=== PATIENT | female | born 1945 | race Caucasian/White ===

== ENCOUNTER 2016-07-16 19:40 | Emergency (ER) ==
[2016-07-16 19:52] VITALS: BP 152/76; TEMP 99.1; BMI 36.7
--- NOTE | 2016-07-16 21:35 | ED.PDOC ---
General ED Provider: Dr. KANE SCHULZ Chief Complaint: Extremity Pain/Injury Stated Complaint: patient is a 70 year old female who comes to the Er with complaints of right arm pain. she had shoulder surgery last week withdressing applied. She has been guarding her shoulder. Today she woke up with bruzing on in and wanted it to be checked out. The orthopedic dotor told her the dressing to be removed today Time Seen by Physician: 21:30 Mode of Arrival: Wheelchair Information Source: Patient Exam Limitations: No limitations Primary Care Provider: MARIA BRYANT Nursing and Triage Documentation Reviewed and Agree: Yes Musculoskeletal Complaint Exam - Shoulder Pain Complaint/Exam Mechanism of Injury: Reports: Other (recent surgery ) Onset/Duration: 3 days Symptoms Are: Still present Timing: Constant Initial Severity: Moderate Current Severity: Moderate Location: Reports: Discrete Character: Reports: Aching, Throbbing Aggravating: Reports: Movement, Lifting Associated Signs and Symptoms: Reports: Swelling, Bruising. Denies: Redness, Fever, Weakness, Numbness, Tingling Related History: Denies: Similar episode Non-Orthopedic Risk Factors: Reports: None DVT Risk Factors: Reports: None Septic Arthritis Risk Factors: Reports: None Shoulder Findings: Present: Swelling. Absent: Abnormal contour, Rotation, Erythema, Warmth Tenderness: Present: Rotator cuff muscles Limited Range of Motion: Present: Rotator cuff muscles Differential Diagnoses: Sprain, Strain Review of Systems - Review Of Systems Constitutional: Reports: No symptoms Eyes: Reports: No symptoms Ears, Nose, Mouth, Throat: Reports: No symptoms Respiratory: Reports: No symptoms Cardiac: Reports: No symptoms GI: Reports: No symptoms : Reports: No symptoms Musculoskeletal: Reports: Joint pain Skin: Reports: No symptoms Neurological: Reports: Anxiety Endocrine: Reports: No symptoms Hematologic/Lymphatic: Reports: No symptoms All Other Systems: Reviewed and Negative Past Medical History - Past Medical History Previously Healthy: No Endocrine: Reports: DM 2 Cardiovascular: Reports: CAD, Hypertension Respiratory: Reports: COPD Hematological: Reports: Anemia Gastrointestinal: Reports: None Genitourinary: Reports: None Neuro/Psych: Reports: None Musculoskeletal: Reports: Arthritis, Back Pain Cancer: Reports: None Last Menstrual Period: post menopausal - Surgical History General Surgical History: Reports: None - Family History Family History: Reports: None - Social History Smoking Status: Former smoker Hx Substance Use: No Alcohol Screening: None - Immunizations Tetanus Shot up to Date: No (unsure) Physical Exam - Physical Exam Appearance: Well-appearing, Well-nourished Pain Distress: Moderate Eyes: KATHY, EOMI, Conjunctiva clear ENT: Ears normal, Nose normal, Oropharynx normal Neck: Supple Respiratory: Airway patent, Breath sounds clear, Breath sounds equal, Respirations nonlabored Cardiovascular: RRR, Pulses normal, No rub, No murmur GI/: Soft, Nontender, No masses, Bowel sounds normal, No Organomegaly Musculoskeletal: Normal strength, No edema, No calf tenderness, Limited ROM, Edema Skin: Warm, Dry Neurological: Sensation intact, Motor intact, Reflexes intact, Cranial nerves intact, Alert, Oriented Psychiatric: Anxious Critical Care Note - Critical Care Note Total Time (mins): 0 Course - Course Vital Signs: Temp Pulse Resp BP Pulse Ox 07/16/16 19:41 99.1 F 99 H 20 152/76 H 94 L Departure - Departure Time of Disposition: 21:58 Disposition: HOME SELF-CARE Discharge Problem: Shoulder contusion Instructions: Contusion in Adults (ED), Rotator Cuff Injury (ED) Condition: Stable Pt referred to PMD for follow-up: Yes Additional Instructions: Follow up with PCP in 3 days with PCP continue home pain medications. changes dressing as needed Allergies/Adverse Reactions: Allergies sulfamethoxazole [From Bactrim] Adverse Reaction (Verified 07/16/16 19:51) ABD PAIN trimethoprim [From Bactrim] Adverse Reaction (Verified 07/16/16 19:51) ABD PAINS PAPER TAPE Adverse Reaction (Uncoded 07/16/16 19:51) PULLS SKIN OFF Home Medications: Ambulatory Orders Albuterol Sulfate 0.083% Neb [Albuterol 0.083% Neb] 1 vial IH BID PRN 03/27/13 Cholecalciferol (Vitamin D3) [Vitamin D] 1,000 units PO DAILY 03/27/13 Diltiazem HCl [Diltiazem ER] 60 mg PO BID 03/27/13 Glipizide 10 mg PO DAILY 03/27/13 Levothyroxine Sodium [Synthroid] 0.05 mg PO DAILY 03/27/13 Metformin HCl [Metformin HCl ER] 1,000 mg PO BID 03/27/13 Simvastatin 20 mg PO DAILY 03/27/13 Aspirin [Aspirin EC] 81 mg PO DAILYWM 01/02/14 Cyanocobalamin (Vitamin B-12) [B-12] 1,000 mcg PO DAILY 12/12/15 Hydrocodone/Acetaminophen [[place] 10-325 Tablet] 1 each PO TID PRN 12/12/15 [place]-3S/Dha/Epa/Fish Oil [[place]-3 Fish Oil 1,000 mg Sfgl] 1 each PO BID Pneumoc 13-Lisa Conj-Dip Crm/Pf [Prevnar 13 Syringe] 0.5 ml IM ONCE 12/12/15 Alendronate Sodium [Fosamax] 70 mg PO WEEKLY 07/16/16 Lisinopril/Hydrochlorothiazide [Lisinopril-Hctz 10-12.5 mg Tab] 10 - 12.5 mg PO DAILY 07/16/16 Oxycodone-Acetaminophen 10-325 [Percocet 10-325] 10 - 325 mg PO BID 07/16/16 Transfer Form Completed: Yes Disposition Discussed With: Patient
== END 2016-07-16 22:05 | disposition home or self-care (01) ==
LOC: ED 19:40
DX: S40.011A Contusion of right shoulder, initial encounter (principal); Z98.890 Other specified postprocedural states
CPT/HCPCS: 99283

== ENCOUNTER 2016-09-05 14:00 | Outpatient (RCR) ==
--- NOTE | 2016-08-16 15:21 | RS.OPPTEV2 ---
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 State she was helping the patient transfer and the lady pulled on her arm and she heard it pop. She received Outpatient therapy to help with pain and ROM. She continued to have pain, which led to further assessment and surgery. Prior Level of Function.....Patient was independent with: ADL's, Self Care, Caregiving, Ambulation/Mobility, Community Integration/Access Level of Function: Patient is very active. 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 Functional Limitations: Sleep, Self Care, ADL's, Reaching, Pushing, Pulling, Lifting, Carrying, Community Access/Integration Current Subjective/complaints:: Patient reports she is right hand dominant. States she has been using the right UE for whatever she needs to. States she has been mowing, weedeating, changing beds, sweeping, etc. States it hurts when she uses the right arm, but she ignores it and goes on. She was told she could come out of the sling the day after surgery when the nerve block wore off. States the doctor's office also instructed her to perform pendulum exercises and to walk the fingers up the wall. She is taking pain medication twice a day and ices the shoulder every morning. Reports she mostly has aching and swelling into the right forearm and elbow. Reports she went to the ER 3 days after her surgery because of swelling and bruising throughout the right bicep area and anterior shoulder area. Reports she was told not to lift over one pound. States she has difficulty with opening doors, turning the steering wheel while driving, and has difficulty cooking. Describes some difficulty with fixing hair and donning clothes with right UE. Treatment Side (optional): Right *Precautions: Diabetic Medical History Medical History: Hypertension, Diabetes Medical History Comments:: Pt reports Bilateral CTR surgeries, L TKA in 2009, DMII, HTN, SKin CA, GAll bladder removed, 2 C-sections. Surgical History: Knee Replacement Surgical History Comments:: L TKA, bilateral CTR, 2 c sections, gall bladder removed, Skin CA Smoking Status: Never smoker Hx Home Medications: Pain medication twice a day. Name of medication not given. Patient's Goals: Her goal is to get relief of right UE pain and regain full use of the right UE. Pain Assessment - Pain Description Pain Location: right shoulder, forearm/elbow Pain Description: Aching Current Pain Intensity: 6/10 Worst Pain Intensity: 9/10 Functional Outcome Measure UE Functional Index: 30 (30/80=62.5% impaired) - G Codes & Severity Modifier G Codes & Modifier: selfcare current CL. selfcare goal CJ Source of G Code score: UE functional scale Observation - Observation Inspection: Patient demonstrates with well-healing incision at anterior/ superior aspect of GH joint, and one small scope incision more medial. No bruising or redness noted. Patient points to right lateral forearm that does demonstrates slight swelling. Posture: Forward Head, Rounded Shoulders Handedness: Right Shoulder ROM: Left WFL's Shoulder Muscle Strength: Left WFL's - Right Shoulder ROM Comments: Patient performs AROM without being prompted. She demonstrates approximately 130 degrees flexion and scaption. ER approximately 45 degrees. Right elbow with full active extension and flexion. Passive shoulder flexion to 150 degrees, abduction 120 degrees, ER 50-55 degrees. - Right Shoulder Strength Comments: right shoulder strength at least 3/5. Palpation Comments:: Patient reports no significant tenderness over the shoulder joint. States she does have tenderness along the lateral forearm below the elbow. Sensation - Sensation Right Upper Extremity: Intact/Normal Left Upper Extremity: Intact/Normal Interventions - Exercise/Activities/Manual Therapy Exercises/Activities: Patient assisted with ROM into right shoulder flexion and scaption. ER performed within pain-free range. Patient instructed to perform pendulum exercises and scapular retraction. Manual Therapy: NA HOME EXERCISE PROGRAM: Pendulum exercises and scapular retraction. - Charges Total Direct Minutes: 55 mins Total Treatment Time: 55 mins Procedures billed for this date of service:: EVAL Low complexity Assessment Assessment: Patient presents 4 weeks s/p right shoulder athroscopic subacromial decompression, distal clavicle resection, and open biceps tenodesis. She is very active and reports using the right UE for a wide variety of activities with pain. Advised patient to avoid activities that cause pain, to protect the shoulder. She reports difficulty with driving, selfcare, and ADL's. She demonstrates good potential to gain functional use of the right UE with skilled therapy. Patient Education: Education of diagnosis, Body/Joint mechanics, Home Exercise Program, Home Safety, Activity Modification, Education of Plan of Care Rehab Potential: Good Short Term Goals Goal #1: Pt compliant and independent in basic HEP. Goal to be met by: 08/29/16 Goal #2: Right shoulder PROM WFL's. Goal to be met by: 08/29/16 Goal #3: Pt to use right UE at and below shoulder height with minimal discomfort. Goal to be met by: 09/06/16 Goal #4: Right shoulder strength 4/5 in available range. 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 Goal to be met by: 09/29/16 Goal #2: Score on UE functional scale improved to 58/80. Goal to be met by: 09/29/16 Goal #3: Pt able to use right UE for all selcare and ADL's without pain. Goal to be met by: 09/29/16 Goal #4: Pt able to return to recreational/work activities without limitation. Goal to be met by: 09/29/16 Plan - Treatment to be Provided Procedures: Therapeutic Exercises, Therapeutic Activity, Manual Therapy, Patient Education Modalities: Electrical Stimulation, Cryotherapy - Treatment Plan Frequency: 2-3 X week Duration: 4 weeks ORDER # VISITS AND/OR THROUGH DATE: 09/29/16 - Treatment Code (1) Stiffness of right shoulder joint Comments: M25.611 (2) Shoulder pain Qualifiers: Laterality: right Chronicity: acute Qualified Description: Acute pain of right shoulder Qualifier Code(s): (M25.511) Pain in right shoulder (3) Status post shoulder surgery Comments: Z89.890
--- NOTE | 2016-08-18 11:27 | RS.OPPTDN ---
Subjective Date of Note: 08/18/16 Visit #: 2 Date of Evaluation: 08/15/16 Payer Source: MEDICARE Treatment Diagnosis: Right shoulder stiffness, right UE pain Current Subjective/complaints:: Patient reports she may be overdoing it,is really sore today. *Precautions: Diabetic Pain Assessment - Pain Description Pain Location: right shoulder, forearm/elbow Pain Description: Aching Current Pain Intensity: 6/10 - Treatment Modality: Electrical Stim Unattended Parameters/Method Applied: 20 mins. high volt to R shoulder,one channel 1 @ 125pv. Patient Position: Sitting - Heat/Cryotherapy Treatment: Cryotherapy (concurrent with e-stim.) Interventions - Exercise/Activities/Manual Therapy Exercises/Activities: Patient assisted with ROM into right shoulder flexion and scaption. ER performed within pain-free range. Patient instructed to perform pendulum exercises and scapular retraction.Also did gentle AROM with 1# in supine and shoulder supported.Patient education for joint protection and learning to differentiate between sharp pain and muscle soreness. Total minutes of Exercise: 20 Manual Therapy: NA Total minutes of Manual Therapy: 0 HOME EXERCISE PROGRAM: Pendulum exercises and scapular retraction. - Charges Total Direct Minutes: 20 Total Treatment Time: 40 Procedures billed for this date of service:: cp,e-stim,ex 1 Assessment: Patient tolerates passive exercises well,reports slight increase in pain with shoulder elevation today.She has no difficulty with biceps curls with one pound weight.We discussed at length to protect the shoulder joint as she is now 5 weeks post-op. Patient Education: Education of diagnosis, Body/Joint mechanics, Home Exercise Program, Home Safety, Activity Modification, Education of Plan of Care Short Term Goals Goal #1: Pt compliant and independent in basic HEP. Goal to be met by: 08/29/16 Progress towards Goal:: Progressing Goal #2: Right shoulder PROM WFL's. Goal to be met by: 08/29/16 Progress towards Goal:: Progressing Goal #3: Pt to use right UE at and below shoulder height with minimal discomfort. Goal to be met by: 09/06/16 Goal #4: Right shoulder strength 4/5 in available range. 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 Goal to be met by: 09/29/16 Progress towards goal: Progressing Goal #2: Score on UE functional scale improved to 58/80. Goal to be met by: 09/29/16 Goal #3: Pt able to use right UE for all selcare and ADL's without pain. Goal to be met by: 09/29/16 Goal #4: Pt able to return to recreational/work activities without limitation. Goal to be met by: 09/29/16 Plan PLAN OF CARE EXPIRES ON:: 09/29/16 ORDER # VISITS AND/OR THROUGH DATE: 09/29/16 PLAN: Continue Plan of Care
--- NOTE | 2016-08-23 11:12 | RS.OPPTDN ---
Subjective Date of Note: 08/23/16 Visit #: 3 Date of Evaluation: 08/15/16 Payer Source: MEDICARE Treatment Diagnosis: Right shoulder stiffness, right UE pain Current Subjective/complaints:: Reports her pain level varies dependent upon position of the R UE,also tender to touch. *Precautions: Diabetic Pain Assessment - Pain Description Pain Location: right shoulder, forearm/elbow Pain Description: Aching Current Pain Intensity: 4/10 Other Comments regarding Pain:: Driving increases her R UE pain. - Treatment Modality: Electrical Stim Unattended Parameters/Method Applied: 20 mins. to R shoulder,high volt,one channel @ 120 pv. Patient Position: Sitting - Heat/Cryotherapy Treatment: Cryotherapy (concurrent with e-stim) Interventions - Exercise/Activities/Manual Therapy Exercises/Activities: 20 mins. ,beginning with R biceps curls,pronation/ supination of wrist,using 1#.AAROM for scaption ,shoulder IR/ER.Ended session with pendulum exercises. Total minutes of Exercise: 20 Manual Therapy: NA Total minutes of Manual Therapy: 0 HOME EXERCISE PROGRAM: Pendulum exercises and scapular retraction. - Charges Total Direct Minutes: 20 Total Treatment Time: 40 Procedures billed for this date of service:: cp,e-stim,ex 1 Assessment: Patient requires cues to relax the R shoulder as she does the pendulum exercises,but has good return demo of other exercises.She has good understanding of pain control,using ice or heat. Patient Education: Education of diagnosis, Body/Joint mechanics, Home Exercise Program, Home Safety, Activity Modification, Education of Plan of Care Patient demonstrates compliance with HEP?: Yes Short Term Goals Goal #1: Pt compliant and independent in basic HEP. Goal to be met by: 08/29/16 Progress towards Goal:: Progressing Goal #2: Right shoulder PROM WFL's. Goal to be met by: 08/29/16 Progress towards Goal:: Progressing Goal #3: Pt to use right UE at and below shoulder height with minimal discomfort. Goal to be met by: 09/06/16 Goal #4: Right shoulder strength 4/5 in available range. Goal to be met by: 09/06/16 [facility] Goals Goal #1: Pt knows HEP and to continue ex's to maintain functional level at D/C. Goal to be met by: 09/29/16 Progress towards goal: Progressing Goal #2: Score on UE functional scale improved to 58/80. Goal to be met by: 09/29/16 Goal #3: Pt able to use right UE for all selcare and ADL's without pain. Goal to be met by: 09/29/16 Goal #4: Pt able to return to recreational/work activities without limitation. Goal to be met by: 09/29/16 Plan PLAN OF CARE EXPIRES ON:: 09/29/16 ORDER # VISITS AND/OR THROUGH DATE: 09/29/16 PLAN: Continue Plan of Care
--- NOTE | 2016-08-25 10:46 | RS.OPPTDN ---
Subjective Date of Note: 08/25/16 Visit #: 4 Date of Evaluation: 08/15/16 Payer Source: MEDICARE Treatment Diagnosis: Right shoulder stiffness, right UE pain Current Subjective/complaints:: Patient reports the R shoulder is aching ,but no sharp pain at rest.She reports she is able to sleep well. *Precautions: Diabetic Pain Assessment - Pain Description Pain Location: right shoulder, forearm/elbow Pain Description: Dull, Aching Current Pain Intensity: not rated - Treatment Modality: Electrical Stim Unattended Parameters/Method Applied: 20 mins. high volt,one channel @ 110-125 pv. to R shoulder. Patient Position: Sitting - Heat/Cryotherapy Treatment: Cryotherapy (concurrent with e-stim) Interventions - Exercise/Activities/Manual Therapy Exercises/Activities: 20 mins. ,beginning with R biceps curls,pronation/ supination of wrist,using 1#.AROM for scaption ,elevation,shoulder IR/ER.HEP review of same exercises. Total minutes of Exercise: 20 Manual Therapy: NA Total minutes of Manual Therapy: 0 HOME EXERCISE PROGRAM: Pendulum exercises and scapular retraction.1# weight restriction for AROM of biceps curls,forearm sup/pronation. - Charges Total Direct Minutes: 20 Total Treatment Time: 40 Procedures billed for this date of service:: cp,e-stim,ex 1 Assessment: Patient has improved motion today with less report of sharp pain.She uses good compensatory techniques for ADL's,trying to protect the R UE. Patient Education: Education of diagnosis, Body/Joint mechanics, Home Exercise Program, Home Safety, Activity Modification, Education of Plan of Care Patient demonstrates compliance with HEP?: Yes Short Term Goals Goal #1: Pt compliant and independent in basic HEP. Goal to be met by: 08/29/16 Progress towards Goal:: Progressing Goal #2: Right shoulder PROM WFL's. Goal to be met by: 08/29/16 Progress towards Goal:: Progressing Goal #3: Pt to use right UE at and below shoulder height with minimal discomfort. Goal to be met by: 09/06/16 Progress towards Goal:: Progressing Goal #4: Right shoulder strength 4/5 in available range. 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 Goal to be met by: 09/29/16 Progress towards goal: Progressing Goal #2: Score on UE functional scale improved to 58/80. Goal to be met by: 09/29/16 Goal #3: Pt able to use right UE for all selcare and ADL's without pain. Goal to be met by: 09/29/16 Progress towards goal: Progressing Goal #4: Pt able to return to recreational/work activities without limitation. Goal to be met by: 09/29/16 Progress towards goal: Progressing Plan PLAN OF CARE EXPIRES ON:: 09/29/16 ORDER # VISITS AND/OR THROUGH DATE: 09/29/16 PLAN: Continue Plan of Care
--- NOTE | 2016-08-26 15:09 | RS.CXNS ---
Date of scheduled appointment: 08/26/16 Type: Rescheduled (Patient presents to department for appointment. States she is feeling bad due to bronchitis. Asks to reschedule appointment for next week.)
--- NOTE | 2016-08-30 11:06 | RS.CXNS ---
Date of scheduled appointment: 08/30/16 Type: Cancel Reason for Cancel/NS: Patient called ,has Dr. hall,unable to keep PT appt.
--- NOTE | 2016-09-01 15:07 | RS.OPPTDN ---
Subjective Date of Note: 09/01/16 Visit #: 5 Date of Evaluation: 08/15/16 Payer Source: MEDICARE Treatment Diagnosis: Right shoulder stiffness, right UE pain Current Subjective/complaints:: Reports the shoulder feels better today,no pain at rest. *Precautions: Diabetic Pain Assessment - Pain Description Pain Location: right shoulder, forearm/elbow Pain Description: Dull, Aching Current Pain Intensity: 0 at rest - Treatment Parameters/Method Applied: 20 mins. high volt to R shoulder,one channel 1 @ 90 pv. Patient Position: Sitting - Heat/Cryotherapy Treatment: Cryotherapy (concurrent with e-stim) Interventions - Exercise/Activities/Manual Therapy Exercises/Activities: 25 mins. ,beginning with R biceps curls,pronation/ supination of wrist,using 2#.AROM for scaption ,elevation,shoulder IR/ER.HEP review of same exercises.3# wand exercises for 3/15 biceps curls and shoulder elevation to 90 degrees.Ended with AROM of shoulder IR/ER x 15 repswith R Ue in throwing position. Total minutes of Exercise: 25 Manual Therapy: NA Total minutes of Manual Therapy: 0 HOME EXERCISE PROGRAM: Pendulum exercises and scapular retraction.1# weight restriction for AROM of biceps curls,forearm sup/pronation. - Charges Total Direct Minutes: 25 Total Treatment Time: 45 Procedures billed for this date of service:: cp,e-stim,ex 2 Assessment: Patient progressing ,has less pain with active motion today,is attentive to recommendations for HEP and joint protection. Patient Education: Education of diagnosis, Body/Joint mechanics, Home Exercise Program, Home Safety, Activity Modification, Education of Plan of Care Patient demonstrates compliance with HEP?: Yes Short Term Goals Goal #1: Pt compliant and independent in basic HEP. Goal to be met by: 08/29/16 Progress towards Goal:: Progressing Goal #2: Right shoulder PROM WFL's. Goal to be met by: 08/29/16 Progress towards Goal:: Progressing Goal #3: Pt to use right UE at and below shoulder height with minimal discomfort. Goal to be met by: 09/06/16 Progress towards Goal:: Progressing Goal #4: Right shoulder strength 4/5 in available range. 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 Goal to be met by: 09/29/16 Progress towards goal: Progressing Goal #2: Score on UE functional scale improved to 58/80. Goal to be met by: 09/29/16 Goal #3: Pt able to use right UE for all selcare and ADL's without pain. Goal to be met by: 09/29/16 Progress towards goal: Progressing Goal #4: Pt able to return to recreational/work activities without limitation. Goal to be met by: 09/29/16 Progress towards goal: Progressing Plan PLAN OF CARE EXPIRES ON:: 09/29/16 ORDER # VISITS AND/OR THROUGH DATE: 09/29/16 PLAN: Continue Plan of Care
--- NOTE | 2016-09-06 08:39 | RS.OPPTDN ---
Subjective Date of Note: 09/06/16 Visit #: 6 Date of Evaluation: 08/15/16 Payer Source: MEDICARE Treatment Diagnosis: Right shoulder stiffness, right UE pain Current Subjective/complaints:: Patient requesting to stop therapy due to good progress,feels comfortable with her exercises.She is push mowing ,housework, cleaning,with good awareness of the position of her R UE for protecting the injury. *Precautions: Diabetic Pain Assessment - Pain Description Pain Location: right shoulder, forearm/elbow Pain Description: Dull, Aching Current Pain Intensity: 0 at rest - Heat/Cryotherapy Treatment: Cryotherapy (20 mins. prior to exercises) Interventions - Exercise/Activities/Manual Therapy Exercises/Activities: 25 mins. ,beginning with R biceps curls,pronation/ supination of wrist,using 3#.AROM for scaption ,elevation,shoulder IR/ER.HEP review of same exercises.HEP review. Total minutes of Exercise: 25 Manual Therapy: NA Total minutes of Manual Therapy: 0 HOME EXERCISE PROGRAM: Pendulum exercises and scapular retraction.1# weight restriction for AROM of biceps curls,forearm sup/pronation. - Charges Total Direct Minutes: 25 Total Treatment Time: 45 Procedures billed for this date of service:: cp,ex 2 Assessment: Patient met all STG's,met 2/4 LTG's,with the remaining two LTG's partially met.We reviewed safety precautions as she is very active ,and reminded her of the Dr's. protocol and lifting restrictions. Patient Education: Education of diagnosis, Body/Joint mechanics, Home Exercise Program, Home Safety, Activity Modification, Education of Plan of Care Patient demonstrates compliance with HEP?: Yes Short Term Goals Goal #1: Pt compliant and independent in basic HEP. Goal to be met by: 08/29/16 Progress towards Goal:: Met Goal #2: Right shoulder PROM WFL's. Goal to be met by: 08/29/16 Progress towards Goal:: Met Goal #3: Pt to use right UE at and below shoulder height with minimal discomfort. Goal to be met by: 09/06/16 Progress towards Goal:: Met Goal #4: Right shoulder strength 4/5 in available range. 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 Goal to be met by: 09/29/16 Progress towards goal: Met Goal #2: Score on UE functional scale improved to 58/80. Goal to be met by: 09/29/16 (69 score) Progress towards goal: Met Goal #3: Pt able to use right UE for all selcare and ADL's without pain. Goal to be met by: 09/29/16 Progress towards goal: Partially Met Goal #4: Pt able to return to recreational/work activities without limitation. Goal to be met by: 09/29/16 Progress towards goal: Partially Met Plan PLAN OF CARE EXPIRES ON:: 09/29/16 ORDER # VISITS AND/OR THROUGH DATE: 09/29/16 PLAN: Plan for Discharge
--- NOTE | 2016-10-25 14:15 | RS.OPPTDC ---
Date of Discharge: 09/05/16 Date of Evaluation: 08/15/16 Number of Visits: 6 Treatment Diagnosis: Right shoulder stiffness, right UE pain Current Complaints/Gains: Pt requests to stop therapy due to good progress. She feels comfortable with HEP. She is push-mowing, weed-eating, and performing housework. Reports she does have some pain with use of the right UE, but she uses it anyway. Pain Assessment - Pain Description Pain Location: right shoulder, forearm/elbow Pain Description: Dull, Aching Current Pain Intensity: 0 at rest Functional Outcome Measure UE Functional Index: 69 (69/80=13.75%) - G Codes & Severity Modifier G Codes & Modifier: self care goal CJ. self care D/C CI Source of G Code score: UE functional scale Interventions - Exercise/Activities/Manual Therapy Exercises/Activities: NA Manual Therapy: NA HOME EXERCISE PROGRAM: Pendulum exercises and scapular retraction.1# weight restriction for AROM of biceps curls,forearm sup/pronation. - Objective Findings Observations,measurements,etc.: Right shoulder and elbow PROM is WNL's, AROM is WFL's. Strength is 4+/5. Demonstrates that she can reach back of her head and behind her waist without pain. - Charges Total Direct Minutes: NA Total Treatment Time: NA Procedures billed for this date of service:: NA Assessment Assessment: Patient is pleased with progress. She is able to do all of her house and yard work using the right UE. She is confident that she can continue her HEP on her own. Short Term Goals Goal #1: Pt compliant and independent in basic HEP. Goal to be met by: 08/29/16 Progress towards Goal:: Met Goal #2: Right shoulder PROM WFL's. Goal to be met by: 08/29/16 Progress towards Goal:: Met Goal #3: Pt to use right UE at and below shoulder height with minimal discomfort. Goal to be met by: 09/06/16 Progress towards Goal:: Met Goal #4: Right shoulder strength 4/5 in available range. 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 Goal to be met by: 09/29/16 Progress towards goal: Met Goal #2: Score on UE functional scale improved to 58/80. Goal to be met by: 09/29/16 (69 score) Progress towards goal: Met Goal #3: Pt able to use right UE for all selcare and ADL's without pain. Goal to be met by: 09/29/16 Progress towards goal: Partially Met Goal #4: Pt able to return to recreational/work activities without limitation. Goal to be met by: 09/29/16 Progress towards goal: Partially Met Plan Reason for Discharge:: Self-Discharge
== END 2016-09-11 ==
PROVIDERS: ATTEND Orthopaedic Surgery
DX: M25.511 Pain in right shoulder (principal); M75.21 Bicipital tendinitis, right shoulder; Z98.890 Other specified postprocedural states

== ENCOUNTER 2017-05-22 02:50 | Outpatient (CLI) | END 2017-05-22 02:51 | disposition left against medical advice (07) | LOC: AMBL 02:50 | PROVIDERS: ATTEND Family Medicine | DX: L29.9 Pruritus, unspecified (principal); R52 Pain, unspecified; R25.8 Other abnormal involuntary movements ==

== ENCOUNTER 2017-08-08 10:01 | Outpatient (CLI) ==
--- NOTE | 2017-08-09 09:39 | MAMMO ---
EXAM: Bilateral digital screening mammogram (2-D and 3-D) History: Screening Comparison: Bilateral mammogram 04/25/2012 Findings: MLO and CC views of bilateral breasts demonstrate predominately fatty replaced breast pare nchyma. CAD was reviewed by the radiologist. Tomosynthesis was performed. Stable benign bilateral va scular calcifications. There are no dominant masses, no suspicious microcalcifications and no cami ectural distortions Impression: Benign stable mammogram. Recommend followup routine screening mammography in 1 year. BIRADS 2
== END 2017-08-08 10:02 | disposition home or self-care (01) ==
LOC: RAD 10:01
PROVIDERS: ATTEND Emergency Medicine
DX: Z12.31 Encounter for screening mammogram for malignant neoplasm of breast (principal)
CPT/HCPCS: 77067

== ENCOUNTER 2017-09-11 11:55 | Outpatient (CLI) | END 2017-09-11 11:56 | disposition home or self-care (01) | LOC: RHC-LAB 11:55 | PROVIDERS: ATTEND Emergency Medicine | DX: E11.9 Type 2 diabetes mellitus without complications (principal); R06.02 Shortness of breath; E78.5 Hyperlipidemia, unspecified; J44.9 Chronic obstructive pulmonary disease, unspecified; I10 Essential (primary) hypertension | CPT/HCPCS: 36415; 80053; 80061; 83036; 83880; 84443; 85025 ==

== ENCOUNTER 2017-09-13 10:56 | Outpatient (CLI) | payer OTHER ==
--- NOTE | 2017-09-13 11:28 | DI ---
EXAM: Three views of the right ankle. History: Right ankle pain. Comparison: Right ankle radiograph 04/10/2012 Findings: No acute fracture or dislocation. Subcutaneous edema at the ankle. Small to moderate daisy ntar spur. Mild polyarticular joint space narrowing. The subchondral cysts seen within the medial t alar dome measuring 5 mm. Impression: 1. No acute osseous abnormality. 2. Subchondral cysts within the medial talar dome. 3. Diffuse subcutaneous edema. 4. Small to moderate plantar spur.
--- NOTE | 2017-09-13 11:50 | DI ---
Exam: Three x-rays of the right foot. Comparison: None available. Reason for exam: Pain in right foot. FINDINGS: No acute fracture or malalignment. Moderate degenerative changes are seen throughout the r ight foot with joint space narrowing and osteophyte formation. There are moderately sized calcaneal enthesiophytes. No unexplained calcific soft tissue density or r adiopaque retained foreign body. Impression: No obvious fracture or dislocation in the right foot with moderate degenerative disease, osseous cassy neralization, joint space narrowing, and osteophyte formation. Image interpretation is somewhat limit ed by the degenerative disease and osseous demineralization. If clinical suspicion is high for an ac native osseous injury, further evaluation may be performed.
== END 2017-09-13 10:57 | disposition home or self-care (01) ==
LOC: RAD 10:56
PROVIDERS: ATTEND Emergency Medicine
DX: M79.671 Pain in right foot (principal); M25.571 Pain in right ankle and joints of right foot

== ENCOUNTER 2017-10-03 17:19 | Emergency (ER) | payer OTHER ==
[2017-10-03 17:31] VITALS: BP 165/75; TEMP 97.3; BMI 38.0
--- NOTE | 2017-10-03 18:33 | ED.PDOC ---
General ED Provider: Dr. TRENT FLORES Chief Complaint: Back Pain Stated Complaint: Low back /Rt Hip Pain. States she has been very active arround her home with various yard activities. Bothered last several days with pain in lower back with radiation around rt hip into lat and anterior thigh. Worried she may have UTI Time Seen by Physician: 18:20 Mode of Arrival: Walk-In Information Source: Patient Exam Limitations: No limitations Primary Care Provider: [facility] Nursing and Triage Documentation Reviewed and Agree: Yes Reviewed sepsis parameters & appropriate labs ordered?: Yes System Inflammatory Response Syndrome: Not Applicable Sepsis Protocol: For patient's 13 years and over: Temp is 96.8 and below OR 101 and greater Pulse >90 BPM Resp >20/minute Acutely Altered Mental Status Are patient's symptoms suggestive of a new infection, such as: -Pneumonia -Skin, Soft Tissue -Endocarditis -UTI -Bone, Joint Infection -Implantable Device -Acute Abdominal Infection -Wound Infection -Meningitis -Blood Stream Catheter Infection -Unknown System Inflammatory Response Syndrome: Not Applicable Review of Systems - Review Of Systems Constitutional: Reports: No symptoms Eyes: Reports: No symptoms Ears, Nose, Mouth, Throat: Reports: No symptoms Respiratory: Reports: No symptoms Cardiac: Reports: No symptoms GI: Reports: No symptoms : Reports: No symptoms Musculoskeletal: Reports: Back pain, Joint pain, Muscle pain, Muscle stiffness Skin: Reports: No symptoms Neurological: Reports: No symptoms Endocrine: Reports: No symptoms Hematologic/Lymphatic: Reports: No symptoms All Other Systems: Reviewed and Negative Past Medical History - Past Medical History Previously Healthy: No Endocrine: Reports: DM 2 Cardiovascular: Reports: CAD, Hypertension Respiratory: Reports: COPD Hematological: Reports: Anemia Gastrointestinal: Reports: None Genitourinary: Reports: None Neuro/Psych: Reports: None Musculoskeletal: Reports: Arthritis, Back Pain Cancer: Reports: None Last Menstrual Period: menopause - Surgical History General Surgical History: Reports: None - Family History Family History: Reports: None - Social History Smoking Status: Former smoker Hx Substance Use: No Alcohol Screening: None Physical Exam - Physical Exam Appearance: Well-appearing, Well-nourished Ill-appearing: None Pain Distress: Moderate Eyes: KATHY, EOMI, Conjunctiva clear ENT: Ears normal, Nose normal, Oropharynx normal Respiratory: Airway patent, Breath sounds clear, Breath sounds equal, Respirations nonlabored Cardiovascular: RRR, Pulses normal, No rub, No murmur GI/: Soft, Nontender, No masses, Bowel sounds normal, No Organomegaly Musculoskeletal: Normal strength, ROM intact, No edema, No calf tenderness, Limited ROM (Tenderness over Rt Lumbar spine and Rt hip-posterior lateral) Skin: Warm, Dry, Normal color Neurological: Sensation intact, Motor intact, Reflexes intact, Cranial nerves intact, Alert, Oriented Psychiatric: Affect appropriate, Mood appropriate Critical Care Note - Critical Care Note Total Time (mins): 0 Course - Course Hematology/Chemistry: 10/03/17 18:56 10/03/17 18:56 Orders, Labs, Meds: Lab Review 10/03/17 10/03/17 10/03/17 18:24 18:56 18:56 WBC 10.71 H RBC 4.16 L Hgb 12.8 Hct 37.7 MCV 90.6 MCH 30.8 MCHC 34.0 RDW Coeff of Emely 12.8 Plt Count 298 Immature Gran % (Auto) 0.3 Neut % (Auto) 58.1 Lymph % (Auto) 30.7 [place] % (Auto) 8.7 Eos % (Auto) 1.9 Baso % (Auto) 0.3 Immature Gran # (Auto) 0.0 Neut # (Auto) 6.2 Lymph # (Auto) 3.3 [place] # (Auto) 0.9 Eos # (Auto) 0.2 Baso # (Auto) 0.0 Sodium 134 L Potassium 3.8 Chloride 96 L Carbon Dioxide 25 Anion Gap 16.8 BUN 14 Creatinine 0.97 Estimated GFR (MDRD) 56.00 BUN/Creatinine Ratio 14.43 Glucose 144 H Calcium 9.5 Total Bilirubin 0.4 AST 15 ALT 12 Alkaline Phosphatase 47 L Total Protein 7.0 Albumin 3.6 Globulin 3.4 Albumin/Globulin Ratio 1.06 Urine Color Yellow Urine Clarity Clear Urine pH 5.5 Ur Specific [place] 1.020 Urine Protein Negative Urine Glucose (UA) Negative Urine Ketones Negative Urine Blood Negative Urine Nitrite Negative Urine Bilirubin Negative Urine Urobilinogen 0.2 Ur Leukocyte Esterase 1+ Urine Microscopic WBC 10-20 Ur Squamous Epith Cells 5-10 Urine Bacteria 1+ Orders Category Date Time Status CBC W/ AUTO DIFF Stat LAB 10/03/17 18:56 Completed CMP [COMPREHENSIVE METABOLIC PANEL] Stat LAB 10/03/17 18:56 Completed UA [URINALYSIS C & S IF INDICATED] Stat LAB 10/03/17 18:24 Completed URINE CULTURE Stat LAB 10/03/17 18:[address] LUMBAR SPINE W/O CONTRAST Stat RADS 10/03/17 18:[address] PELVIS W/O CONTRAST Stat RADS 10/03/17 18:45 Completed Vital Signs: Temp Pulse Resp BP Pulse Ox 10/03/17 17:24 97.3 F L 110 H 20 165/75 H 96 Departure - Departure Time of Disposition: 19:40 Disposition: HOME SELF-CARE Discharge Problem: Low back pain, Hip pain, right, Arthritis of right sacroiliac joint, Femoral acetabular impingement Instructions: Low Back Strain (ED), Arthritis (ED), Arthralgia (ED), Lower Back Exercises (ED), Sacroiliitis (ED) Condition: Good Pt referred to PMD for follow-up: Yes (1 week) IPMP verified?: No Additional Instructions: Apply warm moist heat to lower back and hip Ice applied for acute pain Ibuprofen 600 mg every 6 hours for pain control avoid strenuous activity Follow up PCP in next week Allergies/Adverse Reactions: Allergies sulfamethoxazole [From Bactrim] Adverse Reaction (Verified 10/03/17 17:32) ABD PAIN trimethoprim [From Bactrim] Adverse Reaction (Verified 10/03/17 17:32) ABD PAINS instant potatoes Allergy (Severe, Uncoded 10/03/17 17:32) swelling, rash PAPER TAPE Adverse Reaction (Uncoded 10/03/17 17:32) PULLS SKIN OFF Home Medications: Ambulatory Orders Albuterol Sulfate 0.083% Neb [Albuterol 0.083% Neb] 1 vial IH BID PRN 03/27/13 Cholecalciferol (Vitamin D3) [Vitamin D] 1,000 units PO DAILY 03/27/13 Diltiazem HCl [Diltiazem ER] 60 mg PO BID 03/27/13 Glipizide 10 mg PO DAILY 03/27/13 Levothyroxine Sodium [Synthroid] 0.05 mg PO DAILY 03/27/13 Metformin HCl [Metformin HCl ER] 1,000 mg PO BID 03/27/13 Simvastatin 20 mg PO DAILY 03/27/13 Aspirin [Aspirin EC] 81 mg PO DAILYWM 01/02/14 Cyanocobalamin (Vitamin B-12) [B-12] 1,000 mcg PO DAILY 12/12/15 Hydrocodone/Acetaminophen [[place] 10-325 Tablet] 1 each PO TID PRN 12/12/15 [place]-3S/Dha/Epa/Fish Oil [[place]-3 Fish Oil 1,000 mg Sfgl] 1 each PO BID Alendronate Sodium [Fosamax] 70 mg PO WEEKLY 07/16/16 Disposition Discussed With: Patient Musculoskeletal Complaint Exam - Back Pain Complaint/Exam Mechanism of Injury: Reports: No known trauma Symptoms Are: Still present Timing: Constant Episodes Lasting: Hours Initial Severity: Moderate Current Severity: Moderate Location: Reports: Radiating Character: Reports: Sharp, Aching, Throbbing Aggravating: Reports: Movements, Lifting, Bending, Walking Alleviating: Reports: Rest Associated Signs and Symptoms: Reports: Swelling Related History: Reports: Similar episode TAD Risk Factors: Reports: None AAA Risk Factors: Reports: None Cauda Equina Risk Factors: Reports: None Epidural Abcess Risk Factors: Reports: None Related Surgical History: Reports: None Focal Tenderness: Yes (Rt ) Paraspinal Muscle Tenderness: Yes (Rt Lower lumbar) Paraspinal Muscle Spasm: Yes Scoliosis: No Lordosis: No Kyphosis: No SLR Test: Right Negative, Left Negative Hip Motion Testing Pain: Right Positive Focal Weakness: Present: None Focal Sensory Loss: Present: None Gait: Present: Abnormal (antalgic Rt) Differential Diagnoses: Arthritis, Fracture, Strain, Sprain, Other (Spinal DJD; Hip OA)
--- NOTE | 2017-10-03 19:33 | CT ---
EXAM: CT pelvis without contrast HISTORY: Right hip and skeletal pelvic pain TECHNIQUE: Multi-slice transaxial helical with coronal and sagittal reformed images COMPARISON: CT pelvis from 12/12/2015 FINDINGS: The bones are osteopenic. The femoral acetabular joint spaces are mildly narrowed bilatera lly. There is mild osteophyte formation at the anterior inferior aspects of the sacroiliac joint spa miriam. The abdominal aorta and iliac arteries are atherosclerotic. Diverticula arise from the sigmoid colon without CT evidence of diverticulitis. The uterus and adnexa are grossly normal. Nonopacifie d bladder is normal. No lymphadenopathy or ascites are appreciated. No body wall hernias. The imag ed portions of the ureters have normal caliber. The bones are free of suspicious osteolytic or osteoblastic lesions. IMPRESSION: 1. No acute fracture or subluxation. 2. Mild femoral acetabular and sacroiliac osteoarthritis. 3. Osteopenia and ASCVD. 4. Colonic diverticulosis without CT evidence of diverticulitis.
--- NOTE | 2017-10-03 19:37 | CT ---
Exam: CT lumbar spine without contrast History: Lower back pain Technique: [address] lumbar spine with multiplanar reformations FINDINGS: Lumbar spine shows normal alignment. Vertebral body height is maintained. No fracture li tadeo are suspicious bony lesion. No immediate paravertebral soft tissue abnormalities. The sacrum is intact. T12-L1: No central canal or foraminal stenosis. L1-L2: No central canal or foraminal stenosis. L2-L3: Ligamentous thickening and generalized disc bulge with mild triangulation of the central minerva l. Mild bilateral foraminal narrowing. L3-L4: Generalized disc bulge and ligamentous thickening with mild triangulation of the central minerva l. Moderate right and mild left foraminal narrowing. L4-L5: Generalized disc bulge with ligamentous thickening and facet enlargement. Moderate bilateral foraminal narrowing. Mild central canal narrowing. L5 S1: Minor posterior disc osteophyte complex does not significantly indent the sac. There is a mi ld - moderate associated bilateral foraminal narrowing. Impression: 1. No acute abnormalities of the lumbar spine. 2. Generally mild to moderate degenerative changes as described.
== END 2017-10-03 20:02 | disposition home or self-care (01) ==
LOC: ED 17:19
DX: M54.5 Low back pain (principal); M25.551 Pain in right hip; M25.859 Other specified joint disorders, unspecified hip; M46.1 Sacroiliitis, not elsewhere classified
CPT/HCPCS: 36415; 80053; 81001; 85025; 87086; 99283

== ENCOUNTER 2017-11-02 12:35 | Observation (INO) ==
[2017-11-02] MEDS ORDERED: SODIUM CHLORIDE 1,000 ML IV SCH (14:00)
[2017-11-02 14:58] VITALS: BMI 39.2
[2017-11-02] MEDS: ASPIRIN CHEWABLE PO SCH (15:29)
[2017-11-02] MEDS ORDERED: NORCO 10-325 PO PRN (16:21)
[2017-11-02] MEDS: NON-FORMULARY MEDICATION (Metformin Hcl [Glucophage] 1,000 MG) PO SCH (17:29)
[2017-11-02] MEDS: DILTIAZEM HCL 60 MG PO SCH (20:44)
[2017-11-02] MEDS ORDERED: NON-FORMULARY MEDICATION (Metformin Hcl [Metformin Hcl Er] 1,000 MG) PO SCH (21:00)
[2017-11-02] MEDS ORDERED: DILTIAZEM HCL 60 MG PO SCH (21:00)
[2017-11-03] MEDS ORDERED: SYNTHROID PO SCH (06:30)
[2017-11-03] MEDS ORDERED: PROTONIX PO SCH ×2 (06:30→09:00)
[2017-11-03] MEDS ORDERED: ASPIRIN EC PO SCH (08:00)
[2017-11-03] MEDS ORDERED: GLUCOTROL PO SCH ×2 (08:00→12:00)
[2017-11-03] MEDS: ASPIRIN CHEWABLE PO SCH (08:21)
[2017-11-03] MEDS: DILTIAZEM HCL 60 MG PO SCH (08:22)
[2017-11-03] MEDS: NON-FORMULARY MEDICATION (Metformin Hcl [Glucophage] 1,000 MG) PO SCH (08:23)
[2017-11-03] MEDS ORDERED: NON-FORMULARY MEDICATION (Simvastatin [Simvastatin] 20 MG) PO SCH (09:00)
[2017-11-03] MEDS ORDERED: NON-FORMULARY MEDICATION (Cyanocobalamin (Vitamin B-12) [B-12] 1,000 MCG) PO SCH (09:00)
[2017-11-03] MEDS ORDERED: NON-FORMULARY MEDICATION (Cholecalciferol (Vitamin D3) [Vitamin D3] 1,000 UNITS) PO SCH (09:00)
[2017-11-03] MEDS ORDERED: DECADRON 4 MG/ML SDV IM STA (09:07)
[2017-11-03] MEDS: DUONEB NEB SCH ×2 (10:13→14:13)
--- NOTE | 2017-11-03 10:39 | DI ---
EXAM: Two views of the chest. History: Cough, short of breath Comparison: Chest radiograph 07/21/2014 Findings: Heart size is normal. Atherosclerotic vascular calcifications. No focal consolidation. No appreciable pleural fluid and no pneumothorax. 1.1 cm linear metallic density seen within the sof t tissues of the right shoulder. No acute osseous abnormalities. Impression: 1. No acute cardiopulmonary process. 2. Metallic foreign body seen within the soft tissues of the right shoulder.
--- NOTE | 2017-11-03 13:35 | STRESSMOD ---
Date of Test:11/03/17 Ordering Physician: DR. HODAN TORRES Occupation:RETIRED Reason for Exam: CHEST PAIN, SOB, CHEST WALL SORENESS Smoking History: NO Height: 62" Weight: 217 LBS Current Medications: SIMVASTATIN, PROTONIX, METFORMIN, LISINOPRIL, SYNTHROID, NORCO, GLIPIZIDE LODINE, DILTIAZEM, FOSAMAX Resting EKG: SINUS RHYTHM Target Heart Rate: 124/146 S-T SEGMENT STAGE MPH/GRADE HEART RATE BPM BLOOD PRESSURE mmhg RHYTHM +/- ELEVATION DEPRESSION SYMPTOMS,COMMENTS At Rest 88 148/60 SR X NONE 1 1.7/0% 2 1.7/5% 3 1.7/10% 4 2.5/12% 5 3.4/14% Immediately After 132 168/80 SR X SHORT OF BREATH Minutes Post Exercise 4:00 90 138/58 SR X SHORT OF BREATH Minutes Post Exercise DURATION OF EXERCISE: 1:49 MAXIMUM HEART RATE REACHED: 132 BPM REASON FOR TERMINATION: SHORT OF BEATH 97% OXYGEN SATURATION WITH EXERCISE ON ROOM AIR INTERPRETATION: 1. TEST NEGATIVE FOR ISCHEMIC ST-T WAVE CHANGES 2. NO CHEST PAIN OR DISCOMFORT 3. FEW PVC'S NOTED--ISOLATED, POST EXERCISE 4. BLOOD PRESSURE RESPONSE: BORDERLINE HYPERTENSION 5. EXERCISE TOLERANCE-LOW NORMAL LEFT VENTRICULAR CONTRACTILITY--RESTING AND POST EXERCISE MTDD
--- NOTE | 2017-11-03 13:40 | ECHO2D ---
Date of Exam: 11/03/17 Ordering Physician: DR. HODAN TORRES Room #: [id number] Reason for Echo: CHEST PAIN, SOB, CHEST WALL SORENESS M-Mode Normal Adult Results LV Dimensions Normal Adult Results AoV Opening excursions >1.6 >1.6 LVEDD-base- 3.5-5.8 4.0 Ao root dimensions 2.0-3.7 3.0 LVESD-base- 3.1-4.6 L. Atrium dimensions 1.9-3.8 4.1 Post. Wall thickness 0.8-1.1 1.0 IV septum (thickness) 0.7-1.2 1.2 Post. Wall excursion 0.72-1.3 NORMAL Septal motion NORMAL Systolic motion R. Ventricular cavity 1.5-2.0 NORMAL LVEF 60% 73% Paradoxical septal wall motion NORMAL 2-D : 2-D M Mode Echocardiogram was performed using apical four chamber and left parasternal long and short axis views. Mitral, tricuspid and aortic valves appear to be normal. Contractility of the left ventricle seems to be normal, so is the cavity size. Enlarged Left atrial cavity size. Aortic root appears to be normal. There is no pericardial effusion. There is no thrombus noted in the left ventricular or left aortic cavity. No mitral valve prolapse noted. M-MODE: MV: NORMAL AV: NORMAL TV: NORMAL PV: CHAMBER SIZE: ENLARGED LEFT ATRIAL CAVITY WALL MOTION: NORMAL PERICARDIUM: NORMAL INTERPRETATION: 1. BORDERLINE LEFT VENTRICULAR HYPERTROPHY 2. BORDERLINE LEFT ATRIAL CAVITY 3. NORMAL LEFT VENTRICULAR CONTRACTILITY 4. NORMAL VALVES MTDD
--- NOTE | 2017-11-03 13:42 | ECHOSTRESS ---
Date of Exam: 11/03/17 Ordering Physician: DR. HODAN TORRES Reason for Echo: CHEST PAIN, SOB, STRESS TEST--NO ISCHEMIA M-Mode Normal Adult Results LV Dimensions Normal Adult Results AoV Opening excursions >1.6 LVEDD-base- 3.5-5.8 Ao root dimensions 2.0-3.7 LVESD-base- 3.1-4.6 L. Atrium dimensions 1.9-3.8 Post. Wall thickness 0.8-1.1 IV septum (thickness) 0.7-1.2 Post. Wall excursion 0.72-1.3 Septal motion Systolic motion R. Ventricular cavity 1.5-2.0 LVEF 60% Paradoxical septal wall motion 2-D: NORMAL LEFT VENTRICULAR CONTRACTILITY--RESTING AND POST EXERCISE M-MODE: MV: AV: TV: PV: CHAMBER SIZE: WALL MOTION: NORMAL LEFT VENTRICULAR CONTRACTILITY--RESTING AND POST EXERCISE PERICARDIUM: INTERPRETATION: 1. NORMAL LEFT VENTRICULAR CONTRACTILITY--RESTING AND POST EXERCISE MTDD
[2017-11-03 15:47] VITALS: BP 138/80; TEMP 83
--- NOTE | 2017-11-07 08:50 | DS ---
DATE OF SERVICE: 11/03/17 FINAL DIAGNOSIS: 1. CHEST PAIN, NONCARDIAC 2. HYPERTENSION 3. COPD 4. DIABETES MELLITUS 5. HYPERLIPIDEMIA 6. HYPOTHYROID 7. FORMER SMOKER, STOPPED 27 YEARS AGO 8. CARPAL TUNNEL RELEASE 9. TKR, LEFT 2009 10. CHOLECYSTECTOMY 11. RIGHT SHOULDER SURGERY DISCHARGE INSTRUCTIONS: Followup appointment with Dr. Saxena at [facility] within 5 to 7 days. MEDICATIONS AT DISCHARGE: Lisinopril/Hydrochlorothiazide Protonix Cardizem Fosamax Aspirin Vitamin D3 Vitamin B12 Glipizide Hydrocodone Levothyroxine Glucophage Simvastatin NEW PRESCRIPTIONS: Prednisone 10 mg take one twice a day for one week. Next dose at supper tonight. DIET INSTRUCTIONS: Cardiac and Healthy ACTIVITY: As much as tolerated. DISEASE SPECIFIC EDUCATION: Chest pain has been discussed. COPD exacerbation and bronchitis have been discussed. HOSPITAL COURSE: This is a 72-year-old female who came to the office complaining that she has been having more midsternal chest pain, shortness of breath, exertional at times , sharp to dull kind of pain. With given history of diabetes and no stress test or echocardiogram done for almost seven years, the patient was admitted for observation. The patient had the stress test and echocardiogram done, which both were negative for acute changes. At that time, the patient was discharged home and explained lifestyle modifications, taking Aspirin and continue the home medications. TIME SPENT: MORE THAN 65 MINUTES MTDD
[2017-11-08] MEDS ORDERED: FOSAMAX PO SCH (06:30)
== END 2017-11-03 16:35 | disposition home or self-care (01) ==
LOC: INTOOBSV 12:35 → MEDSURG A 12:35 → UNDOADMOB 12:35
PROVIDERS: ADMIT Emergency Medicine; ATTEND Emergency Medicine
DX: R07.89 Other chest pain (principal); J44.9 Chronic obstructive pulmonary disease, unspecified; I10 Essential (primary) hypertension; E78.5 Hyperlipidemia, unspecified; E11.9 Type 2 diabetes mellitus without complications; E03.9 Hypothyroidism, unspecified; R06.02 Shortness of breath; M81.0 Age-related osteoporosis without current pathological fracture; Z87.891 Personal history of nicotine dependence; Z79.899 Other long term (current) drug therapy; Z96.652 Presence of left artificial knee joint
CPT/HCPCS: 36415; 80053; 82550; 82962; 84484; 85025; 93005; 93010; 94640

== ENCOUNTER 2018-02-08 09:00 | Outpatient (RCR) | payer OTHER ==
--- NOTE | 2018-02-02 10:08 | RS.OPPTEV2 ---
Date of Note: 02/01/18 Visit #: 1 Date of Evaluation: 02/01/18 Payer Source: MEDICARE Surgery Performed?: No Treatment Diagnosis: balance problem History of Condition/Mechanism of Injury:: pt states she has had balance problems and dizziness for multiple years and MD just decided to order PT. pt states she feels dizzy with changing from sit to supine, as well as rolling to R Prior Level of Function.....Patient was independent with: ADL's, Self Care, Caregiving, Ambulation/Mobility, Community Integration/Access Level of Function: Patient is very active. 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 Treatment Side (optional): N/A *Precautions: n/a Medical History Medical History: Hypertension, Diabetes Surgical History: Knee Replacement, Cholecystectomy Surgical History Comments:: rotator cuff repair, Carpal tunnel release Smoking Status: Former smoker Hx Home Medications: metformin hcl, diltiazem, levothyroxine, simvastatin, lisinopril hctz, glipizide, vit d3, vit B12, aspirin, hydrocodone/apap, alendronate, fosamax Patient's Goals: be stronger and not afraid of falling Functional Outcome Measure Tinetti: 18 (36%) - G Codes & Severity Modifier G Codes & Modifier: mobility, walking and moving around: current CJ. mobility walking and moving around CI Source of G Code score: tinetti balance score Observation - Observation Inspection: pt with dizziness with sit to sup transfers Posture: Forward Head, Rounded Shoulders, Increased Thoracic Kyphosis, Decreased Lumbar Lordosis Handedness: Right Gait - Gait Pattern General Gait Pattern Observation: Decrease Stride Lngth (R), Decrease Stride Lngth (L), Lateral Trunk Lean Gait Comments: gait speed 0.64 consistent with limited community ambulator. pt amb without AD with increased lat sway, decreased step length, flexed posture. pt requires verbal cues for safety to slow cassy. General Range of Motion: BUE and BLE WFL's Muscle Strength: BUE shld flex 4+/5, otherwise 5/5. BLE hip flex 4/5, knee flex/ext 4+/5, ankle DF/PF 4+/5 Palpation Palpation Findings: None/Normal Sensation - Sensation Right Upper Extremity: Intact/Normal Left Upper Extremity: Intact/Normal Right Lower Extremity: Intact/Normal Left Lower Extremity: Intact/Normal Balance - Sitting Balance Static Sitting Balance: Normal Dynamic Sitting Balance: Normal - Standing Balance Static Standing Balance: Good Dynamic Standing Balance: Fair - Comments Balance Assessment Comments: tinetti score consistent with high risk of falls. gait speed 0.64 m/s consistent with limited community ambulator Interventions - Exercise/Activities/Manual Therapy Exercises/Activities: pt performed isometric hip add, resisted hip flex, resisted hip abd with green theraband, standing heel raises. Manual Therapy: NA HOME EXERCISE PROGRAM: pt given written HEP including isometric hip add, resisted hip flex, hip abd with green theraband, standing heel raises. Advised pt to use cane when amb outdoors. - Charges Timed Code Treatment Minutes: 49 Total Treatment Time: 58 Procedures billed for this date of service:: eval med /ex EVALUATION COMPLEXITY LEVEL EVALUATION COMPLEXITY LEVEL: HISTORY: Medium (DM, HTN, balance issues), EXAM OF BODY SYSTEMS: Medium (balance, strength, transfers gait), CLINICAL PRESENTATION : Medium, CLINICAL DECISION MAKING: Medium Assessment Assessment: pt presents with decreased balance, some evidence of vestibular problems such as dizziness when changing from sit to sup. pt also with decreased strength, and decreased safety. Feel pt would benefit from skilled PT for therex for LE strengthening, balance to improve functional mobility as well as decrease fall risk. Patient Education: Home Exercise Program, Education of Plan of Care Rehab Potential: Good Short Term Goals Goal #1: pt independent with initial HEP Goal to be met by: 02/15/18 Goal #2: pt amb into dept with AAD with no LOB with improved posture. Goal to be met by: 02/15/18 Goal #3: pt with improve dyn stand balance as noted by improved tinetti score Goal to be met by: 02/15/18 Goal #4: Improved strength BLE 4 to 4+/5 Goal to be met by: 02/15/18 Check Viewer Goals Goal #1: improved gait speed > 0.8m/s to be consistent with community ambulator Goal to be met by: 03/02/18 Goal #2: pt with improved dyn stand balance as noted by Goal to be met by: 03/02/18 Goal #3: pt with no reports of falls since eval Goal to be met by: 03/02/18 Plan - Treatment to be Provided Procedures: Therapeutic Exercises, Therapeutic Activity, Gait Training, Patient Education Modalities: No Modalities - Treatment Plan Frequency: 2 X week Duration: 4 weeks ORDER # VISITS AND/OR THROUGH DATE: 03/02/18 - Treatment Code (1) Other abnormalities of gait and mobility Code(s): R26.89 - OTHER ABNORMALITIES OF GAIT AND MOBILITY (2) Impairment of balance Code(s): R26.89 - OTHER ABNORMALITIES OF GAIT AND MOBILITY (3) Muscle weakness Code(s): M62.81 - MUSCLE WEAKNESS (GENERALIZED)
--- NOTE | 2018-02-05 12:07 | RS.OPPTDN ---
Subjective Date of Note: 02/05/18 Visit #: 2 Date of Evaluation: 02/01/18 Payer Source: MEDICARE Treatment Diagnosis: balance problem Current Subjective/complaints:: Patient says she has been sick and does not know what she can do and cannot lay down to perform exercises. She says she knows many of her medications cause dizziness, but does not want to tell her MD in fear that he would add another medication. She says she will use a cane in community distances, but also uses the wall, chairs, or rails along the way. She does not have a cane this morning. She indicates most of her dizziness is when she bends down to pick something up or handing clothes on her line. She has to grab the line and follow her hand down to attach the item. *Precautions: n/a Interventions - Exercise/Activities/Manual Therapy Exercises/Activities: Patient unable to lay supine for any exercise due to coughing. She sits at EOB for ball squeezes for hips, hip abd with red tband, LAQ 1#, hip flexion, red tband for scap retraction and horizontal abd, 1# wand for bilateral shoulder flexion, shoulder shrugs all x 10. Trunk strengthening for bal including 1# on R arm and holding ball for diagonals, challenging anterior/posterior sway, x8. Patient stands at railing for postural techniques and education on amb, exercise benefits performed today and other activities we may utilize to assist her in her c/o's. She performs: marching, heel raises, side stepping, looking up/down at railing x 10. Total minutes of Exercise: 38 Manual Therapy: NA HOME EXERCISE PROGRAM: pt given written HEP including isometric hip add, resisted hip flex, hip abd with green theraband, standing heel raises. Advised pt to use cane when amb outdoors. - Charges Timed Code Treatment Minutes: 38 Total Treatment Time: 38 Procedures billed for this date of service:: ex, neuro2 Assessment: Patient not feeling well today related to congestion/coughing. Unable to lay supine for other trunk exercises. She amb to dept without cane appearing slightly unsteady at times (bending over to retrieve umbrella). She is able to perform exercises correctly with with rest periods. L UE has limitation in range and has to use R UE to complete tasks. She has most difficulty with bending over and grabbing something off the floor and with reaching upward quickly, so we will be working on these tasks next session seeing if she is feeling better. Encouraged her to bring and use cane next session. Patient Education: Education of diagnosis, Body/Joint mechanics, Home Exercise Program, Home Safety, Education of Plan of Care Patient demonstrates compliance with HEP?: Yes Short Term Goals Goal #1: pt independent with initial HEP Goal to be met by: 02/15/18 Progress towards Goal:: Progressing Goal #2: pt amb into dept with AAD with no LOB with improved posture. Goal to be met by: 02/15/18 Goal #3: pt with improve dyn stand balance as noted by improved tinetti score Goal to be met by: 02/15/18 Goal #4: Improved strength BLE 4 to 4+/5 Goal to be met by: 02/15/18 Door Core Assembler Goals Goal #1: improved gait speed > 0.8m/s to be consistent with community ambulator Goal to be met by: 03/02/18 Goal #2: pt with improved dyn stand balance as noted by Goal to be met by: 03/02/18 Goal #3: pt with no reports of falls since eval Goal to be met by: 03/02/18 Goal #4: Pt able to return to recreational/work activities without limitation. Goal to be met by: 09/29/16 Progress towards goal: Partially Met Plan PLAN OF CARE EXPIRES ON:: 03/02/18 ORDER # VISITS AND/OR THROUGH DATE: 03/02/18 PLAN: Continue for strengthening exercises to bilateral LE and trunk to aid in bal/gait.
--- NOTE | 2018-02-08 12:05 | RS.OPPTDN ---
Subjective Date of Note: 02/08/18 Visit #: 3 Date of Evaluation: 02/01/18 Payer Source: MEDICARE Treatment Diagnosis: balance problem Current Subjective/complaints:: Patient c/o back pain today. She says it is severe and related to her being up at 1:00 a.m. placing a baby gate up in her home for her puppies. She says she just stood bent over for a few seconds while locking it and felt instant pain and burning to the low back and R side. She says she has already had heat to it this morning, which helped, but is now stirred up a lot. *Precautions: n/a Pain Assessment - Pain Description Pain Location: low back and to the R buttock - Heat/Cryotherapy Treatment: Hot Pack (no charge. Authorized by PT due to c/o's in chair for low back/Rbuttock while performing ex's) Interventions - Exercise/Activities/Manual Therapy Exercises/Activities: She sits in chair while on heat: for ball squeezes for hips, hip abd with red tband, LAQ 1#, hip flexion, red tband for scap retraction and horizontal abd, 2# wand for bilateral shoulder flexion, shoulder shrugs all x 10. Red tband for ham curls 2x10. Trunk strengthening for bal including 1# on R arm and holding ball for diagonals, challenging anterior/ posterior sway, x8. She sits for head turns and up/down with eyes open/closed. Patient uses RW to amb within the dept due to increased back pain. She stands at railing for marching, heel raises, hip abd x 10. Minisquats x 5. Head turns and cervical flex/extension with eyes open and closed holding onto rail x 5. Lean and reach for cones using L, then R UE across body and overhead requiring her to look up/down (this is what usually produces her dizziness). Patient had requested to try stationary bike x 2 mins. Prompts and assistance with getting on and positioning as well as explaining benefits. Patient amb out of dept to car with SBA no AD. Total minutes of Exercise: 54 Manual Therapy: NA HOME EXERCISE PROGRAM: pt given written HEP including isometric hip add, resisted hip flex, hip abd with green theraband, standing heel raises. Advised pt to use cane when amb outdoors. - Charges Timed Code Treatment Minutes: 54 Total Treatment Time: 60 Procedures billed for this date of service:: neuro2, ex2 Assessment: Patient presents with increased pain today to her low back and R SI region following leaning over and placing a baby gate up in her home. She has had only slight improvement with pain following therapy. Moist heat does relieve temporarily. She is able to perform all therex well with only mild muscle fatigue. Some dizziness andposterior lean seen with standing cervical extension with eyes open and more so closed in which she is more apprehensive. CGA given at that point to gain steadiness. Patient should benefit from further therex challenging her balance and vestibular system as well as strengthening for trunk/LEs. Patient Education: Education of diagnosis, Body/Joint mechanics, Home Exercise Program, Home Safety, Education of Plan of Care Patient demonstrates compliance with HEP?: Yes Short Term Goals Goal #1: pt independent with initial HEP Goal to be met by: 02/15/18 Progress towards Goal:: Progressing Goal #2: pt amb into dept with AAD with no LOB with improved posture. Goal to be met by: 02/15/18 Progress towards Goal:: Progressing Goal #3: pt with improve dyn stand balance as noted by improved tinetti score Goal to be met by: 02/15/18 Goal #4: Improved strength BLE 4 to 4+/5 Goal to be met by: 02/15/18 Mcfp Goals Goal #1: improved gait speed > 0.8m/s to be consistent with community ambulator Goal to be met by: 03/02/18 Goal #2: pt with improved dyn stand balance as noted by Goal to be met by: 03/02/18 Goal #3: pt with no reports of falls since eval Goal to be met by: 03/02/18 Goal #4: Pt able to return to recreational/work activities without limitation. Goal to be met by: 09/29/16 Progress towards goal: Partially Met Plan PLAN OF CARE EXPIRES ON:: 03/02/18 ORDER # VISITS AND/OR THROUGH DATE: 03/02/18 PLAN: Continue therex for 3 more weeks.
== END 2018-02-11 23:59 ==
PROVIDERS: ATTEND Nurse Practitioner Family
DX: R26.89 Other abnormalities of gait and mobility (principal)

== ENCOUNTER 2018-02-28 11:00 | Outpatient (RCR) ==
--- NOTE | 2018-02-13 11:01 | RS.OPPTDN ---
Subjective Date of Note: 02/13/18 Visit #: 4 Date of Evaluation: 02/01/18 Payer Source: MEDICARE Treatment Diagnosis: balance problem Current Subjective/complaints:: Patient states she is a little more dizzy today due to just taking a breathing treatment. She says she wont do that prior to therapy again, because of the unsteadiness. She says it still bothers her placing clothes on her line and avoids lifting her head up so that she will not get dizzy or fall. She says she does fine if she just looks straight ahead. States back pain is better today than previous session. *Precautions: n/a Interventions - Exercise/Activities/Manual Therapy Exercises/Activities: She sits in chair: for ball squeezes for hips, hip abd progressed to green tband, LAQ progressed to 1 1/2#, ham curls with green tband , hip flexion 1 1/2#, progressed to green tband for scap retraction and red for horizontal abd, 2# wand for bilateral shoulder flexion, shoulder shrugs all x 10. 1 1/2# cuff on R hand for reaching across midline for ball bilaterally as well as above head and leaning over to challenge balance multiple reps. Trunk strengthening also in chair with resistance for posterior and anterior lean x 5. She sits for head turns and up/down with eyes open/closed. Patient uses SC to amb within the dept due to increased unsteadiness. She stands at railing using therapeutic foam pad for marching, heel raises, minisquats x 10. 2 step ups using bilateral hand rail and then took away 1 step to create a deeper step forward and backward with CGA. Shelf reach using cones at trunk level and above head to challenge posterior sway and maintain bal. Patient stands for head tilts CGA with eyes open and closed. Only partial posterior sway and she is able to correct with placing hands onto shelf to recover. out of dept to car with SBA no AD. Total minutes of Exercise: 45 Manual Therapy: NA HOME EXERCISE PROGRAM: pt given written HEP including isometric hip add, resisted hip flex, hip abd with green theraband, standing heel raises. Advised pt to use cane when amb outdoors. - Charges Timed Code Treatment Minutes: 45 Total Treatment Time: 45 Procedures billed for this date of service:: neuro2, ex1 Assessment: Patient demo increased unsteadiness today and shaky with some UE exercises related to recent nebulizer treatment. She demo unsteadiness still with cervical extension, but is able to regain bal with touching surfaces. She presents using her SC to/from dept and I did adjust the AD for her as it was too low. She was uneasy about performing exercises on altered surface (foam), but did well as she held onto handrail. Patient Education: Body/Joint mechanics, Home Safety Patient demonstrates compliance with HEP?: Yes Short Term Goals Goal #1: pt independent with initial HEP Goal to be met by: 02/15/18 Progress towards Goal:: Progressing Goal #2: pt amb into dept with AAD with no LOB with improved posture. Goal to be met by: 02/15/18 Progress towards Goal:: Progressing Goal #3: pt with improve dyn stand balance as noted by improved tinetti score Goal to be met by: 02/15/18 Goal #4: Improved strength BLE 4 to 4+/5 Goal to be met by: 02/15/18 Mcfp Goals Goal #1: improved gait speed > 0.8m/s to be consistent with community ambulator Goal to be met by: 03/02/18 Goal #2: pt with improved dyn stand balance as noted by Goal to be met by: 03/02/18 Goal #3: pt with no reports of falls since eval Goal to be met by: 03/02/18 Goal #4: Pt able to return to recreational/work activities without limitation. Goal to be met by: 09/29/16 Progress towards goal: Partially Met Plan PLAN OF CARE EXPIRES ON:: 03/02/18 ORDER # VISITS AND/OR THROUGH DATE: 03/02/18 PLAN: Continue for dynamic and bal exercises.
--- NOTE | 2018-02-16 08:51 | RS.OPPTDN ---
Subjective Date of Note: 02/16/18 Visit #: 5 Date of Evaluation: 02/01/18 Payer Source: MEDICARE Treatment Diagnosis: balance problem Current Subjective/complaints:: Patient says she just attended a and it was [place] so she took her cane so that she would not be unsteady in the grass. She says she continues to be dizzy with looking up while performing activities around her home or housework, but can avoid the dizziness by looking straight ahead most times. She admits to feeling stronger in her legs and arms , but does mention the L leg feeling sore today and asks to omit weighted exercise on that side. *Precautions: n/a Pain Assessment - Pain Description Pain Location: L LE generally Interventions - Exercise/Activities/Manual Therapy Exercises/Activities: She sits in chair: for ball squeezes for hips, hip abd green tband for the R leg only, LAQ progressed to 2# for the R, ham curls with green tband, hip flexion 2# for the R, green tband for scap retraction and red for horizontal abd, 2# wand for bilateral shoulder flexion, shoulder shrugs all x 10. Progressed to 2# cuff on R hand for reaching across midline for ball bilaterally as well as above head and leaning over to challenge balance multiple reps. Trunk strengthening also in chair with resistance for posterior and anterior lean x 5 as well as lateral tilt. She sits for head turns and up/down with eyes open/closed. Patient uses SC to amb within the dept due to L LE elevated pain. Shelf reach using cones at trunk level and above head to challenge posterior sway and maintain bal. Patient stands for head tilts CGA with eyes open and closed. Patient actually had no sway with cervical extension today, but did place her R hand partially on shelf. She did not require totally relying on the shelf for stability. Patient performed on stationary bike x 1 1/2 mins forward. Total minutes of Exercise: 40 Manual Therapy: NA HOME EXERCISE PROGRAM: pt given written HEP including isometric hip add, resisted hip flex, hip abd with green theraband, standing heel raises. Advised pt to use cane when amb outdoors. - Charges Timed Code Treatment Minutes: 40 Total Treatment Time: 40 Procedures billed for this date of service:: ex2, neuro1 Assessment: Patient presenting with increased L LE pain. Some therex was altered to accomidate this elevation. She was able to perform all other routine exercises with showing progress with cervical extension and little to no sway. Patient Education: Home Exercise Program, Home Safety Patient demonstrates compliance with HEP?: Yes Short Term Goals Goal #1: pt independent with initial HEP Goal to be met by: 02/15/18 Progress towards Goal:: Progressing Goal #2: pt amb into dept with AAD with no LOB with improved posture. Goal to be met by: 02/15/18 Progress towards Goal:: Progressing Goal #3: pt with improve dyn stand balance as noted by improved tinetti score Goal to be met by: 02/15/18 Progress towards Goal:: Progressing Goal #4: Improved strength BLE 4 to 4+/5 Goal to be met by: 02/15/18 Progress towards Goal:: Progressing Electrical Subcontractor Goals Goal #1: improved gait speed > 0.8m/s to be consistent with community ambulator Goal to be met by: 03/02/18 Goal #2: pt with improved dyn stand balance as noted by Goal to be met by: 03/02/18 Goal #3: pt with no reports of falls since eval Goal to be met by: 03/02/18 Goal #4: Pt able to return to recreational/work activities without limitation. Goal to be met by: 09/29/16 Progress towards goal: Partially Met Plan PLAN OF CARE EXPIRES ON:: 03/02/18 ORDER # VISITS AND/OR THROUGH DATE: 03/02/18 PLAN: Patient to continue with bal and progressive therex to improve gait as well.
--- NOTE | 2018-02-20 15:43 | RS.OPPTDN ---
Subjective Date of Note: 02/20/18 Visit #: 6 Date of Evaluation: 02/01/18 Payer Source: MEDICARE Treatment Diagnosis: balance problem Current Subjective/complaints:: Patient says her sugar was very low this morning and had trouble with walking to her neighbor's mailbox (1/4 mile) which she routinely does. She says she has been jittery this morning as well and may talk to her MD about cutting back on her nebulizer medicine. She says her back is feeling fine and she is steadier this afternoon not needing her cane. She mentions difficulty turning her neck to the the L in buddhism pew to hear someone in the back of her. *Precautions: n/a Interventions - Exercise/Activities/Manual Therapy Exercises/Activities: She sits in chair for: head tilts, turns with eyes opened and then closed x 5, ball squeezes for hips, hip abd green tband, LAQ progressed to 2# for the R, ham curls with green tband, hip flexion 2#, green tband for scap retraction and green for horizontal abd, increased to 3# wand for bilateral shoulder flexion, shoulder shrugs all x 10. Progressed to 3# cuff on R hand for reaching across midline for ball bilaterally as well as above head and leaning over to challenge balance multiple reps. Trunk strengthening also in chair with resistance for posterior and anterior lean x 5. Patient amb around dept independently. Amb straight line with turning head to challenge gait. Patient performed on stationary bike x 5 mins forward and retro. Total minutes of Exercise: 38 Manual Therapy: NA HOME EXERCISE PROGRAM: pt given written HEP including isometric hip add, resisted hip flex, hip abd with green theraband, standing heel raises. Advised pt to use cane when amb outdoors. - Charges Timed Code Treatment Minutes: 38 Total Treatment Time: 38 Procedures billed for this date of service:: ex2, neuro1 Assessment: Patient demo improved steadiness today amb without cane and no LoB with any activity. She is able to josue longer time on bike without c/o's. She continues to avoid turning her head while walking and she is having some difficulty with turning her head to the L while at buddhism, but denies in car. Patient Education: Home Exercise Program, Home Safety Patient demonstrates compliance with HEP?: Yes Short Term Goals Goal #1: pt independent with initial HEP Goal to be met by: 02/15/18 Progress towards Goal:: Progressing Goal #2: pt amb into dept with AAD with no LOB with improved posture. Goal to be met by: 02/15/18 Progress towards Goal:: Progressing Goal #3: pt with improve dyn stand balance as noted by improved tinetti score Goal to be met by: 02/15/18 Progress towards Goal:: Progressing Goal #4: Improved strength BLE 4 to 4+/5 Goal to be met by: 02/15/18 Progress towards Goal:: Progressing Shelter Goals Goal #1: improved gait speed > 0.8m/s to be consistent with community ambulator Goal to be met by: 03/02/18 Goal #2: pt with improved dyn stand balance as noted by Goal to be met by: 03/02/18 Goal #3: pt with no reports of falls since eval Goal to be met by: 03/02/18 Goal #4: Pt able to return to recreational/work activities without limitation. Goal to be met by: 09/29/16 Progress towards goal: Partially Met Plan PLAN OF CARE EXPIRES ON:: 03/02/18 ORDER # VISITS AND/OR THROUGH DATE: 03/02/18 PLAN: Continue BIW for 1 more week.
--- NOTE | 2018-02-28 14:11 | RS.OPPTDN ---
Subjective Date of Note: 02/28/18 Visit #: 7 Number of visits approved by Insurance: 2x4 Date of Evaluation: 02/01/18 Payer Source: MEDICARE Treatment Diagnosis: balance problem Current Subjective/complaints:: Patient says she continues to be dizzy with looking upward while standing or walking, so she does avoid it unless she is able to hold onto something or lean against something. She says she is working on HEP and feels she may be a little stronger in her legs, but is c/o increased pain to the L LE. *Precautions: n/a Pain Assessment - Pain Description Pain Location: L LE Interventions - Exercise/Activities/Manual Therapy Exercises/Activities: She sits in chair for: head tilts, turns with eyes opened and then closed x 5, ball squeezes for hips, hip abd green tband, LAQ progressed to 2 1/2# for the R, ham curls with green tband, hip flexion 2 1/2#, green tband for scap retraction and green for horizontal abd, increased to 3# wand for bilateral shoulder flexion, shoulder shrugs all x 10. Green tband for horizontal abd x 10. Trunk strengthening also in chair with resistance for posterior and anterior lean x 5. Sit to stand 2x5 using arm rests for safety cueing. Patient amb around dept independently. Amb straight line with turning head to challenge gait. Patient performs on stationary bike x 4 mins for/retro with prompts to switch position and assistance for pedal placement. Total minutes of Exercise: 35 Manual Therapy: NA HOME EXERCISE PROGRAM: pt given written HEP including isometric hip add, resisted hip flex, hip abd with green theraband, standing heel raises. Advised pt to use cane when amb outdoors. - Charges Timed Code Treatment Minutes: 35 Total Treatment Time: 35 Procedures billed for this date of service:: ex2 Assessment: Patient intermittently requires SC (mostly community distances). She is usually able to avoid positions (cervical extension) that produce dizziness and has decreased her nebulizer medication to reduce "jitters." She demo no LoB in our dept, but is assisted out and touches nearby cars for increasing bal. She josue progression of therex well and without c/o's. 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 Patient Education: Home Safety, Education of Plan of Care Patient demonstrates compliance with HEP?: Yes Short Term Goals Goal #1: pt independent with initial HEP Goal to be met by: 02/15/18 Progress towards Goal:: Progressing Goal #2: pt amb into dept with AAD with no LOB with improved posture. Goal to be met by: 02/15/18 Progress towards Goal:: Progressing Goal #3: pt with improve dyn stand balance as noted by improved tinetti score Goal to be met by: 02/15/18 Progress towards Goal:: Progressing Goal #4: Improved strength BLE 4 to 4+/5 Goal to be met by: 02/15/18 Progress towards Goal:: Progressing Chcf Goals Goal #1: improved gait speed > 0.8m/s to be consistent with community ambulator Goal to be met by: 03/02/18 Goal #2: pt with improved dyn stand balance as noted by Goal to be met by: 03/02/18 Comments: Will reassess next session Goal #3: pt with no reports of falls since eval Goal to be met by: 03/02/18 Progress towards goal: Progressing Comments: no falls at current Goal #4: Pt able to return to recreational/work activities without limitation. Goal to be met by: 09/29/16 Progress towards goal: Partially Met Plan Dates of Chcf Goals: 03/02/18 Expiration date of current Insurance Approval:: 03/02/18, 2x4 sessions PLAN: Continue x 1 more session
--- NOTE | 2018-03-02 08:40 | RS.OPPTDN ---
Subjective Date of Note: 02/22/18 Visit #: 7 Number of visits approved by Insurance: 2x4 Date of Evaluation: 02/01/18 Payer Source: MEDICARE Treatment Diagnosis: balance problem Current Subjective/complaints:: Mrs. Raya reports increased soreness to the L LE and asks to go a little easier with exercise. Patient says she continues working in her yard and has avoided situations that can bring on dizziness. She says she is able to use her SC prn and with stepping onto curb/steps. She has been performing HeP. Denies dizziness with head turns at home/dept. *Precautions: n/a Interventions - Exercise/Activities/Manual Therapy Exercises/Activities: She sits in chair for: head tilts, turns with eyes opened and then closed x 5, ball squeezes for hips, hip abd green tband, LAQ progressed to 2# for the R, ham curls with green tband, hip flexion 2#, green tband for scap retraction and green for horizontal abd, increased to 3# wand for bilateral shoulder flexion, shoulder shrugs all x 10. Progressed to 3# cuff on R hand for reaching across midline for ball bilaterally as well as above head and leaning over to challenge balance multiple reps. Trunk strengthening also in chair with resistance for posterior and anterior lean x 5. Patient amb around dept independently. Amb straight line with turning head to challenge gait. Patient performed on stationary bike x 5 mins forward and retro. Total minutes of Exercise: 34 Manual Therapy: NA HOME EXERCISE PROGRAM: pt given written HEP including isometric hip add, resisted hip flex, hip abd with green theraband, standing heel raises. Advised pt to use cane when amb outdoors. - Charges Timed Code Treatment Minutes: 34 Total Treatment Time: 34 Procedures billed for this date of service:: ex2 Assessment: Patient experiencing increased soreness to the LLE, so abbreviated therex slightly. Assisted patient to her vehicle due to possibility of her becoming unsteady. Patient Education: Home Exercise Program, Home Safety Patient demonstrates compliance with HEP?: Yes Short Term Goals Goal #1: pt independent with initial HEP Goal to be met by: 02/15/18 Progress towards Goal:: Progressing Goal #2: pt amb into dept with AAD with no LOB with improved posture. Goal to be met by: 02/15/18 Progress towards Goal:: Progressing Goal #3: pt with improve dyn stand balance as noted by improved tinetti score Goal to be met by: 02/15/18 Progress towards Goal:: Progressing Goal #4: Improved strength BLE 4 to 4+/5 Goal to be met by: 02/15/18 Progress towards Goal:: Progressing Railroad Crossing Protection Maintainer Goals Goal #1: improved gait speed > 0.8m/s to be consistent with community ambulator Goal to be met by: 03/02/18 Goal #2: pt with improved dyn stand balance as noted by Goal to be met by: 03/02/18 Goal #3: pt with no reports of falls since eval Goal to be met by: 03/02/18 Goal #4: Pt able to return to recreational/work activities without limitation. Goal to be met by: 09/29/16 Progress towards goal: Partially Met Plan Dates of Railroad Crossing Protection Maintainer Goals: 03/02/18 Expiration date of current Insurance Approval:: 03/02/18 PLAN: Patient to continue x 1 more session per order/dates of LTG
--- NOTE | 2018-03-02 16:11 | RS.OPPTDC ---
Date of Discharge: 02/28/18 Date of Evaluation: 02/01/18 Number of Visits: 8 Treatment Diagnosis: balance problem Current Level of Function: pt improved tinetti, No LOB with amb with head turns and cervical ext. She demonstrates slight improvement with gait speed improved to 0.72meters/sec from 0.64m/s upon eval, pt met all STG and 1 of 3 LTG. pt encouraged to continue safety technique with amb/transfers and HEP. Current Complaints/Gains: pt reports strength is better in UE and LE but dizziness remains. pt states she uses straight cane intermittently and continue with all yardwork and house chores. Functional Outcome Measure Tinetti: 20 - G Codes & Severity Modifier G Codes & Modifier: mobility dc CJ. mobility goal CI Source of G Code score: tinetti balance scale Observation - Observation Posture: Forward Head, Rounded Shoulders, Increased Thoracic Kyphosis, Decreased Lumbar Lordosis Gait - Gait Pattern General Gait Pattern Observation: Narrow Based Gait Interventions - Exercise/Activities/Manual Therapy Exercises/Activities: n/a Manual Therapy: NA HOME EXERCISE PROGRAM: pt given written HEP including isometric hip add, resisted hip flex, hip abd with green theraband, standing heel raises. Advised pt to use cane when amb outdoors. - Charges Timed Code Treatment Minutes: n/a Total Treatment Time: n/a Procedures billed for this date of service:: n/a Assessment Assessment: pt met all STG and of 3 LTG. pt progressing with amb and balance. Patient Education: Home Exercise Program, Education of Plan of Care Rehab Potential: Good Short Term Goals Goal #1: pt independent with initial HEP Goal to be met by: 02/15/18 Progress towards Goal:: Met Goal #2: pt amb into dept with AAD with no LOB with improved posture. Goal to be met by: 02/15/18 Progress towards Goal:: Met Goal #3: pt with improve dyn stand balance as noted by improved tinetti score20/ 28 Goal to be met by: 02/15/18 Progress towards Goal:: Met Goal #4: Improved strength BLE 4 to 4+/5 Goal to be met by: 02/15/18 Progress towards Goal:: Met Fpc Goals Goal #1: improved gait speed > 0.8m/s to be consistent with community ambulator Goal to be met by: 03/02/18 Goal #2: pt with improved dyn stand balance as noted by Goal to be met by: 03/02/18 Goal #3: pt with no reports of falls since eval Goal to be met by: 03/02/18 Progress towards goal: Met Goal #4: Pt able to return to recreational/work activities without limitation. Goal to be met by: 09/29/16 Progress towards goal: Partially Met Plan Reason for Discharge:: Maximum Potential Met
== END 2018-03-14 23:59 ==
PROVIDERS: ATTEND Nurse Practitioner Family
DX: R26.89 Other abnormalities of gait and mobility (principal); M62.81 Muscle weakness (generalized)

== ENCOUNTER 2018-03-23 10:21 | Outpatient (CLI) | payer OTHER | END 2018-03-23 10:22 | disposition home or self-care (01) | LOC: FCC-LAB 10:21 | PROVIDERS: ATTEND Family Medicine | DX: E11.9 Type 2 diabetes mellitus without complications (principal); E03.9 Hypothyroidism, unspecified; E78.5 Hyperlipidemia, unspecified | CPT/HCPCS: 36415; 80053; 80061; 82043; 83037; 84443; 85025 ==

== ENCOUNTER 2018-05-17 16:23 | Outpatient (CLI) ==
--- NOTE | 2018-05-18 08:18 | DI ---
EXAM: Chest two views HISTORY: Chronic obstructive pulmonary disease with acute exacerbation COMPARISON: 11/03/2017 TECHNIQUE: Two views of the chest were performed FINDINGS: The lungs are clear. There is no pleural effusion or pneumothorax. The heart is normal i n size. The mediastinal contour is normal, noting atherosclerosis. Suggestion of an age indetermina te mild compression fracture of a lumbar vertebral body with mild loss of height. IMPRESSION: 1. No acute cardiopulmonary process. 2. Suggestion of an age indeterminate mild compression fracture of a lumbar vertebral body with mild loss of height.
== END 2018-05-17 16:24 | disposition home or self-care (01) ==
LOC: RAD 16:23
PROVIDERS: ATTEND Nurse Practitioner Family
DX: J44.1 Chronic obstructive pulmonary disease with (acute) exacerbation (principal)

== ENCOUNTER 2018-06-18 08:14 | Day surgery (SDC) | payer OTHER ==
[2018-06-18] MEDS ORDERED: LIDOCAINE 1% 20 ML MDV ID STA (09:00)
[2018-06-18 09:07] VITALS: TEMP 97
[2018-06-18] MEDS ORDERED: VERSED ONE (10:30)
[2018-06-18] MEDS ORDERED: DIPRIVAN 20 ML VIAL IVP ONE (10:30)
[2018-06-18 11:34] VITALS: BP 112/77
--- NOTE | 2018-06-19 08:51 | OP ---
PROCEDURE: COLONOSCOPY TO THE CECUM WITH SNARE POLYPECTOMY. ENDOSCOPIST: Ruy BARNES M.D. INDICATION: HISTORY OF ADENOMATOUS POLYPS INSTRUMENT: P[place]-[id number]. MEDICATION: PER ANESTHESIA. PROCEDURE: The patient was positioned for colonoscopy. The digital rectal exam was negative. The colonoscope was inserted through the anus and advanced to the cecum. The cecum was identified using the ileocecal valve and the appendiceal orifice as landmarks. The scope was slowly withdrawn through an adequately prepped colon. The [place] Bowel Prep score equals 9. Polyps removed in the cecum, transverse colon, 40cm, and rectum. All removed using snare cautery. All were less than 1cm in size. Some had typical hyperplastic appearance. The retroflex exam was otherwise normal. Diverticulosis throughout the left colon. Withdraw time 12 minutes and 40 seconds. PLAN: 1. Suggest repeat exam in 3-5 years after review of her pathology CC: Dr. Vinod CASTILLO
== END 2018-06-18 11:30 | disposition home or self-care (01) ==
LOC: SURG 08:14
PROVIDERS: ATTEND Internal Medicine Gastroenterology
DX: Z86.010 Personal history of colon polyps (principal); D12.7 Benign neoplasm of rectosigmoid junction; D12.0 Benign neoplasm of cecum; D12.5 Benign neoplasm of sigmoid colon; D12.3 Benign neoplasm of transverse colon

== ENCOUNTER 2018-08-15 11:31 | Outpatient (CLI) | payer OTHER | END 2018-08-15 11:32 | disposition home or self-care (01) | LOC: RHC-LAB 11:31 | PROVIDERS: ATTEND Nurse Practitioner Family | DX: M25.551 Pain in right hip (principal); M25.552 Pain in left hip; R60.9 Edema, unspecified; E11.9 Type 2 diabetes mellitus without complications; I10 Essential (primary) hypertension; R06.02 Shortness of breath | CPT/HCPCS: 36415; 83036; 83880; 85025 ==

== ENCOUNTER 2018-08-16 09:39 | Outpatient (CLI) ==
--- NOTE | 2018-08-16 11:55 | DI ---
EXAM: Pelvis AP view, bilateral hips AP and lateral views HISTORY: Hip pain. FINDINGS: General bone density appears decreased. There is symmetric bilateral moderate hip osteoar thritis. No fracture or dislocation. Sacroiliac joints have mild arthropathy. Degenerative changes of the lower spine are noted. IMPRESSION: 1. Arthropathy of the hips.
== END 2018-08-16 09:40 | disposition home or self-care (01) ==
LOC: RAD 09:39
PROVIDERS: ATTEND Nurse Practitioner Family
DX: M25.551 Pain in right hip (principal); M25.552 Pain in left hip

== ENCOUNTER 2018-09-11 10:00 | Outpatient (RCR) ==
--- NOTE | 2018-08-22 15:10 | RS.OPPTEV2 ---
Date of Note: 08/21/18 Visit #: 1 Number of visits approved by Insurance: NA Date of Evaluation: 08/21/18 Payer Source: MEDICARE Surgery Performed?: No Treatment Diagnosis: Bilateral hip pain History of Condition/Mechanism of Injury:: Patient reports no injury that she is aware of. States her hips have hurt off and on for several months. States she just works through it. Prior Level of Function.....Patient was independent with: ADL's, Self Care, Caregiving, Ambulation/Mobility, Community Integration/Access Functional Limitations: Sleep, Sitting, Standing, Bending, Squatting, Ambulation , Community Access/Integration Current Subjective/complaints:: States right hip gives her the most problems. States she has pain in the right hip and her legs. States she is using a straight cane for ambulation because of her episodes of dizziness. States she walks with a stick outside at her home. Inside the home she holds onto peguero and furniture. Reports right hip pain more with standing and walking. She cannot lay on the right side very long. Describes her hips and legs bother her at night, due to being unable to get comfortable. She has tried heat or cold to her hip when the pain has been very bad. She takes Aleve 12 hour. States she is very active. She push mows her yard and uses a weedeater. States she has pain while she is performing activities. States on those days, she takes [place]. States she has not fallen since 2013. Treatment Side (optional): Right *Precautions: n/a Medical History Medical History: Hypertension, Diabetes Medical History Comments:: Pt reports Bilateral CTR surgeries, L TKA in 2009, DMII, HTN, SKin CA, GAll bladder removed, 2 C-sections, RTC repair and bicep tenodesis Surgical History: Cholecystectomy Smoking Status: Former smoker Diagnostic Testing/Imaging:: Xray of bilateral hips on 08/16/18. Report states symmetric bilateral moderate hip osteoarthritis. NO fracture of dislocation. Sacroliliac joints have mild arthropathy. Degenerative changes of the lower spine are noted. Hx Home Medications: metformin hcl, diltiazem, levothyroxine, simvastatin, lisinopril hctz, glipizide, vit d3, vit B12, aspirin, hydrocodone/apap, alendronate, fosamax Patient's Goals: Her goal is to get relief of right hip and leg pain. Pain Assessment - Pain Description Pain Location: Right hip pain Pain Description: Sharp, Aching Current Pain Intensity: 6/10 Worst Pain Intensity: 8/10 Functional Outcome Measure LE Functional Scale: 17 (17/80=78.75% impairment) - G Codes & Severity Modifier G Codes & Modifier: NA Source of G Code score: NA Observation - Observation Posture: Forward Head, Rounded Shoulders, Decreased Lumbar Lordosis Gait - Gait Pattern Gait Comments: Patient ambulates with a straight cane. She demonstrates decreased right hip and knee flexion during swing phase. Also demonstrates slight decreased right stance phase. Hip ROM: Bilaterally WFL's - Left Hip Strength Left Hip Flexion: 4+ Good + Left Hip Extension: 4+ Good + Left Hip Abduction: 4+ Good + Left Hip Adduction: 4+ Good + Left Hip External Rotation: 4 Good Left Hip Internal Rotation: 4 Good Comments: Knee 4+/5. - Right Hip Strength Right Hip Flexion: 4 Good Right Hip Extension: 4 Good Right Hip Abduction: 4- Good- Right Hip Adduction: 4+ Good + Right Hip External Rotation: 4 Good Right Hip Internal Rotation: 4 Good Comments: Right quads 4+/5, HS 4/5. Palpation Comments:: Patient reports tenderness to the soft tissue over gluteus medius muscle, and running over the Greater trochanter and IT band on the right. She jumps with reports of pain with palpation to the superior 1/3 of the IT band. Also reports lumbar spine and SI joints are sore with palpation. She demonstrates moderate increased muscle tone in the right lumbar paraspinals and minimal on the left. Sensation - Sensation Right Lower Extremity: Intact/Normal Left Lower Extremity: Intact/Normal Additional Comments: Additional Comments: SLR in supine bilaterally to 50-55 degrees. Only reports discomfort at low back at end range. Demonstrates equal leg lengths in supine. Interventions - Exercise/Activities/Manual Therapy Exercises/Activities: None given today. Manual Therapy: NA HOME EXERCISE PROGRAM: NA - Objective Findings Observations,measurements,etc.: Patient reports dizziness upon standing and other position changes in department. Blood pressure taken while at rest in sitting position: 159/63. Upon immediate standing BP 161/11. After standing for 2-3 mins, patient continued to report dizziness. BP taken again 142/82. - Charges Timed Code Treatment Minutes: 0 mins Total Treatment Time: 58 mins Procedures billed for this date of service:: Medium complexity EVALUATION COMPLEXITY LEVEL EVALUATION COMPLEXITY LEVEL: HISTORY: High (Diabetes, L TKA, Dizziness with position change and ambulation), EXAM OF BODY SYSTEMS: High (ROM, MS, sensation , gait, BP, ), CLINICAL PRESENTATION: Medium, CLINICAL DECISION MAKING: Medium Assessment Assessment: Mr. Raya presents to therapy with a diagnosis of right hip pain. She reports pain with most activitites, especially standing and walking. She utilizes a cane due to having boughts of dizziness. She is very active and hip pain makes it difficult for her to perform tasks around her home, such as mowing her yard. Her Xrays reveal moderate hip osteoarthritis. She demonstrates general weakness at the right hip. She also presents with tenderness along the right hip and ITB. She demonstrates potential to benefit from modalities to the right hip and strengthening exercises to decrease her pain with activities. Patient Education: Education of diagnosis, Body/Joint mechanics, Education of Plan of Care Rehab Potential: Good Short Term Goals Goal #1: Pt independent with initial HEP. Goal to be met by: 09/05/18 Goal #2: Right strength improved to 4+/5 throughout. Goal to be met by: 09/05/18 Goal #3: Right hip and ITB tenderness decreased to minimal. Goal to be met by: 09/05/18 Goal #4: . Emt B Goals Goal #1: Pt knows HEP and to continue ex's to maintain functional level at D/C. Goal to be met by: 10/01/18 Goal #2: Score on LE functional scale improved to 35/80. Goal to be met by: 10/01/18 Goal #3: Pt able to amb. community distances with minimal right hip/LE pain. Goal to be met by: 10/01/18 Goal #4: Pt able to mow her yard with minimal right hip pain. Goal to be met by: 10/01/18 Plan - Treatment to be Provided Procedures: Therapeutic Exercises, Therapeutic Activity, Gait Training, Manual Therapy, Patient Education Modalities: Electrical Stimulation, Ultrasound/Phonophoresis, Class IV Laser, Cryotherapy, Hot Packs - Treatment Plan Frequency: 2-3 X week Duration: 4 weeks Dates of Emt B Goals: 10/01/18 Expiration date of current Insurance Approval:: NA - Treatment Code (1) Hip pain Code(s): M25.559 - PAIN IN UNSPECIFIED HIP Qualifiers: Laterality: right Qualified Code(s): M25.551 - Pain in right hip (2) Hip weakness Code(s): R29.898 - OTH SYMPTOMS AND SIGNS INVOLVING THE MUSCULOSKELETAL SYSTEM Qualifiers: Laterality: right Qualified Code(s): R29.898 - Other symptoms and signs involving the musculoskeletal system
--- NOTE | 2018-08-23 16:41 | RS.OPPTDN ---
Subjective Date of Note: 08/23/18 Visit #: 2 Number of visits approved by Insurance: Reassess at 10th Date of Evaluation: 08/21/18 Payer Source: MEDICARE Treatment Diagnosis: Bilateral hip pain Current Subjective/complaints:: Patient c/o R hip pain and tenderness. She says she does not want to try any activities or exercises for her bal because she has had to already move into many positions making her dizzy. She says she has already push mowed her yard too so she is fatigued as well. *Precautions: n/a - Treatment Modality: Ultrasound Parameters/Method Applied: continuous @ 1.5 w/cm2 x 12 mins tothe R greater trochanter Patient Position: Left Sidelying Interventions - Exercise/Activities/Manual Therapy Exercises/Activities: Patient receives passive ITB stretching, HS, piriformis, and lower trunk rotation stretching to the R x 3. Patient performs pillow squeezes and QS for the R x 10. Patient received education on u/s and exercises performed. Total minutes of Exercise: 18 Manual Therapy: NA HOME EXERCISE PROGRAM: NA - Charges Timed Code Treatment Minutes: 30 Total Treatment Time: 36 Procedures billed for this date of service:: u/s, ex Assessment: Patient presents with mild dizziness mostly with supine to sit. She is able to josue u/s with some tenderness along the greater trochanter, but also admitting relief as well. Therex josue with general mm stretching/fatigue. She should benefit from continued modalities to ease R hip pain and therex to improve flexibility and strength to the R LE. Patient Education: Education of diagnosis, Home Exercise Program, Home Safety, Education of Plan of Care Short Term Goals Goal #1: Pt independent with initial HEP. Goal to be met by: 09/05/18 Goal #2: Right strength improved to 4+/5 throughout. Goal to be met by: 09/05/18 Goal #3: Right hip and ITB tenderness decreased to minimal. Goal to be met by: 09/05/18 Goal #4: . Charge Master Coordinator Goals Goal #1: Pt knows HEP and to continue ex's to maintain functional level at D/C. Goal to be met by: 10/01/18 Goal #2: Score on LE functional scale improved to 35/80. Goal to be met by: 10/01/18 Goal #3: Pt able to amb. community distances with minimal right hip/LE pain. Goal to be met by: 10/01/18 Goal #4: Pt able to mow her yard with minimal right hip pain. Goal to be met by: 10/01/18 Plan Dates of Charge Master Coordinator Goals: 10/01/18 Expiration date of current Insurance Approval:: 10/01/18 PLAN: Continue TIW per POC
--- NOTE | 2018-08-27 16:41 | RS.OPPTDN ---
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 She reports she continues to push mow her yard and care for her 10 dogs. States she has not felt any increase in pain since her last session and she denies any trouble with stretches. *Precautions: n/a - Treatment Modality: Ultrasound Parameters/Method Applied: continuous @ 1.5 w/cm2 x 12 mins to the greater trochanter and along ITband (R) - Heat/Cryotherapy Treatment: Hot Pack (over the R hip and along the ITband x 15 mins sidelying) Interventions - Exercise/Activities/Manual Therapy Exercises/Activities: Patient receives passive ITB stretching, HS, piriformis, and lower trunk rotation stretching to the R x 3. Patient performs pillow squeezes x 5. Patient demo great deal of difficulty with bed mobility for positioning during U/s and then turning over to supine for therex. Total minutes of Exercise: 11 Manual Therapy: NA HOME EXERCISE PROGRAM: NA - Charges Timed Code Treatment Minutes: 23 Total Treatment Time: 38 Procedures billed for this date of service:: hp, u/s, ex Assessment: Patient experiencing difficulty with laying L side for u/s needing to reposition several times as well as when moving to supine for therex. She admits she was not in pain prior to her appt., but is now in more pain due to re -positioning for treatment. Little therex performed due to discomfort. Only gentle stretching performed to the R LE. Patient Education: Education of diagnosis, Body/Joint mechanics, Education of Plan of Care Short Term Goals Goal #1: Pt independent with initial HEP. Goal to be met by: 09/05/18 Goal #2: Right strength improved to 4+/5 throughout. Goal to be met by: 09/05/18 Goal #3: Right hip and ITB tenderness decreased to minimal. Goal to be met by: 09/05/18 Goal #4: . Hhas Goals Goal #1: Pt knows HEP and to continue ex's to maintain functional level at D/C. Goal to be met by: 10/01/18 Goal #2: Score on LE functional scale improved to 35/80. Goal to be met by: 10/01/18 Goal #3: Pt able to amb. community distances with minimal right hip/LE pain. Goal to be met by: 10/01/18 Goal #4: Pt able to mow her yard with minimal right hip pain. Goal to be met by: 10/01/18 Plan Dates of Hhas Goals: 10/01/18 Expiration date of current Insurance Approval:: 10/01/18 PLAN: Patient to continue modalities and therex as josue to the R hip
--- NOTE | 2018-08-29 16:37 | RS.OPPTDN ---
Subjective Date of Note: 08/29/18 Visit #: 4 Number of visits approved by Insurance: Reassess at 10th Date of Evaluation: 08/21/18 Payer Source: MEDICARE Treatment Diagnosis: Bilateral hip pain Current Subjective/complaints:: Patient says, "You killed me. I'm not going to do all that today." She says that it is very hard for her to turn over in our beds and cannot lay on her side or back. Reports she just wants me to stretch her in the chair. 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 *Precautions: n/a - Heat/Cryotherapy Treatment: Cryotherapy (to R low back and hip along the lateral thigh in chair after therex x 20 mins) Interventions - Exercise/Activities/Manual Therapy Exercises/Activities: Patient receives passive stretching in supine: SKTC, HS, Piriformis, Figure 4, lower trunk rotation, ITBand to the R x 4. She performs: QS, pillow squeezes (both x 10), and isometric hip abd x 8. Patient received education on these exercises and their benefits. Explained that I am unable to stretch her sitting in the chair and that I will try to make her as comfortable as possible if she could lay supine to receive stretching. 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 She demo slow gait, shortened stride, and decrease stance on the R LE. She is able to however mow and weedeat without increase in pain. Avoided modalities involving her to lay sidelying and was able to lay supine with a pillow under her bottom (per request) to receive stretching and perform general trunk stability exercises. These were all josue without c/o's and with actual ease. Cryotherapy appears to reduce hip and back pain as well as gait had improved and she admitted possible reduction. She may benefit from continued modification of therex and ending in cryotherapy. Patient Education: Education of diagnosis, Body/Joint mechanics, Home Exercise Program, Education of Plan of Care Short Term Goals Goal #1: Pt independent with initial HEP. Goal to be met by: 09/05/18 Comments:: unsure if patient has initiated Goal #2: Right strength improved to 4+/5 throughout. Goal to be met by: 09/05/18 Goal #3: Right hip and ITB tenderness decreased to minimal. Goal to be met by: 09/05/18 Progress towards Goal:: No Change Goal #4: . Half-Way Goals Goal #1: Pt knows HEP and to continue ex's to maintain functional level at D/C. Goal to be met by: 10/01/18 Goal #2: Score on LE functional scale improved to 35/80. Goal to be met by: 10/01/18 Goal #3: Pt able to amb. community distances with minimal right hip/LE pain. Goal to be met by: 10/01/18 Goal #4: Pt able to mow her yard with minimal right hip pain. Goal to be met by: 10/01/18 Plan Dates of Adjuster Electrical Contacts Goals: 10/01/18 Expiration date of current Insurance Approval:: 10/01/18 PLAN: Continue BIW as josue for therex supine and cryotherapy
--- NOTE | 2018-08-31 15:48 | RS.OPPTDN ---
Subjective Date of Note: 08/31/18 Visit #: 5 Number of visits approved by Insurance: Reassess at 10 Date of Evaluation: 08/21/18 Payer Source: MEDICARE Treatment Diagnosis: Bilateral hip pain Current Subjective/complaints:: Patient says she felt better with using ice after her exercises. She says she does not know how "any of this stuff" is going to help her. States she has been through 5 different mattresses and therapy before and nothing helps. States she will be mowing tomorrow. *Precautions: n/a - Heat/Cryotherapy Treatment: Cryotherapy (cold pack x 15 mins to the R low back and hip in sitting after therex) Interventions - Exercise/Activities/Manual Therapy Exercises/Activities: Patient receives passive stretching in supine bilaterally : SKTC, HS, Piriformis, Figure 4, lower trunk rotation, ITBand to the R x 4. She performs: QS, pillow squeezes (both x 10), and isometric hip abd x 8. Isometric hip flexion x 8. Patient encouraged to perform HEP and use proper body mechanics as able when performing yardwork and other activities around her home. Total minutes of Exercise: 25 Manual Therapy: NA HOME EXERCISE PROGRAM: NA - Charges Timed Code Treatment Minutes: 25 Total Treatment Time: 40 Procedures billed for this date of service:: cp, ex2 Assessment: Patient presents with continued LBP and bilateral hip pain. She has had mild improvement in pain level with stretching first then having cold pack afterwards to the LB and R hip. She is able to josue stretching better today than previous sessions. She remains with difficulty josue sit/supine and supine/sit requiring Min A and pillow under her LB and buttocks with supine exercises. Patient Education: Body/Joint mechanics, Home Exercise Program, Home Safety Short Term Goals Goal #1: Pt independent with initial HEP. Goal to be met by: 09/05/18 Progress towards Goal:: Progressing Comments:: intermittently Goal #2: Right strength improved to 4+/5 throughout. Goal to be met by: 09/05/18 Goal #3: Right hip and ITB tenderness decreased to minimal. Goal to be met by: 09/05/18 Progress towards Goal:: No Change Goal #4: . Alf Goals Goal #1: Pt knows HEP and to continue ex's to maintain functional level at D/C. Goal to be met by: 10/01/18 Goal #2: Score on LE functional scale improved to 35/80. Goal to be met by: 10/01/18 Goal #3: Pt able to amb. community distances with minimal right hip/LE pain. Goal to be met by: 10/01/18 Goal #4: Pt able to mow her yard with minimal right hip pain. Goal to be met by: 10/01/18 Plan Dates of Alf Goals: 10/01/18 Expiration date of current Insurance Approval:: 10/01/18 PLAN: Patient to continue 2-3 x next week to decrease hip pain and improved strength
--- NOTE | 2018-09-05 08:36 | RS.OPPTDN ---
Subjective Date of Note: 09/03/18 Visit #: 6 Number of visits approved by Insurance: na Date of Evaluation: 08/21/18 Payer Source: MEDICARE Treatment Diagnosis: Bilateral hip pain Current Subjective/complaints:: Patient reports hurting after being on the mat table last session. States she would like to sit for treatment, then states she can lay on her stomach. States she feels better following treatment today. *Precautions: n/a Pain Assessment - Pain Description Pain Location: lowback, right glut, right hip Current Pain Intensity: mod to high - Treatment Modality: Electrical Stim Unattended Parameters/Method Applied: [id number] HVGC to 145p.v. with 4 pads to the bilateral lower lumbar paraspinals and distal mid gluteal muscles with CP prior to EX. Patient Position: Prone - Heat/Cryotherapy Treatment: Cryotherapy (with Estim ) Interventions - Exercise/Activities/Manual Therapy Exercises/Activities: Patient asks to perform exercise in sitting due to pain. HS, heel cords, and piriformis stretching. Isometric hip add with willow and green theraband for resisted hip abd. LAQ and alt hip flexion. Total minutes of Exercise: 14mins Manual Therapy: NA HOME EXERCISE PROGRAM: NA - Charges Timed Code Treatment Minutes: 14mins Total Treatment Time: 41mins Procedures billed for this date of service:: CP, Estim unattended, EX Assessment: Patient reports better response to the CP and Estim in prone position with report of reduction in pain. Patient Education: Body/Joint mechanics, Home Exercise Program, Home Safety Patient demonstrates compliance with HEP?: Yes Short Term Goals Goal #1: Pt independent with initial HEP. Goal to be met by: 09/05/18 Progress towards Goal:: Progressing Goal #2: Right strength improved to 4+/5 throughout. Goal to be met by: 09/05/18 Goal #3: Right hip and ITB tenderness decreased to minimal. Goal to be met by: 09/05/18 Progress towards Goal:: No Change Goal #4: . Acquisition Lead Goals Goal #1: Pt knows HEP and to continue ex's to maintain functional level at D/C. Goal to be met by: 10/01/18 Goal #2: Score on LE functional scale improved to 35/80. Goal to be met by: 10/01/18 Goal #3: Pt able to amb. community distances with minimal right hip/LE pain. Goal to be met by: 10/01/18 Goal #4: Pt able to mow her yard with minimal right hip pain. Goal to be met by: 10/01/18 Plan Dates of Halfway Goals: 10/01/18 Expiration date of current Insurance Approval:: 10/01/18 PLAN: Continue modalities and progress with exercise to reduce pain and improve functional ambulation and activitiy level.
--- NOTE | 2018-09-05 16:09 | RS.OPPTDN ---
Subjective Date of Note: 09/05/18 Visit #: 7 Number of visits approved by Insurance: 8-12 Date of Evaluation: 08/21/18 Payer Source: MEDICARE Treatment Diagnosis: Bilateral hip pain Current Subjective/complaints:: Patient says she felt good after her last session. She says she had to mow earlier this week and it also increased her symptoms. She remains with pain at the lower back along the waistline and hips. *Precautions: n/a - Treatment Modality: Electrical Stim Unattended Parameters/Method Applied: hivolt 4 large pads to the superior gluts and lower lumbar paraspinals @ 135-145 pk volts x 20 mins PRIOR to therex. Patient Position: Prone - Heat/Cryotherapy Treatment: Cryotherapy Comments:: with estim Interventions - Exercise/Activities/Manual Therapy Exercises/Activities: Patient performs therex in chair: heel cord stretching bilaterally, ball squeezes, hip abd with green tband, LAQ, hip flexion, DF with green tband. All 2x10 reps bilaterally. HEP review and discussed better body mechanics with her yardwork. Total minutes of Exercise: 13 Manual Therapy: NA HOME EXERCISE PROGRAM: NA - Charges Timed Code Treatment Minutes: 13 Total Treatment Time: 33 Procedures billed for this date of service:: cp, estim (un), ex Assessment: Patient presents with decreased back and hip pain since last session. Patient admits relief with modalities and josue therex in sitting position better. She must perform all yardwork and house chores independently and she is able to take breaks to complete tasks. Patient Education: Body/Joint mechanics, Home Exercise Program, Home Safety Patient demonstrates compliance with HEP?: Yes Short Term Goals Goal #1: Pt independent with initial HEP. Goal to be met by: 09/05/18 Progress towards Goal:: Progressing Goal #2: Right strength improved to 4+/5 throughout. Goal to be met by: 09/05/18 Progress towards Goal:: Progressing Goal #3: Right hip and ITB tenderness decreased to minimal. Goal to be met by: 09/05/18 Progress towards Goal:: Progressing Goal #4: . Disc Pad Grinder Goals Goal #1: Pt knows HEP and to continue ex's to maintain functional level at D/C. Goal to be met by: 10/01/18 Goal #2: Score on LE functional scale improved to 35/80. Goal to be met by: 10/01/18 Goal #3: Pt able to amb. community distances with minimal right hip/LE pain. Goal to be met by: 10/01/18 Goal #4: Pt able to mow her yard with minimal right hip pain. Goal to be met by: 10/01/18 Plan Dates of Disc Pad Grinder Goals: 10/01/18 Expiration date of current Insurance Approval:: 10/01/18 PLAN: Patient to continue BIW for flexibility, reduce pain, and improve LE strength.
--- NOTE | 2018-09-11 11:02 | RS.OPPTDN ---
Subjective Date of Note: 09/11/18 Visit #: 8 Number of visits approved by Insurance: Reassess at 10th Date of Evaluation: 08/21/18 Payer Source: MEDICARE Treatment Diagnosis: Bilateral hip pain Current Subjective/complaints:: Patient says "I have pain all over today." Reports that she weed eated yesterday and c/o L knee pain. States she has to get better in therapy today and does not want me to "work her" because she has to mow as soon as she leaves. States the R hip is not bothering her at all. *Precautions: n/a Pain Assessment - Pain Description Pain Location: lower lumbar and L knee pain - Treatment Modality: Electrical Stim Unattended Parameters/Method Applied: IFC to the lumbar and superior gluts @ 12 ma x 20 mins prior to therex Patient Position: Prone - Heat/Cryotherapy Treatment: Cryotherapy Interventions - Exercise/Activities/Manual Therapy Exercises/Activities: Patient performs therex in chair: heel cord stretching bilaterally, ball squeezes, hip abd with green tband, LAQ 2#, hip flexion 2#, LE diagonals with 2# ea, DF and ham curls with green tband. Sit to stand using chair arms x 5, then with arms crossed at chest x 1. All others 2x10 reps bilaterally. HEP review and discussed better body mechanics with her yardwork. Encouraged her to take breaks with mowing and to wear more supportive shoes, perhaps boots to support her ankles to avoid twisting on [place]. Total minutes of Exercise: 20 Manual Therapy: NA HOME EXERCISE PROGRAM: NA - Charges Timed Code Treatment Minutes: 20 Total Treatment Time: 44 Procedures billed for this date of service:: cp, estim (un), ex Assessment: Patient presents with increased back pain and L knee pain following weedeating yesterday. She plans to mow after session today and does not want to perform extra activities today. She has difficulty with bed mobility, but requests to be prone for treatment. She has mild relief through modalities, but also admits this is very temporary because she has to perform all yardwork independently and reaggravates her pain. We will see her once more for reassessment then discharge. Patient Education: Education of diagnosis, Body/Joint mechanics, Home Exercise Program, Home Safety, Activity Modification, Education of Plan of Care Patient demonstrates compliance with HEP?: Yes (performs in the morning only) Short Term Goals Goal #1: Pt independent with initial HEP. Goal to be met by: 09/05/18 Progress towards Goal:: Progressing Goal #2: Right strength improved to 4+/5 throughout. Goal to be met by: 09/05/18 Progress towards Goal:: Progressing Goal #3: Right hip and ITB tenderness decreased to minimal. Goal to be met by: 09/05/18 Progress towards Goal:: Progressing Goal #4: . E Business Consultant Goals Goal #1: Pt knows HEP and to continue ex's to maintain functional level at D/C. Goal to be met by: 10/01/18 Goal #2: Score on LE functional scale improved to 35/80. Goal to be met by: 10/01/18 Goal #3: Pt able to amb. community distances with minimal right hip/LE pain. Goal to be met by: 10/01/18 Goal #4: Pt able to mow her yard with minimal right hip pain. Goal to be met by: 10/01/18 Plan Dates of Intermediate Goals: 10/01/18 Expiration date of current Insurance Approval:: 10/01/18 PLAN: continue 1 more session
== END 2018-09-11 23:59 ==
PROVIDERS: ATTEND Nurse Practitioner Family
DX: M25.551 Pain in right hip (principal); M25.552 Pain in left hip; R29.898 Other symptoms and signs involving the musculoskeletal system

== ENCOUNTER 2018-09-18 10:00 | Outpatient (RCR) ==
--- NOTE | 2018-09-13 11:55 | RS.OPPTDN ---
Subjective Date of Note: 09/13/18 Visit #: 9 Number of visits approved by Insurance: Reassess at 10 Date of Evaluation: 08/21/18 Payer Source: MEDICARE Treatment Diagnosis: Bilateral hip pain Current Subjective/complaints:: Patient says she is feeling better today. Reports that therapy helps, but she has to perform all tasks at home even heavier activities which cancels out her progress from therapy. She says she knows the mowing bothers her back more, but can't stop doing it. States pain is only at the "hollow part of my back." *Precautions: n/a - Treatment Modality: Electrical Stim Unattended Parameters/Method Applied: IFC 4 large pads to the lower lumbar and superior gluts @ 18-22 ma x 20 mins Patient Position: Prone - Heat/Cryotherapy Treatment: Cryotherapy Interventions - Exercise/Activities/Manual Therapy Exercises/Activities: Patient performs therex in chair: heel cord stretching bilaterally, ball squeezes, hip abd with green tband, LAQ 2#, hip flexion 2#, LE diagonals with 2# ea, DF and ham curls with green tband. HEP review and discussed better body mechanics with her yardwork. Total minutes of Exercise: 18 Manual Therapy: NA HOME EXERCISE PROGRAM: NA - Charges Timed Code Treatment Minutes: 18 Total Treatment Time: 38 Procedures billed for this date of service:: cp, estim (un), ex Assessment: Patient presenting with only mild soreness to the lumbar region. She had increased pain after she mowed 2 days ago, but since her pain has eased. She realizes her pain stems from heavy activity that she must perform, but she is looking into paying someone to help her with mowing. She is able to josue stretching better today and all other resisted therex. She will be reassessed next session and then will plan to discharge. Patient Education: Home Exercise Program Patient demonstrates compliance with HEP?: Yes Short Term Goals Goal #1: Pt independent with initial HEP. Goal to be met by: 09/05/18 Progress towards Goal:: Progressing Goal #2: Right strength improved to 4+/5 throughout. Goal to be met by: 09/05/18 Progress towards Goal:: Progressing Goal #3: Right hip and ITB tenderness decreased to minimal. Goal to be met by: 09/05/18 Progress towards Goal:: Met Goal #4: . Towboat Captain Goals Goal #1: Pt knows HEP and to continue ex's to maintain functional level at D/C. Goal to be met by: 10/01/18 Progress towards goal: Progressing Goal #2: Score on LE functional scale improved to 35/80. Goal to be met by: 10/01/18 Comments: Assess next session Goal #3: Pt able to amb. community distances with minimal right hip/LE pain. Goal to be met by: 10/01/18 Goal #4: Pt able to mow her yard with minimal right hip pain. Goal to be met by: 10/01/18 Progress towards goal: No Change Plan Dates of Jail Goals: 10/01/18 Expiration date of current Insurance Approval:: 10/01/18 PLAN: Patient to continue next session to reassess
--- NOTE | 2018-09-18 16:46 | RS.OPPTDN ---
Subjective Date of Note: 09/18/18 Visit #: 10 Number of visits approved by Insurance: Reassess today Date of Evaluation: 08/21/18 Payer Source: MEDICARE Treatment Diagnosis: Bilateral hip pain Current Subjective/complaints:: Patient says her back pain is not too bad today. Reports she has not mowed or weedeated either lately. She says she has gone to [facility] yesterday to "get my drugs." C/c is L knee pain. This was also addressed at Pain Management. *Precautions: n/a - Treatment Modality: Electrical Stim Unattended Parameters/Method Applied: hivolt 4 large electrodes at 115 pk volts and 175 pk volts to the lower lumbar paraspinals and superior gluts/hips. 20 mins Patient Position: Prone - Heat/Cryotherapy Treatment: Cryotherapy Interventions - Exercise/Activities/Manual Therapy Exercises/Activities: Patient performs therex in chair: heel cord and hamstring stretching bilaterally, ball squeezes, hip abd with green tband, LAQ 2 1/2#, hip flexion 2 1/2#, DF and ham curls with green tband. Assisted patient HEP review and discussed better body mechanics with her yardwork. Total minutes of Exercise: 19 Manual Therapy: NA HOME EXERCISE PROGRAM: NA - Objective Findings Observations,measurements,etc.: LE Functional Scale reveals 13/80 or 84% impairment (EVAL 17/80 or 79% impairment). However, patient states several times nothing has changed from her eval. Admitting she still hurts and is limited due to her L knee and back especially with mowing and weedeating. - Charges Timed Code Treatment Minutes: 19 Total Treatment Time: 39 Procedures billed for this date of service:: cp, estim (un), ex Assessment: Patient admits no significant progress with pain. She C/c of L knee pain and limited yardwork, but she takes pain medication prior to performing and right after to endure the yard chores. She currently does not want anyone else to do it and pushes herself to complete the tasks sometimes in 2 days. Tenderness has decreased to the R hip at this time and is able to perform all therex at home. Progressed green and blue tband given. Patient Education: Education of diagnosis, Body/Joint mechanics, Home Exercise Program, Home Safety, Activity Modification, Education of Plan of Care Short Term Goals Goal #1: Pt independent with initial HEP. Goal to be met by: 09/05/18 Progress towards Goal:: Progressing Goal #2: Right strength improved to 4+/5 throughout. Goal to be met by: 09/05/18 Progress towards Goal:: Met Goal #3: Right hip and ITB tenderness decreased to minimal. Goal to be met by: 09/05/18 Progress towards Goal:: Met Goal #4: . 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 Goal to be met by: 10/01/18 Progress towards goal: Progressing Goal #2: Score on LE functional scale improved to 35/80. Goal to be met by: 10/01/18 Progress towards goal: Progressing Comments: slightly, but verbally admits no change Goal #3: Pt able to amb. community distances with minimal right hip/LE pain. Goal to be met by: 10/01/18 Progress towards goal: No Change Goal #4: Pt able to mow her yard with minimal right hip pain. Goal to be met by: 10/01/18 Progress towards goal: No Change Plan Dates of Correction Goals: 10/01/18 Expiration date of current Insurance Approval:: 10/01/18 PLAN: Discharge
--- NOTE | 2018-10-11 14:55 | RS.OPPTDC ---
Date of Discharge: 09/18/18 Date of Evaluation: 08/21/18 Number of Visits: 10 Treatment Diagnosis: Bilateral hip pain Current Complaints/Gains: Pt reports she will always have pain to her back and hips because she has to perform all her tasks at home herself. States she is not paying anyone to help her so nothing we can do will help her. She reports many activities have gotten worse, such as squatting, steps, and rolling over in bed. Reports only temporary relief with treatment. Functional Outcome Measure LE Functional Scale: 13 (84% impairment) - G Codes & Severity Modifier G Codes & Modifier: NA Source of G Code score: NA Interventions - Exercise/Activities/Manual Therapy Exercises/Activities: NA Manual Therapy: NA HOME EXERCISE PROGRAM: NA - Charges Timed Code Treatment Minutes: NA Total Treatment Time: NA Procedures billed for this date of service:: NA Assessment Assessment: Ms. Raya reports her pain is worse with several activities. She has not demonstrates compliance with her HEP, as she reports the exercises make her hurt worse. She refuses to give up the activities around her home, such as mowing and other activities that aggravate her pain. Short Term Goals Goal #1: Pt independent with initial HEP. Goal to be met by: 09/05/18 Progress towards Goal:: Met (but no consistently performing) Goal #2: Right strength improved to 4+/5 throughout. Goal to be met by: 09/05/18 Progress towards Goal:: Met Goal #3: Right hip and ITB tenderness decreased to minimal. Goal to be met by: 09/05/18 Progress towards Goal:: Met Goal #4: . Prison Goals Goal #1: Pt knows HEP and to continue ex's to maintain functional level at D/C. Goal to be met by: 10/01/18 Progress towards goal: Not Met (Patient does not appear to plan to perform ex's after D/C) Goal #2: Score on LE functional scale improved to 35/80. Goal to be met by: 10/01/18 Progress towards goal: Not Met Goal #3: Pt able to amb. community distances with minimal right hip/LE pain. Goal to be met by: 10/01/18 Progress towards goal: Not Met Goal #4: Pt able to mow her yard with minimal right hip pain. Goal to be met by: 10/01/18 Progress towards goal: Not Met Plan Reason for Discharge:: Maximum Potential Met
== END 2018-10-12 23:59 ==
PROVIDERS: ATTEND Nurse Practitioner Family
DX: M25.551 Pain in right hip (principal); M25.552 Pain in left hip

== ENCOUNTER 2018-09-27 11:58 | Outpatient (CLI) | END 2018-09-27 11:59 | disposition home or self-care (01) | LOC: RHC-LAB 11:58 → FCC-LAB 11:59 | PROVIDERS: ATTEND Nurse Practitioner Family | DX: E11.9 Type 2 diabetes mellitus without complications (principal) | CPT/HCPCS: 36415; 80053; 80061; 82043; 84436; 84443; 84479 ==

== ENCOUNTER 2018-12-28 08:38 | Outpatient (CLI) | END 2018-12-28 08:39 | disposition home or self-care (01) | LOC: RHC-LAB 08:38 → FCC-LAB 08:39 | PROVIDERS: ATTEND Family Medicine | DX: E11.9 Type 2 diabetes mellitus without complications (principal) | CPT/HCPCS: 36415; 83037 ==

== ENCOUNTER 2024-02-06 11:15 | Inpatient (IN) ==
--- NOTE | 2024-02-06 12:12 | ED.PDOC ---
General ED Provider: Dr. EUNICE IYER MD Chief Complaint: Hip Pain/Injury Stated Complaint: Patient with a history of type 2 diabetes, hypertension, ataxia, COPD, lumbar degenerative disc disease associated with chronic low back pain has underwent multiple lumbar injections this month and has persistent low back pain. Patient also complains of having sciatica of the right lower extremity. Denies history of heavy lifting, recent fall or near fall. Denies loss of bowel or bladder function. Time Seen by Provider: 02/06/24 12:05 Mode of Arrival: Walk-In Information Source: Patient Exam Limitations: Clinical condition Primary Care Provider: MARIA RIVERS MD Nursing and Triage Documentation Reviewed and Agree: Yes What is Opioid Naive?: *Opioid Naive implies the patient is not already taking opioids or not chronically receiving opioids on a daily basis. *PRN dosing is not "usually" associated with tolerance. *Patients are at higher risk of over-sedation and aspiration. What is Opioid Tolerant?: *Opioid Tolerance implies less than the expected response to an opioid. *Acquired tolerance is defined by the patient taking 60mg of oral morphine daily (or equianalgesic dose of another opioid) for 1 week or more. *Often associated with chronic pain. *May take more than usual dose to achieve desired pain control. Review of Systems Review Of Systems Constitutional: Reports No symptoms Eyes: Reports No symptoms Ears, Nose, Mouth, Throat: Reports No symptoms Respiratory: Reports No symptoms Cardiac: Reports No symptoms GI: Reports No symptoms : Reports No symptoms Musculoskeletal: Reports Back pain (Chronic low back pain with sciatica right lower extremity) Skin: Reports No symptoms Neurological: Reports No symptoms Endocrine: Reports No symptoms Hematologic/Lymphatic: Reports No symptoms All Other Systems: Reviewed and Negative [facility] Medical History Fracture of coccyx S32.2XXA - Fracture of coccyx, initial encounter for closed fracture (ICD- 10) COVID-19 02/03 U07.1 - COVID-19 (ICD-10) External otitis H60.90 - Unspecified otitis externa, unspecified ear (ICD-10) Bilateral foot pain M79.671 - Pain in right foot (ICD-10) M79.672 - Pain in left foot (ICD-10) Osteoarthritis of right hip M16.11 - Unilateral primary osteoarthritis, right hip (ICD-10) Osteoarthritis of right knee M17.11 - Unilateral primary osteoarthritis, right knee (ICD-10) Hip pain, right M25.551 - Pain in right hip (ICD-10) Hyponatremia E87.1 - Hypo-osmolality and hyponatremia (ICD-10) Weakness of both legs R29.898 - Other symptoms and signs involving the musculoskeletal system (ICD-10) Knee pain, right M25.561 - Pain in right knee (ICD-10) Left hip pain toradol 60 mg IM in clinic today prednisone 20 mg po bid x 1 week-advised may have temp. spike in bs due to this Defer imaging @ this time to pain management. 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 Did not take any treatment. R76.11 - Nonspecific reaction to tuberculin skin test without active tuberculosis (ICD-10) Diabetes mellitus age 48 E11.9 - Type 2 diabetes mellitus without complications (ICD-10) Hip pain M25.559 - PAIN IN UNSPECIFIED HIP (ICD-10) Urinary tract infection N39.0 - URINARY TRACT INFECTION, SITE NOT SPECIFIED (ICD-10) Family History Mother Diabetes, Onset Age: 50 Cancer pancreatic SISTER Diabetes FATHER Cancer prostate Social History Smoking and tobacco status: Former smoker Alcohol intake: never Substance use type: does not use Sarah/orthodox: [place] Special sarah needs: No Agree to transfusion: Yes Adopted: No Caregiver/support person: Yes Foster care: No Housing: house Marital status: W / Lives independently: Yes Number of children: 1 Number of grandchildren: 3 Highest education level completed: some college, no degree Financial difficulty paying for basics: somewhat hard service: No MCC: No Current occupational status: retired Pets and animals: Yes (10 dogs, 4 cats) Leisure activites: other History of recent travel: No Sexually active: No Do you think of yourself as: straight/heterosexual Current gender identity: female Seatbelt use: always Helmet use: No Drives intoxicated or rides with intoxicated route relief driver: No Current diet type/program: regular Well-balanced diet: daily Caffeine: Yes Eating out: 1-3 times/week Reads food labels: seldom or never During the past year weight has: remained stable Water heater temperature set < 120 degrees: Yes Working smoke detector in home: Yes Fire extinguisher in home: Yes Carbon monoxide detector in home: No Firearms in home: No What type of physical activity do you participate in?: walking Physical activity functional status: independent ambulation How many days of moderate to strenuous exercise, like a brisk walk, did you do in the last 7 days: 7 Female Reproductive History Menstrual Hx Hysterectomy: No Hx Tubal Ligation: Yes Physical Exam Physical Exam Appearance: Reports Well-appearing Ill-appearing: None Pain Distress: Moderate Eyes: Reports KATHY, EOMI and Conjunctiva clear ENT: Reports Ears normal and Nose normal Respiratory: Reports Airway patent, Breath sounds clear and Breath sounds equal Cardiovascular: Reports RRR, Pulses normal, No rub and No murmur GI/: Reports Soft, Nontender, No masses, Bowel sounds normal and No Organomegaly Musculoskeletal: Reports Normal strength, No calf tenderness and Limited ROM (There is tenderness over the lumbar vertebral spine from L1-L5 with paraspinal tenderness and right sacroiliac tenderness. There is no CVA tenderness noted.) Skin: Reports Warm Neurological: Reports Sensation intact, Motor intact, Reflexes intact, Cranial nerves intact, Alert and Oriented Psychiatric: Reports Affect appropriate and Mood appropriate Critical Care Note Critical Care Note Total Critical Care Time (mins): 0 Course Course 02/06/24 12:25 02/06/24 12:25 Orders, Labs, Meds: Lab Review 02/06/24 02/06/24 02/06/24 12:25 14:11 14:30 WBC 17.72 H RBC 3.66 L Hgb 11.6 L Hct 35.0 L MCV 95.6 MCH 31.7 H MCHC 33.1 RDW Coeff of Emely 12.7 Plt Count 223 Immature Gran % (Auto) 0.7 Neut % (Auto) 84.9 H Lymph % (Auto) 5.8 L [place] % (Auto) 8.2 Eos % (Auto) 0.1 Baso % (Auto) 0.3 Neut # (Auto) 15.1 H Lymph # (Auto) 1.0 [place] # (Auto) 1.5 Eos # (Auto) 0.0 Baso # (Auto) 0.1 Immature Gran # (Auto) 0.1 Sodium 124.8 L Potassium 4.18 Chloride 90.1 L Carbon Dioxide 21.7 L Anion Gap 17.18 BUN 20.5 H Creatinine 1.06 Estimated GFR (MDRD) 50.00 BUN/Creatinine Ratio 19.33 Glucose 400.5 H Calcium 8.63 Urine Color Yellow Urine Clarity Clear Urine pH 6.0 Ur Specific [place] 1.025 Urine Protein 2+ H Urine Glucose (UA) 3+ H Urine Ketones Negative Urine Blood 1+ H Urine Nitrite Negative Urine Bilirubin Negative Urine Urobilinogen 0.2 Ur Leukocyte Esterase Negative Urine Microscopic RBC 0-2 Ur Squamous Epith Cells 2-5 SARS CoV-2 RNA Rapid DG Negative Orders Category Date Time Status ACCUCHECK (ED) [ED ACCUCHECK ASSESSMENT] .ONCE EMERGENCY 02/06/24 14:21 Active BMP [BASIC METABOLIC PANEL] Stat LAB 02/06/24 12:25 Completed CBC W/ AUTO DIFF Stat LAB 02/06/24 12:25 Completed COVID [SARS COV-2 RNA RAPID DG] Stat LAB 02/06/24 14:30 Completed URINALYSIS C & S IF INDICATED Stat LAB 02/06/24 14:11 Completed Insulin Regular, Human [Humulin R (10Ml)] Meds 02/06/24 12:51 Discontinued 4 unit IVP ONCE STA Morphine Sulfate [Morphine 4 mg/ml Syringe] Meds 02/06/24 12:13 Discontinued 4 mg IM ONCE ONE Promethazine HCl [Phenergan 25 mg/ml Vial] Meds 02/06/24 12:13 Discontinued 12.5 mg IM ONCE ONE Sodium Chloride 0.9% [Sodium Chloride] 500 ml Meds 02/06/24 12:51 Discontinued IV 250 mls/hr CHEST, 1V AP ONLY Stat RADS 02/06/24 15:[address] LUMBAR SPINE W/O CONTRAST Stat RADS 02/06/24 12:[address] PELVIS W/O CONTRAST Stat RADS 02/06/24 12:13 Completed Medications Discontinued Medications Generic Name Dose Route Start Last Admin Trade Name Geovanny PRN Reason Stop Dose Admin Sodium Chloride 500 mls @ 250 mls/hr 02/06/24 12:51 02/06/24 13:20 Sodium Chloride IV 02/06/24 14:50 250 mls/hr .Q2H ONE Administration Insulin Human Regular 4 unit 02/06/24 12:51 02/06/24 13:22 Insulin Regular, Human 100 Unit/Ml (10ml) Vial IVP 02/06/24 12:52 4 unit ONCE STA Administration Morphine Sulfate 4 mg 02/06/24 12:13 02/06/24 13:21 Morphine Sulfate 4 Mg/Ml Syringe IM 02/06/24 12:14 4 mg ONCE ONE Administration Promethazine HCl 12.5 mg 02/06/24 12:13 02/06/24 13:20 Promethazine Inj 25 Mg/Ml IM 02/06/24 12:14 12.5 mg ONCE ONE Administration Vital Signs: Temp Pulse Resp BP Pulse Ox 02/06/24 11:59 97.8 F 113 H 18 194/71 H 96 Discharge Plan Discharge Patient Disposition: PLACED OBSERVATION Discharge Problem: Acute hyperglycemia, Intractable low back pain Bilateral sacral insufficiency fracture Qualifiers: Encounter type: initial encounter Qualified Code(s): M84.48XA - Pathological fracture, other site, initial encounter for fracture Prescriptions: No Action (DME) pen needle, diabetic [BD Ultra-Fine Mini Pen Needle] 31 gauge x 3/16" needle See Rx Instructions .ROUTE .COMPLEX Qty: 100 1RF Dose Instruction: DIRECTED Rx Instructions: DIRECTED (DME) OneTouch Ultra Test Strip See Rx Instructions .ROUTE .COMPLEX Qty: 100 5RF Dose Instruction: TEST DAILY Rx Instructions: TEST DAILY E11.9 DM2 levothyroxine 50 mcg tablet See Rx Instructions .ROUTE .COMPLEX Qty: 90 1RF Dose Instruction: TAKE ONE TABLET DAILY Rx Instructions: TAKE ONE TABLET DAILY meclizine 12.5 mg tablet 12.5 mg PO BID PRN (Reason: dizziness) Qty: 60 2RF diltiazem HCl 60 mg tablet See Rx Instructions .ROUTE .COMPLEX Qty: 180 1RF Dose Instruction: TAKE ONE TABLET EVERY TWELVE HOURS Rx Instructions: TAKE ONE TABLET EVERY TWELVE HOURS furosemide 20 mg tablet See Rx Instructions .ROUTE .COMPLEX Qty: 90 1RF Dose Instruction: TAKE ONE TABLET EVERY MORNING FOR EDEMA Rx Instructions: TAKE ONE TABLET EVERY MORNING FOR EDEMA alendronate 70 mg tablet See Rx Instructions .ROUTE .COMPLEX Qty: 12 1RF Dose Instruction: TAKE ONE TABLET WEEKLY PLEASE DRINK LOTS OF WATER WITH MEDICATION Rx Instructions: TAKE ONE TABLET WEEKLY PLEASE DRINK LOTS OF WATER WITH MEDICATION glipizide 10 mg tablet extended release 24hr See Rx Instructions .ROUTE .COMPLEX Qty: 90 1RF Dose Instruction: TAKE ONE TABLET DAILY Rx Instructions: TAKE ONE TABLET DAILY alprazolam [Xanax] 0.25 mg tablet 0.25 mg PO QDAY PRN (Reason: anxiety) Qty: 90 1RF metformin 1,000 mg tablet See Rx Instructions .ROUTE .COMPLEX Qty: 180 1RF Dose Instruction: TAKE ONE TABLET TWICE DAILY Rx Instructions: TAKE ONE TABLET TWICE DAILY simvastatin 20 mg tablet See Rx Instructions .ROUTE .COMPLEX Qty: 90 3RF Dose Instruction: TAKE ONE TABLET DAILY Rx Instructions: TAKE ONE TABLET DAILY primidone 50 mg tablet 25 mg PO BEDTIME Qty: 15 0RF cyanocobalamin (vitamin B-12) 1,000 MCG tablet 1,000 mcg PO DAILY hydrocodone-acetaminophen [[place]] 1 EACH tablet 1 ea PO TID PRN (Reason: PAIN) cholecalciferol (vitamin D3) [Vitamin D3] 25 mcg (1,000 unit) capsule 1,000 unit PO DAILY Qty: 90 1RF lisinopril 20 mg tablet 20 mg PO DAILY Qty: 30 1RF Did you review [place] [employer] for ALL controlled substances?: Not Applicable ED Provider: EUNICE IYER Condition: Stable Physician Progress Note: History obtained from patient for history of type 2 diabetes hypertension, ataxia, lumbar degenerative disc disease with sciatica of the right lower extremity and osteoarthritis of both hips and knees. Patient complains of increasing pain discomfort lower back the past week. Patient has had multiple steroid injections from the pain clinic over the past 3 weeks. Patient given morphine milligrams/Phenergan 12.5 mg IM Laboratory data CBC and CMP with normal limits of for blood sugar [address] The [address] without IV contrast interpretation per radiologist consistent with a comminuted insufficiency fracture of the sacrum involving the sacral medina bilaterally right greater than left and extending through the midline of the lower sacrum. There is marked demineralization. There is a questionable hairline nondisplaced fracture of the posterior inferior left acetabulum. CT lumbar spine without IV contrast interpretation radiologist consistent with moderate degenerative changes no acute fracture lumbar spine proper. Incidental note of a nondisplaced right sacral medina fracture there are bridging spurs noted moderate diffuse degenerative disc and facet disease most apparent at L3-L4 with broad-based disc bulging. There is moderate bilateral neuroforaminal narrowing at L4-5 and L5-S1 Patient given IV fluids, saline 500 mL at 250 mL/hour, he will regular insulin 4 units IV [id number]-discussed with orthopedic surgeon on-call at [facility] Dr. Sanderson for consult with recommendationis for bedrest, treatment for chronic pain with rehab. States this is a none surgical fracture. Differential diagnosis: 1) comminuted fracture of the sacrum 2) acute on chronic low back pain 3) hyperglycemia Called Dr. Dhruv Rivers at 1600 unable to reach via phone contact Discussed with hospitalist Harman Tirado at 1605 for observation.
[2024-02-06 12:33] LABS: BASOPHILS # (AUTO) 0.1 K/uL (0-0.2); BASOPHILS % (AUTO) 0.3 % (0.0-3.0); EOSINOPHILS % (AUTO) 0.1 % (0.0-7.0); HEMOGLOBIN 11.6 g/dl (12.0-16.0); IMMATURE GRANULOCYTE # (AUTO) 0.1 (0.0-1.0); IMMATURE GRANULOCYTE % (AUTO) 0.7 % (0.0-5.0); LYMPHOCYTES % (AUTO) 5.8 (10.0-50.0); MEAN CORPUSCULAR HEMOGLOBIN 31.7 pg (27.0-31.0); MEAN CORPUSCULAR HGB CONC 33.1 (31.8-35.4); MEAN CORPUSCULAR VOLUME 95.6 fl (81.0-99.0); MONOCYTES # (AUTO) 1.5 K/uL (0.4-2.0); MONOCYTES % (AUTO) 8.2 (0-10); NEUTROPHILS # (AUTO) 15.1 K/ul (2.0-6.9); NEUTROPHILS % (AUTO) 84.9 % (42.2-75.2); PLATELET COUNT 223 10^3/uL (140-440); RDW COEFFICIENT OF VARIATION 12.7 % (11.6-14.8); RED BLOOD COUNT 3.66 10^6/ul (4.20-5.40); WHITE BLOOD COUNT 17.72 K/ul (4.6-10.2)
[2024-02-06 12:48] LABS: BLOOD UREA NITROGEN 20.5 mg/dL (7-17); CALCIUM 8.63 mg/dL (8.4-10.2); CARBON DIOXIDE 21.7 mmol/L (22-30.0); CHLORIDE 90.1 mmol/L (98-107); CREATININE 1.06 mg/dL (0.60-1.30); GLUCOSE 400.5 mg/dL (74-106); POTASSIUM 4.18 mmol/L (3.5-5.1); SODIUM 124.8 mmol/L (134.5-145)
--- NOTE | 2024-02-06 13:04 | CT ---
EXAM: CT OF THE PELVIS WITHOUT CONTRAST HISTORY: Right posterior pelvic pain. COMPARISON: Pelvis radiographs 05/17/2022. CT lumbar spine 02/06/2024 and 10/03/2017. CT pelvis 10/03/2017. TECHNIQUE: Noncontrast CT images of the pelvis were obtained. Axial reconstructions with sagittal a nd coronal reformats were provided. 3-D volume rendered images: Not provided. FINDINGS: Diffuse demineralization. Intervertebral the space narrowing, endplate degenerative change most seymour re at L5/S1. Chronic superior endplate irregularity at L5. Marked bilateral facet hypertrophy with bilateral foraminal narrowing L4/L5 and L5/S1, most severe at L5/S1. Cortical irregularity with scle rosis involving the fifth sacral segment at the vertebral body through the sacrococcygeal junction in keeping with a fracture. There is also a comminuted insufficiency fracture with mild displacement e xtending through the right sacral ala and nondisplaced insufficiency fracture along the left sacral a la. Subtle linear lucency involving the posteroinferior left acetabular rim, best seen on image 68 o f series 4 and image 77 of series 5 is indeterminate though a hairline nondisplaced acetabular fractu re at that level is not excluded. Degenerative spurring at the coccyx. There is soft tissue swellin g posteriorly at the lower sacrum and coccyx without deep soft tissue ulcer or drainable fluid collec tion. No deep soft tissue gas. Marked hypertrophic degenerative change of the pubic symphysis with chondrocalcinosis. Marked degenerative changes of the hips bilaterally more extensive on the right s chrissie. Small hip joint effusions. Chronic sequela of calcific tendonitis/enthesopathy most pronounced along the ischial tuberosity and greater trochanters. No soft tissue mass or free fluid in the pelvis. Vascular calcifications. Colonic diverticulosis wi thout definite evidence of acute diverticulitis. IMPRESSION: Comminuted insufficiency fracture of the sacrum involving the sacral ala bilaterally (right greater t rosado left) and extending through the midline at the lower sacrum. Marked demineralization. Questiona ble hairline nondisplaced fracture of the posteroinferior left acetabulum. No additional fractures i dentified. Correlation with MRI of the bony pelvis could be considered. Moderate to marked degenerative changes as described. Subcutaneous edema posteriorly without drainable fluid collection. Colonic diverticulosis without evidence of acute diverticulitis. All CT scans are performed using dose optimization techniques as appropriate to the performed exam an d include at least one of the following: Automated exposure control, adjustment of the mA and/or kV according t o size, and the use of iterative reconstruction technique.
[2024-02-06] MEDS: SODIUM CHLORIDE 500 ML IV ONE (13:20)
[2024-02-06] MEDS: PHENERGAN 25 MG/ML VIAL IM ONE (13:20)
[2024-02-06] MEDS: MORPHINE 4 MG/ML SYRINGE IM ONE (13:21)
[2024-02-06] MEDS: HUMULIN R (10ML) IVP STA (13:22)
--- NOTE | 2024-02-06 14:05 | CT ---
EXAM: CT LUMBAR SPINE HISTORY: Low back pain, degenerative disc disease TECHNIQUE: CT lumbar spine without contrast. 3-mm axial sections. Coronal and sagittal reformation s. FINDINGS: Bones appear demineralized. There is moderate inferior endplate deformity at L2 which is l ikely related to a Schmorl's node. Otherwise normal vertebral body height and alignment without acut e fracture seen. No spondylolisthesis. Bridging osteophytic spurs. Minimal scoliosis. Moderate di ffuse degenerative disc and facet disease most apparent at L3/L4 where broad-based disc bulging, liga mentum flavum hypertrophy and facet arthropathy lead to moderate central canal stenosis. There is mo derate bilateral neural foraminal narrowing at L4/L5 and L5/S1. Incidental note of a nondisplaced ri ght sacral ala fracture. See also same day CT pelvis report. - - - - - IMPRESSION: 1. Moderate degenerative changes. No acute fracture of the lumbar spine proper. 2. Incidental note of a nondisplaced right sacral ala fracture. - - - - - All CT scans are performed using dose optimization techniques as appropriate to the performed exam an d include at least one of the following: Automated exposure control, adjustment of the mA and/or kV according t o size, and the use of iterative reconstruction technique.
[2024-02-06 14:16] LABS: BILIRUBIN,URINE Negative (NEGATIVE); CLARITY,URINE Clear (CLEAR); COLOR,URINE Yellow (YELLOW); KETONES,URINE Negative (NEGATIVE); LEUKOCYTE ESTERASE ,URINE Negative (NEGATIVE); NITRITE,URINE Negative (NEGATIVE); PROTEIN,URINE 2+ (NEGATIVE); URINE, BLOOD 1+ (NEGATIVE); UROBILINOGEN,URINE 0.2 (0.2)
[2024-02-06 14:22] LABS: GLUCOSE, URINE (UA) 3+ (NEGATIVE)
[2024-02-06 14:23] LABS: URINE RBC, MICROSCOPIC 0-2 (0-2)
[2024-02-06 15:01] LABS: SARS COV-2 RNA RAPID NAAT NEGATIVE (NEGATIVE)
--- NOTE | 2024-02-06 16:18 | DI ---
EXAM: CHEST FRONTAL VIEW HISTORY: Dyspnea COMPARISON: 02/18/2022 IMPRESSION: Mildly prominent heart size. Mild atherosclerotic disease. No acute infiltrates are seen. No vascu lar congestion. There is no consolidation, visible pleural fluid or pneumothorax. Bones reveal no a cute abnormality. - - - - -
[2024-02-06] MEDS ORDERED: ZOFRAN 4 MG/2 ML IVP PRN (16:47)
[2024-02-06] MEDS ORDERED: ANTIVERT PO PRN (16:49)
[2024-02-06 17:50] VITALS: BMI 34.7
[2024-02-06] MEDS: HUMULIN R (10ML) SUBCUT PRN (18:27)
[2024-02-06] MEDS: NORCO 10-325 PO PRN (18:32)
[2024-02-06] MEDS: CARDIZEM PO SCH (20:42)
[2024-02-06] MEDS: MYSOLINE PO SCH (20:42)
[2024-02-06] MEDS: XANAX PO PRN (20:57)
[2024-02-07] MEDS: SYNTHROID PO SCH (05:22)
[2024-02-07] MEDS: LASIX TAB PO SCH (05:22)
[2024-02-07 05:29] LABS: BASOPHILS % (AUTO) 0.1 % (0.0-3.0); EOSINOPHILS # (AUTO) 0.1 K/ul (0.0-0.7); EOSINOPHILS % (AUTO) 0.6 % (0.0-7.0); HEMATOCRIT 33.9 % (37.0-47.0); HEMOGLOBIN 11.2 g/dl (12.0-16.0); IMMATURE GRANULOCYTE # (AUTO) 0.1 (0.0-1.0); IMMATURE GRANULOCYTE % (AUTO) 0.8 % (0.0-5.0); LYMPHOCYTES # (AUTO) 1.5 K/uL (0.60-3.4); LYMPHOCYTES % (AUTO) 12.9 (10.0-50.0); MEAN CORPUSCULAR HEMOGLOBIN 31.2 pg (27.0-31.0); MEAN CORPUSCULAR VOLUME 94.4 fl (81.0-99.0); MONOCYTES # (AUTO) 0.9 K/uL (0.4-2.0); MONOCYTES % (AUTO) 8.1 (0-10); NEUTROPHILS # (AUTO) 8.9 K/ul (2.0-6.9); NEUTROPHILS % (AUTO) 77.5 % (42.2-75.2); PLATELET COUNT 188 10^3/uL (140-440); RDW COEFFICIENT OF VARIATION 12.8 % (11.6-14.8); RED BLOOD COUNT 3.59 10^6/ul (4.20-5.40); WHITE BLOOD COUNT 11.51 K/ul (4.6-10.2)
[2024-02-07 05:42] LABS: ALANINE AMINOTRANSFERASE 14.8 U/L (0-35); ALBUMIN 3.23 g/dL (3.5-5.0); ALKALINE PHOSPHATASE 57.5 U/L (53-141); ASPARTATE AMINO TRANSFERASE 33.3 U/L (14-36); BILIRUBIN,TOTAL 0.54 mg/dL (0.2-1.3); BLOOD UREA NITROGEN 20.3 mg/dL (7-17); CALCIUM 8.5 mg/dL (8.4-10.2); CARBON DIOXIDE 30.4 mmol/L (22-30.0); CHLORIDE 94.3 mmol/L (98-107); CREATININE 0.9 mg/dL (0.60-1.30); GLUCOSE 161.3 mg/dL (74-106); POTASSIUM 4.38 mmol/L (3.5-5.1); TOTAL PROTEIN 5.99 g/dL (6.3-8.2)
[2024-02-07] MEDS: VITAMIN D PO SCH (08:20)
[2024-02-07] MEDS: ZESTRIL PO SCH (08:21)
[2024-02-07] MEDS: ZOCOR PO SCH (08:21)
[2024-02-07] MEDS: MIRALAX PO SCH (08:35)
[2024-02-07] MEDS: COLACE PO SCH (08:36)
[2024-02-07] MEDS: FLEXERIL PO PRN (08:36)
[2024-02-07] MEDS: SODIUM CHLORIDE 1,000 ML IV SCH (08:37)
[2024-02-07] MEDS ORDERED: XANAX PO PRN (09:00)
[2024-02-07] MEDS: LIDODERM 5 % PATCH TP PRN (11:21)
[2024-02-07] MEDS: MORPHINE 2 MG/ML SYRINGE IVP PRN (11:27)
--- NOTE | 2024-02-07 13:22 | PCM ---
Date of Service Date Seen by Provider: 02/07/24 Admit Day/Time Admission Date: 02/06/24 Reason for Admission Chief Complaint: SACRAL FRACTURE; INTRACTABLE LOW BACK PAIN Hospital Provider Hospital Provider: KATHY WOMACK, [facility] [place] Care Physician Primary Care Physician: MARIA RIVERS MD History of Present Illness History of Present Illness: 78-year-old female presented to the ER with low back pain. States that this has been ongoing over the last several months but worsened over the last couple days. Denies any fall or injury. Had been receiving steroid injections by pain management that have been ineffective. Reports bilateral hip pain with spasm like pain shooting down both legs. Patient was found to have bilateral sacral fractures. Patient denies any injuries recently that she is aware of. Patient reports no imaging has been completed for 2-1/2 years while going to pain management. Patient reports pain to be 10 out of 10 with Caroline given. Has been receiving morphine and is currently requesting a muscle relaxer to help with the spasms as well as a lidocaine cream or patch. Patient lives at home by herself and has been completely independent of all ADLs prior to this. Reports major concerns with going home due to requiring moderate assistance with 2 staff members at this time. Case Discussed With Case Discussed With: Patient's case was discussed with the ER Physicians, Dr. Ennis [facility] Medical History Fracture of coccyx S32.2XXA - Fracture of coccyx, initial encounter for closed fracture (ICD- 10) COVID-19 02/03 U07.1 - COVID-19 (ICD-10) External otitis H60.90 - Unspecified otitis externa, unspecified ear (ICD-10) Bilateral foot pain M79.671 - Pain in right foot (ICD-10) M79.672 - Pain in left foot (ICD-10) Osteoarthritis of right hip M16.11 - Unilateral primary osteoarthritis, right hip (ICD-10) Osteoarthritis of right knee M17.11 - Unilateral primary osteoarthritis, right knee (ICD-10) Hip pain, right M25.551 - Pain in right hip (ICD-10) Hyponatremia E87.1 - Hypo-osmolality and hyponatremia (ICD-10) Weakness of both legs R29.898 - Other symptoms and signs involving the musculoskeletal system (ICD-10) Knee pain, right M25.561 - Pain in right knee (ICD-10) Left hip pain toradol 60 mg IM in clinic today prednisone 20 mg po bid x 1 week-advised may have temp. spike in bs due to this Defer imaging @ this time to pain management. 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 Did not take any treatment. 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: [place] Special sarah needs: No Agree to transfusion: Yes Adopted: No Caregiver/support person: Yes Foster care: No Housing: house Marital status: W / Lives independently: Yes Number of children: 1 Number of grandchildren: 3 Highest education level completed: some college, no degree Financial difficulty paying for basics: somewhat hard service: No half-way: No Current occupational status: retired Pets and animals: Yes (10 dogs, 4 cats) Leisure activites: other History of recent travel: No Sexually active: No Do you think of yourself as: straight/heterosexual Current gender identity: female Seatbelt use: always Helmet use: No Drives intoxicated or rides with intoxicated 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 Current diet type/program: regular Well-balanced diet: daily Caffeine: Yes Eating out: 1-3 times/week Reads food labels: seldom or never During the past year weight has: remained stable Water heater temperature set < 120 degrees: Yes Working smoke detector in home: Yes Fire extinguisher in home: Yes Carbon monoxide detector in home: No Firearms in home: No What type of physical activity do you participate in?: walking Physical activity functional status: independent ambulation How many days of moderate to strenuous exercise, like a brisk walk, did you do in the last 7 days: 7 Allergies Allergies Allergy/AdvReac Type Severity Reaction Status Date / Time sulfamethoxazole AdvReac ABD PAIN Verified 02/06/24 17:22 [From Bactrim] trimethoprim [From Bactrim] AdvReac ABD PAINS Verified 02/06/24 17:22 instant potatoes Allergy Severe swelling, Uncoded 02/06/24 17:22 rash PAPER TAPE AdvReac Mild PULLS SKIN Uncoded 02/06/24 17:22 OFF Current Medications Home Medications cyanocobalamin (vitamin B-12) 1,000 mcg tablet 1,000 mcg PO DAILY 12/12/15 [History Confirmed 02/06/24 Last Taken 02/06/24 08:00 1,000 mcg] hydrocodone 10 mg-acetaminophen 325 mg tablet (Caroline) 1 ea PO TID PRN PAIN 12/12/15 [History Confirmed 02/06/24 Last Taken 02/06/24 10:00 1 ea] cholecalciferol (vitamin D3) 25 mcg (1,000 unit) capsule (Vitamin D3) 1,000 unit PO DAILY #90 caps 12/08/20 [Rx Confirmed 02/06/24 Last Taken 02/06/24 08:00 1,000 unit] pen needle, diabetic 31 gauge x 3/16" (BD Ultra-Fine Mini Pen Needle) #100 inserts 03/14/23 [Rx Confirmed 02/06/24 Last Taken Unknown] lisinopril 20 mg tablet 20 mg PO DAILY #30 tabs 03/23/23 [Rx Confirmed 02/06/24 Last Taken 02/06/24 08:00 20 mg] blood sugar diagnostic ([employer] Ultra Test strips) #100 ea 03/27/23 [Rx Confirmed 02/06/24 Last Taken Unknown] levothyroxine 50 mcg tablet See Rx Instructions .Route .COMPLEX #90 tabs 05/17/23 [Rx Confirmed 02/06/24 Last Taken 02/06/24 06:00 50] meclizine 12.5 mg tablet 12.5 mg PO BID PRN dizziness #60 tabs 08/14/23 [Rx Confirmed 02/06/24 Last Taken 02/06/24 08:00 12.5 mg] diltiazem HCl 60 mg tablet See Rx Instructions .Route .COMPLEX #180 tabs 09/11/23 [Rx Confirmed 02/06/24 Last Taken 02/06/24 08:00 60] furosemide 20 mg tablet See Rx Instructions .Route .COMPLEX #90 tabs 09/12/23 [Rx Confirmed 02/06/24 Last Taken 02/06/24 08:00 20] alendronate 70 mg tablet See Rx Instructions .Route .COMPLEX #12 tabs 09/28/23 [Rx Confirmed 02/06/24 Last Taken 01/31/24 06:00 70] glipizide 10 mg tablet, extended release 24 hr See Rx Instructions .Route .COMPLEX #90 tabs 11/02/23 [Rx Confirmed 02/06/24 Last Taken 02/06/24 08:00 10] alprazolam 0.25 mg tablet (Xanax) 0.25 mg PO QDAY PRN anxiety #90 tabs 11/07/23 [Rx Confirmed 02/06/24 Last Taken Unknown] metformin 1,000 mg tablet See Rx Instructions .Route .COMPLEX #180 tabs 12/19/23 [Rx Confirmed 02/06/24 Last Taken 02/06/24 08:00 1,000] simvastatin 20 mg tablet See Rx Instructions .Route .COMPLEX #90 tabs 01/01/24 [Rx Confirmed 02/06/24 Last Taken 02/06/24 08:00 20] primidone 50 mg tablet 25 mg (1/2 x 50 mg) PO BEDTIME #15 tabs 01/29/24 [Rx Confirmed 02/06/24 Last Taken 02/05/24 21:00 25 mg] ipratropium bromide 0.02 % solution for inhalation 1.25 ml inhalation TID PRN shortness of breath or wheezing 02/06/24 [History Confirmed 02/06/24 Last Taken Unknown] Home Acetaminophen (Acetaminophen 325 Mg Tablet) 650 mg PO Q4H PRN PRN Reason: Mild Pain Hydrocodone Bitart/Acetaminophen (Hydrocodone Bit/Acetaminophen 10/325 Mg Tablet) 1 tab PO TID PRN PRN Reason: Pain Last Admin: 02/07/24 08:21 Dose: 1 tab Alprazolam (Alprazolam 0.25 Mg Tablet) 0.25 mg PO DAILY PRN PRN Reason: ANXIETY Last Admin: 02/06/24 20:57 Dose: 0.25 mg Cholecalciferol (Cholecalciferol (Vitamin D3) 1,000 Unit (25 Mcg) Tablet) 1,000 unit PO DAILY TOM Last Admin: 02/07/24 08:20 Dose: 1,000 unit Cyclobenzaprine HCl (Cyclobenzaprine Hcl 10 Mg Tablet) 5 mg PO TID PRN PRN Reason: Spasms Last Admin: 02/07/24 08:36 Dose: 10 mg Diltiazem HCl (Diltiazem Hcl 60 Mg Tablet) 60 mg PO BID [facility] Last Admin: 02/07/24 08:20 Dose: 60 mg Docusate Sodium (Docusate Sodium 100 Mg Capsule) 100 mg PO BID [facility] Last Admin: 02/07/24 08:36 Dose: 100 mg Furosemide (Furosemide 20 Mg Tablet) 20 mg PO QDAC2 [facility] Last Admin: 02/07/24 05:22 Dose: 20 mg Sodium Chloride (Sodium Chloride) 1,000 mls @ 75 mls/hr IV .[id number] [facility] Last Admin: 02/07/24 08:37 Dose: 75 mls/hr Insulin Human Regular (Insulin Regular, Human 100 Unit/Ml (10ml) Vial) 0 unit SUBCUT PRN PRN; Protocol PRN Reason: Hyperglycemia Last Admin: 02/07/24 11:19 Dose: 8 unit Ipratropium Warba (Ipratropium Warba 0.02% Vial.Neb) 1.25 ml NEB TID PRN PRN Reason: shortness of breath Levothyroxine Sodium (Levothyroxine Sodium 50 Mcg Tablet) 50 mcg PO QDAC2 [facility] Last Admin: 02/07/24 05:22 Dose: 50 mcg Lidocaine (Lidocaine 5% Patch) 1 patch TP DAILY PRN PRN Reason: Pain Last Admin: 02/07/24 11:21 Dose: 1 patch Lisinopril (Lisinopril 10 Mg Tablet) 20 mg PO DAILY [facility] Last Admin: 02/07/24 08:21 Dose: 20 mg Meclizine HCl (Meclizine Hcl 25 Mg Tablet) 12.5 mg PO BID PRN PRN Reason: Dizziness Morphine Sulfate (Morphine Sulfate 2 Mg/Ml Syringe) 2 mg IVP Q6H PRN PRN Reason: Pain Last Admin: 02/07/24 11:27 Dose: 2 mg Ondansetron HCl (Ondansetron Hcl/Pf 4 Mg/2 Ml Sdv) 4 mg IVP Q6H PRN PRN Reason: Nausea / Vomiting Polyethylene Glycol (Polyethylene Glycol 17 Gm Powd.Pack) 17 gm PO DAILY [facility] Last Admin: 02/07/24 08:35 Dose: 17 gm Primidone (Primidone 50 Mg Tablet) 25 mg PO BEDTIME [facility] Last Admin: 02/06/24 20:42 Dose: 25 mg Simvastatin (Simvastatin 10 Mg Tablet) 20 mg PO QPM TOM Discontinued Medications Alprazolam (Alprazolam 0.25 Mg Tablet) 0.25 mg PO DAILY PRN PRN Reason: ANXIETY Sodium Chloride (Sodium Chloride) 500 mls @ 250 mls/hr IV .Q2H ONE Stop: 02/06/24 14:50 Last Infusion: 02/06/24 15:20 Dose: Infused Insulin Human Regular (Insulin Regular, Human 100 Unit/Ml (10ml) Vial) 4 unit IVP ONCE STA Stop: 02/06/24 12:52 Last Admin: 02/06/24 13:22 Dose: 4 unit Morphine Sulfate (Morphine Sulfate 4 Mg/Ml Syringe) 4 mg IM ONCE ONE Stop: 02/06/24 12:14 Last Admin: 02/06/24 13:21 Dose: 4 mg Promethazine HCl (Promethazine Inj 25 Mg/Ml) 12.5 mg IM ONCE ONE Stop: 02/06/24 12:14 Last Admin: 02/06/24 13:20 Dose: 12.5 mg Simvastatin (Simvastatin 10 Mg Tablet) 20 mg PO DAILY [facility] Last Admin: 02/07/24 08:21 Dose: 20 mg Opioid Naive vs. Tolerant Does Patient Take Opioids?: Yes Is Patient Opioid Naive?: No What is Opioid Naive?: *Opioid Naive implies the patient is not already taking opioids or not chronically receiving opioids on a daily basis. *PRN dosing is not "usually" associated with tolerance. *Patients are at higher risk of over-sedation and aspiration. Is Patient Opioid Tolerant?: No What is Opioid Tolerant?: *Opioid Tolerance implies less than the expected response to an opioid. *Acquired tolerance is defined by the patient taking 60mg of oral morphine daily (or equianalgesic dose of another opioid) for 1 week or more. *Often associated with chronic pain. *May take more than usual dose to achieve desired pain control. Review of Systems Constitutional: Reports No symptoms Head: Reports Normocephalic Eyes: Reports No symptoms Ears: Reports No symptoms Nose: Reports No symptoms Mouth: Reports No symptoms Throat: Reports No symptoms Cardiovascular: Reports No symptoms Respiratory: Reports No symptoms Gastrointestinal: Reports No symptoms Genitourinary: Reports No Symptoms Musculoskeletal: Reports Back Pain and Other (hip pain bilateral) Endocrine: Reports No symptoms Hematology: Reports No symptoms Immunology: Reports No symptoms Neurological: Reports No symptoms Physical examination Most Recent Vital Signs: Most Recent Vital Signs Temperature 97.6 F 02/07/24 10:00 Temperature Source Oral 02/07/24 10:00 Temperature Source Temporal Artery Scan 02/06/24 11:59 Pulse Rate 110 H 02/07/24 10:00 Respiratory Rate 19 02/07/24 10:00 Blood Pressure 151/67 H 02/07/24 10:00 Blood Pressure Mean 95 02/07/24 10:00 Blood Pressure Left Arm 183/97 02/06/24 17:06 Blood Pressure Location Right Arm 02/07/24 10:00 Blood Pressure Position Supine 02/07/24 10:00 O2 Sat by Pulse Oximetry 90 L 02/07/24 10:00 Oxygen Delivery Method Room Air 02/07/24 10:00 Height 5 ft 2 in 02/06/24 17:06 Weight 86.2 kg 02/06/24 17:06 Telemetry Heart Rate 95 11/03/17 07:00 Appearance: Positive No Apparent Distress and Alert and Oriented x3 Skin: Positive Warm and Good Turgor HEENT: Positive Normocephalic and PERRLA Neck: Positive Supple and Midline Trachea Chest/Lungs: Positive Symmetrical With Equal Breath Sounds, Clear to Auscultation Bilaterally and Good Air Movement all 4 Lung Lr Heart: Positive RRR and Pulses Normal GI/: Positive Soft, Nontender, Bowel Sounds Normal and No Distention Musculoskeletal: Positive Decreased ROM Extremities: Positive Intact Peripheral Pulses and Stable Joints Without Laxity Neurological: Positive Sensation Intact, Motor intact, Alert, Oriented and Other (weakness to bilateral lower extremities) Labs This Visit Labs This Visit: Labs This Visit 02/06/24 02/06/24 02/06/24 12:25 14:11 14:30 WBC 17.72 H RBC 3.66 L Hgb 11.6 L Hct 35.0 L MCV 95.6 MCH 31.7 H MCHC 33.1 RDW Coeff of [place] 12.7 Plt Count 223 Immature Gran % (Auto) 0.7 Neut % (Auto) 84.9 H Lymph % (Auto) 5.8 L Kimble % (Auto) 8.2 Eos % (Auto) 0.1 Baso % (Auto) 0.3 Neut # (Auto) 15.1 H Lymph # (Auto) 1.0 Kimble # (Auto) 1.5 Eos # (Auto) 0.0 Baso # (Auto) 0.1 Immature Gran # (Auto) 0.1 Sodium 124.8 L Potassium 4.18 Chloride 90.1 L Carbon Dioxide 21.7 L Anion Gap 17.18 BUN 20.5 H Creatinine 1.06 Estimated GFR (MDRD) 50.00 BUN/Creatinine Ratio 19.33 Glucose 400.5 H Calcium 8.63 Total Bilirubin AST ALT Alkaline Phosphatase Total Protein Albumin Globulin Albumin/Globulin Ratio Urine Color Yellow Urine Clarity Clear Urine pH 6.0 Ur Specific [place] 1.025 Urine Protein 2+ H Urine Glucose (UA) 3+ H Urine Ketones Negative Urine Blood 1+ H Urine Nitrite Negative Urine Bilirubin Negative Urine Urobilinogen 0.2 Ur Leukocyte Esterase Negative Urine Microscopic RBC 0-2 Ur Squamous Epith Cells 2-5 SARS CoV-2 RNA Rapid DG Negative 02/07/24 05:22 WBC 11.51 H D RBC 3.59 L Hgb 11.2 L Hct 33.9 L MCV 94.4 MCH 31.2 H MCHC 33.0 RDW Coeff of [place] 12.8 Plt Count 188 Immature Gran % (Auto) 0.8 Neut % (Auto) 77.5 H Lymph % (Auto) 12.9 Kimble % (Auto) 8.1 Eos % (Auto) 0.6 Baso % (Auto) 0.1 Neut # (Auto) 8.9 H Lymph # (Auto) 1.5 Kimble # (Auto) 0.9 Eos # (Auto) 0.1 Baso # (Auto) 0.0 Immature Gran # (Auto) 0.1 Sodium 127.0 L Potassium 4.38 Chloride 94.3 L Carbon Dioxide 30.4 H D Anion Gap 6.68 BUN 20.3 H Creatinine 0.90 Estimated GFR (MDRD) 60.00 BUN/Creatinine Ratio 22.55 Glucose 161.3 H D Calcium 8.50 Total Bilirubin 0.54 AST 33.3 ALT 14.8 Alkaline Phosphatase 57.5 Total Protein 5.99 L Albumin 3.23 L Globulin 2.76 Albumin/Globulin Ratio 1.17 Urine Color Urine Clarity Urine pH Ur Specific [place] Urine Protein Urine Glucose (UA) Urine Ketones Urine Blood Urine Nitrite Urine Bilirubin Urine Urobilinogen Ur Leukocyte Esterase Urine Microscopic RBC Ur Squamous Epith Cells SARS CoV-2 RNA Rapid DG Imaging Imaging: EXAM: CT OF THE PELVIS WITHOUT CONTRAST FINDINGS: Diffuse demineralization. Intervertebral the space narrowing, endplate degenerative change most severe at L5/S1. Chronic superior endplate irregularity at L5. Marked bilateral facet hypertrophy with bilateral foraminal narrowing L4/L5 and L5/S1, most severe at L5/S1. Cortical irregularity with sclerosis involving the fifth sacral segment at the vertebral body through the sacrococcygeal junction in keeping with a fracture. There is also a comminuted insufficiency fracture with mild displacement extending through the right sacral ala and nondisplaced insufficiency fracture along the left sacral ala. Subtle linear lucency involving the posteroinferior left acetabular rim, best seen on image 68 of series 4 and image 77 of series 5 is indeterminate though a hairline nondisplaced acetabular fracture at that level is not excluded. Degenerative spurring at the coccyx. There is soft tissue swelling posteriorly at the lower sacrum and coccyx without deep soft tissue ulcer or drainable fluid collection. No deep soft tissue gas. Marked hypertrophic degenerative change of the pubic symphysis with chondrocalcinosis. Marked degenerative changes of the hips bilaterally more extensive on the right side. Small hip joint effusions. Chronic sequela of calcific tendonitis/enthesopathy most pronounced along the ischial tuberosity and greater trochanters. No soft tissue mass or free fluid in the pelvis. Vascular calcifications. Colonic diverticulosis without definite evidence of acute diverticulitis. IMPRESSION: Comminuted insufficiency fracture of the sacrum involving the sacral ala bilaterally (right greater than left) and extending through the midline at the lower sacrum. Marked demineralization. Questionable hairline nondisplaced fracture of the posteroinferior left acetabulum. No additional fractures identified. Correlation with MRI of the bony pelvis could be considered. Moderate to marked degenerative changes as described. Subcutaneous edema posteriorly without drainable fluid collection. Colonic diverticulosis without evidence of acute diverticulitis. EXAM: CT LUMBAR SPINE FINDINGS: Bones appear demineralized. There is moderate inferior endplate deformity at L2 which is likely related to a Schmorl's node. Otherwise normal vertebral body height and alignment without acute fracture seen. No spondylolisthesis. Bridging osteophytic spurs. Minimal scoliosis. Moderate diffuse degenerative disc and facet disease most apparent at L3/L4 where broad-based disc bulging, ligamentum flavum hypertrophy and facet arthropathy lead to moderate central canal stenosis. There is moderate bilateral neural foraminal narrowing at L4/L5 and L5/S1. Incidental note of a nondisplaced right sacral ala fracture. See also same day CT pelvis report. - - - - - IMPRESSION: 1. Moderate degenerative changes. No acute fracture of the lumbar spine proper. 2. Incidental note of a nondisplaced right sacral ala fracture. Review Statement Review Statement: I have independently reviewed and interpreted the labs/EKGs/imaging that were ordered by the ER provider. I have reviewed all outside records that are available currently in our EMR including imaging/notes/labs from previous visits. Plan Plan: 1. Intractable Pain in setting of Bilateral Sacral Fracture - continue prev. prescribed norco, morphine 2 mg Q6H prn, added flexeril for spasms prn, lidocaine patch daily prn, ortho consulted in ER - nonsurgical, pt/ot consult 2. Leukocytosis - likely due to recent steroid injections, no s/sx of infection, UA and chest x-ray negative 3. Hyponatremia - mild, likely due to lasix, hold lasix, IV fluids x 24 hours, repeat bmp 2000. 4. DM2 - chronic, accuchecks qid with ssi, hold oral agents, ADA diet 5. Hypertension - chronic, continue home medications DVT Prophylaxis: Eliquis Time Spent: Greater than 80 minutes spent with patient, 50% of the time spent with this patient was devoted to counseling and coordination of care. [facility]in minutes spent discussing advance care planning. Disposition: Admit to: Med/Surg Observation DNI, CPR only Discussed Plan of Care with Dr. Kena Rivers. Medications Medication Orders: Medications Ordered Category Date Time Status Acetaminophen [Tylenol] Meds 02/06/24 16:47 Active 650 mg PO Q4H PRN Alprazolam [Xanax] Meds 02/06/24 20:50 Active 0.25 mg PO DAILY PRN Cholecalciferol (Vitamin D3) [Vitamin D] Meds 02/07/24 09:00 Active 1,000 unit PO DAILY Cyclobenzaprine HCl [Flexeril] Meds 02/07/24 08:22 Active 5 mg PO TID PRN Diltiazem HCl [Cardizem] Meds 02/06/24 21:00 Active 60 mg PO BID Docusate Sodium [Colace] Meds 02/07/24 09:00 Active 100 mg PO BID Furosemide [Lasix Tab] Meds 02/07/24 06:00 Hold 20 mg PO QDAC2 Hydrocodone Bit/Acetaminophen [Caroline 10-325] Meds 02/06/24 16:49 Active 1 tab PO TID PRN Insulin Regular, Human [Humulin R (10Ml)] Meds 02/06/24 16:49 Active See Protocol SUBCUT PRN PRN Ipratropium Warba 0.02% Neb [Atrovent 0.02% Neb] Meds 02/07/24 10:50 Active 1.25 ml NEB TID PRN Levothyroxine Sodium [Synthroid] Meds 02/07/24 06:00 Active 50 mcg PO QDAC2 Lidocaine Patch [Lidoderm 5 % Patch] Meds 02/07/24 10:49 Active 1 patch TP DAILY PRN Lisinopril [Zestril] Meds 02/07/24 09:00 Active 20 mg PO DAILY Meclizine HCl [Antivert] Meds 02/06/24 16:49 Active 12.5 mg PO BID PRN Morphine Sulfate [Morphine 2 mg/ml Syringe] Meds 02/06/24 16:47 Active 2 mg IVP Q6H PRN Ondansetron HCl/Pf [Zofran 4 mg/2 ml] Meds 02/06/24 16:47 Active 4 mg IVP Q6H PRN Polyethylene Glycol 3350 [Miralax] Meds 02/07/24 09:00 Active 17 gm PO DAILY Primidone [Mysoline] Meds 02/06/24 21:00 Active 25 mg PO BEDTIME Simvastatin [Zocor] Meds 02/08/24 17:00 Active 20 mg PO QPM Sodium Chloride 0.9% [Sodium Chloride] 1,000 ml Meds 02/07/24 08:30 Active IV 75 mls/hr
[2024-02-07] MEDS: NORCO 10-325 PO PRN (15:47)
--- NOTE | 2024-02-07 16:19 | RS.PTINEVL ---
Subjective Patient information Date of Evaluation: 02/07/24 Date of Arrival on Unit: 02/06/24 Admitted From:: Home (observation) Diagnosis: acute hyperglycemia, B sacral insufficency fractures Usual Living Arrangement: Alone Living Arrangement Comments: home with small dog Home Environment: House, Stairs (few) and Rail Medical History: Hypertension, COPD, Diabetes, Arthritis and Cancer Medical History Comments:: lumbar DDD, GERD, CKD, LATEX ALLERGY?: No Surgical History Comments:: R shoulder arthroscopy. Medications: see chart Subjective Information/ Patient Comments:: pt states she did not fall at home and does not know why she started hurting so much worse. States that she had gotten steroid shots per pain management. Level of function Abilities prior to this admission: prior to a few days ago pt was independent with ADL's, ambulation with cane, independent taking care of her home. pt states she has been crawling at home and using bedside commode and rwx since pain became so severe. Current Level of Function: Dependent Current Equipment Used at Home: rwx, cane Pain Assessement Location R lumbar/sacral area : Description: Burning, Tightness, Radiating, Sharp, Aching and Acute Intensity: 10 Radiation Location: pain into R hip and LE Pain Behavior: Crying, Guarding, Grasping Site, Rubbing Site, Facial Grimacing and Screaming Pain Aggravating Factors: Changing Position and Sitting Pain Alleviating Factors: Ice and Medication Effects of Pain: pt unable to tolerate sitting at side of bed > 30 seconds due to pain. Interventions Objective Patient Orientation: Person, Place, Time and Situation Current Interventions: IV's and Telemetry Observation: dressing to RUE Range of Motion ROM Right Upper Extremity AROM: WFL's Left Upper Extremity AROM: WFL's Right Lower Extremity AROM: Moderate limitation (R hip abduction /adduction, flex limited due to pain.) Left Lower Extremity AROM: WFL's Muscle Strength Muscle Strength Right Upper Extremity: Mild Weakness (grossly 4-/5) Left Upper Extremity: Mild Weakness (grossly 4-/5) Right Lower Extremity: Moderate Weakness (hip flex 3-/5, knee flex/ext atleast 3/5 ankle DF/PF atleast 3/5 not MMT due to pain) Left Lower Extremity: Mild Weakness (grossly 4-/5) Sensation Sensation Right Upper Extremity: Intact/Normal Left Upper Extremity: Intact/Normal Right Lower Extremity: Impaired (radicular pain into RLE) Left Lower Extremity: Impaired (occasional radicular pain LLE ) Palpation Palpation Findings: Tenderness (R lumbar/sacral area, R hip) and Muscle Guarding Balance Sitting Balance and Reactions Static Sitting Balance: Poor Dynamic Sitting Balance: Zero Comments Balance Assessment Comments: pt unable to tolerate standing. Functional Mobility Bed Mobility Rolling R/L: Max Assist and 1 person assist Scooting: Max Assist and 2 person assist Supine to Sit: Max Assist and 2 person assist Sit to Supine: Max Assist and 2 person assist Comments:: First attempt to sit pt unable. pt then transferred sup to sidelying to sit (log roll) with max assist. pt sat at side of bed screaming out in pain. pt unable to sit > 30 seconds due to severe pain. pt crying and apologizing for not being able to do better. Safety Awareness Safety Awareness: Fair LIUDMILA INDEX SCORE: n/a Treatment time Time with patient Length of Evaluation: 21 Total treatment time: 8 Patient Education Education Patient Education: Activity Modification and Education of Plan of Care Teaching Recipient: Patient Teaching Methods: Discussion Comments: discussion regarding POC Assessment Assessment Problem List:: Decreased level of function, Requires training/education, Decreased safety/Risk of falls, Weakness and Pain limits previous level of function Rehab Potential: Fair Further Therapy Indicated?: Yes Candidate for Swing Bed for Therapy Services?: Feel pt may require long term care social worker care due to severe pain may limit progress until controlled. Evaluation Complexity: HISTORY: Medium, EXAM OF BODY SYSTEMS: Medium, CLINICAL PRESENTATION: Medium and CLINICAL DECISION MAKING: Medium Patient's Goal(s): Be able to go back to my home and take care of myself. Short Term Goals GOAL #1: Rolling w mod x 1 Goal to be met by: 02/10/24 GOAL #2: Transfer sup to/from sidelying to/from sit mod x 2 Goal to be met by: 02/10/24 GOAL #3: Transfer sit to/from stand mod x 2 Goal to be met by: 02/10/24 GOAL #4: pt transfer bed to chair with rwx with mod x 2 Goal to be met by: 02/10/24 GOAL #5: pt able to sit at side of bed unsupported x 1 min Goal to be met by: 02/10/24 Broadband Technician Goals GOAL #1: Transfer sup to/from sidelying to/from sit to/from stand mod x 1 Goal to be met by: 02/14/24 GOAL #2: pt amb 10ft with rwx with mod x 1 Goal to be met by: 02/14/24 GOAL #3: pt perform rolling and scooting in bed with min x 1 Goal to be met by: 02/14/24 Plan Plan of Care: Therapeutic EX and Therapeutic Activity Other:: gait training when appropriate Frequency of Treatment: 1-2 X day, as tolerated Duration of Treatment: 1 Week Anticipated Discharge Destination: undetermined Treatment Diagnosis (ICD 10 Codes): B sacral fractures M54.16 lumbar pain with radiculopathy weakness M62.81 impaired balance R 26.81 gait difficulty R 26.2 Has the Physician been added for Co-signature?: Yes
[2024-02-08 05:34] LABS: BASOPHILS % (AUTO) 0.2 % (0.0-3.0); EOSINOPHILS # (AUTO) 0.1 K/ul (0.0-0.7); EOSINOPHILS % (AUTO) 0.9 % (0.0-7.0); HEMATOCRIT 37.4 % (37.0-47.0); HEMOGLOBIN 12.1 g/dl (12.0-16.0); IMMATURE GRANULOCYTE # (AUTO) 0.1 (0.0-1.0); IMMATURE GRANULOCYTE % (AUTO) 0.7 % (0.0-5.0); LYMPHOCYTES # (AUTO) 1.3 K/uL (0.60-3.4); LYMPHOCYTES % (AUTO) 11.5 (10.0-50.0); MEAN CORPUSCULAR HEMOGLOBIN 31.1 pg (27.0-31.0); MEAN CORPUSCULAR HGB CONC 32.4 (31.8-35.4); MEAN CORPUSCULAR VOLUME 96.1 fl (81.0-99.0); MONOCYTES # (AUTO) 0.9 K/uL (0.4-2.0); MONOCYTES % (AUTO) 7.5 (0-10); NEUTROPHILS # (AUTO) 9.2 K/ul (2.0-6.9); NEUTROPHILS % (AUTO) 79.2 % (42.2-75.2); PLATELET COUNT 201 10^3/uL (140-440); RED BLOOD COUNT 3.89 10^6/ul (4.20-5.40); WHITE BLOOD COUNT 11.54 K/ul (4.6-10.2)
[2024-02-08 05:47] LABS: ALANINE AMINOTRANSFERASE 15.4 U/L (0-35); ALBUMIN 3.43 g/dL (3.5-5.0); ALKALINE PHOSPHATASE 67.4 U/L (53-141); ASPARTATE AMINO TRANSFERASE 21.1 U/L (14-36); BILIRUBIN,TOTAL 0.44 mg/dL (0.2-1.3); BLOOD UREA NITROGEN 21.8 mg/dL (7-17); CALCIUM 8.27 mg/dL (8.4-10.2); CARBON DIOXIDE 28.2 mmol/L (22-30.0); CHLORIDE 95.3 mmol/L (98-107); CREATININE 0.92 mg/dL (0.60-1.30); GLUCOSE 169.8 mg/dL (74-106); POTASSIUM 4.48 mmol/L (3.5-5.1); SODIUM 129.1 mmol/L (134.5-145); TOTAL PROTEIN 6.43 g/dL (6.3-8.2)
[2024-02-08] MEDS: ATROVENT 0.02% NEB NEB PRN (10:57)
--- NOTE | 2024-02-08 11:34 | PCM.PROG ---
Date/Time Seen Date Seen by Provider: 02/08/24 Time Seen by Provider: 08:50 Provider Provider: KATHY WOMACK, [facility] Chief Complaint Chief Complaint: SACRAL FRACTURE; INTRACTABLE LOW BACK PAIN Subjective Subjective: Pain improving with adjustment of pain medication regimen. Discussed discharge plans. Patient lives at home alone. Unable to ambulate without max assist x 2 at this time. Determined that appropriate plan at this time will be SNF placement for rehab. Requesting [facility]. Requested provider to call son today to update Objective Appearance: Positive No Apparent Distress and Alert and Oriented x3 Chest/Lungs: Positive Symmetrical With Equal Breath Sounds, Clear to Auscultation Bilaterally and Good Air Movement all 4 Lung Lr Heart: Positive RRR and Pulses Normal GI/: Positive Soft, Nontender, Bowel Sounds Normal and No Distention Musculoskeletal: Positive Not Examined Neurological: Positive Sensation Intact, Motor intact, Alert and Oriented Vital Signs Vital Signs: Vital Signs: Last 24 Hours 02/07/24 12:00 02/07/24 13:00 02/07/24 13:34 Temperature 97.6 F Temperature Source Temporal Artery Scan Pulse Rate 106 H Respiratory Rate 17 Blood Pressure 151/80 H Blood Pressure Mean 103 Blood Pressure Location Right Arm Blood Pressure Position Supine O2 Sat by Pulse Oximetry 92 L Oxygen Delivery Method Room Air Room Air Room Air Oxygen Flow Rate Height Weight 02/07/24 14:00 02/07/24 15:00 02/07/24 16:00 Temperature Temperature Source Pulse Rate Respiratory Rate Blood Pressure Blood Pressure Mean Blood Pressure Location Blood Pressure Position O2 Sat by Pulse Oximetry Oxygen Delivery Method Room Air Room Air Room Air Oxygen Flow Rate Height Weight 02/07/24 17:00 02/07/24 18:00 02/07/24 18:00 Temperature 97.7 F Temperature Source Skin Pulse Rate 103 H Respiratory Rate 18 Blood Pressure 137/78 Blood Pressure Mean 97 Blood Pressure Location Right Arm Blood Pressure Position Supine O2 Sat by Pulse Oximetry 95 Oxygen Delivery Method Room Air Room Air Room Air Oxygen Flow Rate Height Weight 02/07/24 19:00 02/07/24 20:00 02/07/24 20:00 Temperature Temperature Source Pulse Rate Respiratory Rate 20 Blood Pressure Blood Pressure Mean Blood Pressure Location Blood Pressure Position O2 Sat by Pulse Oximetry Oxygen Delivery Method Room Air Room Air Room Air Oxygen Flow Rate Height Weight 02/07/24 21:00 02/07/24 21:20 02/07/24 22:00 Temperature 97.1 F L Temperature Source Temporal Artery Scan Pulse Rate 106 H Respiratory Rate 18 Blood Pressure 129/60 Blood Pressure Mean 83 Blood Pressure Location Right Arm Blood Pressure Position Supine O2 Sat by Pulse Oximetry 93 L Oxygen Delivery Method Room Air Room Air Room Air Oxygen Flow Rate Height Weight 02/07/24 23:00 02/08/24 00:00 02/08/24 01:00 Temperature Temperature Source Pulse Rate Respiratory Rate Blood Pressure Blood Pressure Mean Blood Pressure Location Blood Pressure Position O2 Sat by Pulse Oximetry Oxygen Delivery Method Room Air Room Air Room Air Oxygen Flow Rate Height Weight 02/08/24 02:00 02/08/24 02:00 02/08/24 03:00 Temperature 97.3 F L Temperature Source Oral Pulse Rate 81 Respiratory Rate 16 Blood Pressure 165/79 H Blood Pressure Mean 107 Blood Pressure Location Right Arm Blood Pressure Position Supine O2 Sat by Pulse Oximetry 96 Oxygen Delivery Method Room Air Room Air Room Air Oxygen Flow Rate Height Weight 02/08/24 04:00 02/08/24 05:00 02/08/24 05:23 Temperature 97.7 F Temperature Source Temporal Artery Scan Pulse Rate 102 H Respiratory Rate 18 Blood Pressure 179/91 H Blood Pressure Mean 120 Blood Pressure Location Right Arm Blood Pressure Position Supine O2 Sat by Pulse Oximetry 96 Oxygen Delivery Method Room Air Room Air Room Air Oxygen Flow Rate Height Weight 02/08/24 06:00 02/08/24 07:00 02/08/24 07:45 Temperature Temperature Source Pulse Rate Respiratory Rate Blood Pressure Blood Pressure Mean Blood Pressure Location Blood Pressure Position O2 Sat by Pulse Oximetry Oxygen Delivery Method Room Air Room Air Room Air Oxygen Flow Rate Height Weight 02/08/24 08:00 02/08/24 09:00 02/08/24 09:30 Temperature Temperature Source Pulse Rate Respiratory Rate Blood Pressure Blood Pressure Mean Blood Pressure Location Blood Pressure Position O2 Sat by Pulse Oximetry Oxygen Delivery Method Room Air Room Air Oxygen Flow Rate Height 5 ft 2 in Weight 86.2 kg 02/08/24 10:00 02/08/24 10:00 02/08/24 10:51 Temperature 97.6 F Temperature Source Temporal Artery Scan Pulse Rate 107 H Respiratory Rate 17 Blood Pressure 123/84 Blood Pressure Mean 97 Blood Pressure Location Right Arm Blood Pressure Position Supine O2 Sat by Pulse Oximetry 90 L Oxygen Delivery Method Room Air Room Air Nasal Cannula Oxygen Flow Rate 2 Height Weight Lab Results Lab Results: Lab Results: Last 24 Hours 02/08/24 05:16 WBC 11.54 H RBC 3.89 L Hgb 12.1 Hct 37.4 MCV 96.1 MCH 31.1 H MCHC 32.4 RDW Coeff of Emely 13.0 Plt Count 201 Immature Gran % (Auto) 0.7 Neut % (Auto) 79.2 H Lymph % (Auto) 11.5 [place] % (Auto) 7.5 Eos % (Auto) 0.9 Baso % (Auto) 0.2 Neut # (Auto) 9.2 H Lymph # (Auto) 1.3 [place] # (Auto) 0.9 Eos # (Auto) 0.1 Baso # (Auto) 0.0 Immature Gran # (Auto) 0.1 Sodium 129.1 L Potassium 4.48 Chloride 95.3 L Carbon Dioxide 28.2 Anion Gap 10.08 BUN 21.8 H Creatinine 0.92 Estimated GFR (MDRD) 59.00 BUN/Creatinine Ratio 23.69 Glucose 169.8 H Calcium 8.27 L Total Bilirubin 0.44 AST 21.1 ALT 15.4 Alkaline Phosphatase 67.4 Total Protein 6.43 Albumin 3.43 L Globulin 3.00 Albumin/Globulin Ratio 1.14 Additional Comments Additional Comments: I have independently reviewed and interpreted the labs/EKGs/imaging ordered during this hospital stay. I have reviewed outside records that are available in our EMR that pertain to medical stay including imaging/notes/labs from previous visits. Active Medications Active Medications: Medications Generic Name Dose Route Start Last Admin Trade Name Freq PRN Reason Stop Dose Admin Acetaminophen 650 mg 02/06/24 16:47 Acetaminophen 325 Mg Tablet PO Q4H PRN Mild Pain Hydrocodone Bitart/Acetaminophen 1 tab 02/07/24 15:35 02/08/24 11:30 Hydrocodone Bit/Acetaminophen 10/325 Mg Tablet PO 1 tab Q4H PRN Administration Pain Alprazolam 0.25 mg 02/06/24 20:50 02/07/24 20:16 Alprazolam 0.25 Mg Tablet PO 0.25 mg DAILY PRN Administration ANXIETY Cholecalciferol 1,000 unit 02/07/24 09:00 02/08/24 08:00 Cholecalciferol (Vitamin D3) 1,000 Unit (25 Mcg) Tablet PO 1,000 unit DAILY TOM Administration Cyclobenzaprine HCl 5 mg 02/07/24 08:22 02/07/24 15:47 Cyclobenzaprine Hcl 10 Mg Tablet PO 5 mg TID PRN Administration Spasms Diltiazem HCl 60 mg 02/06/24 21:00 02/08/24 08:00 Diltiazem Hcl 60 Mg Tablet PO 60 mg BID TOM Administration Docusate Sodium 100 mg 02/07/24 09:00 02/08/24 08:00 Docusate Sodium 100 Mg Capsule PO 100 mg BID TOM Administration Furosemide 20 mg 02/07/24 06:00 02/07/24 05:22 Furosemide 20 Mg Tablet PO 20 mg QDAC2 TOM Administration Sodium Chloride 1,000 mls @ 75 mls/hr 02/07/24 08:30 02/08/24 10:29 Sodium Chloride IV 75 mls/hr .[id number] TOM Administration Insulin Human Regular 0 unit 02/06/24 16:49 02/07/24 20:29 Insulin Regular, Human 100 Unit/Ml (10ml) Vial SUBCUT 10 unit PRN PRN Administration Hyperglycemia Protocol Ipratropium [employer] 1.25 ml 02/07/24 10:50 02/08/24 10:57 Ipratropium [employer] 0.02% Vial.Neb NEB 1.25 ml TID PRN Administration shortness of breath Levothyroxine Sodium 50 mcg 02/07/24 06:00 02/08/24 05:22 Levothyroxine Sodium 50 Mcg Tablet PO 50 mcg QDAC2 TOM Administration Lidocaine 1 patch 02/07/24 10:49 02/07/24 11:21 Lidocaine 5% Patch TP 1 patch DAILY PRN Administration Pain Lisinopril 20 mg 02/07/24 09:00 02/08/24 08:00 Lisinopril 10 Mg Tablet PO 20 mg DAILY TOM Administration Meclizine HCl 12.5 mg 02/06/24 16:49 Meclizine Hcl 25 Mg Tablet PO BID PRN Dizziness Morphine Sulfate 2 mg 02/06/24 16:47 02/07/24 11:27 Morphine Sulfate 2 Mg/Ml Syringe IVP 2 mg Q6H PRN Administration Pain Ondansetron HCl 4 mg 02/06/24 16:47 Ondansetron Hcl/Pf 4 Mg/2 Ml Sdv IVP Q6H PRN Nausea / Vomiting Polyethylene Glycol 17 gm 02/07/24 09:00 02/08/24 08:00 Polyethylene Glycol 17 Gm Powd.Pack PO 17 gm DAILY TOM Administration Primidone 25 mg 02/06/24 21:00 02/07/24 20:15 Primidone 50 Mg Tablet PO 25 mg BEDTIME TOM Administration Simvastatin 20 mg 02/08/24 17:00 Simvastatin 10 Mg Tablet PO QPM TOM Plan Plan: 1. Intractable Pain in setting of Bilateral Sacral Fracture - Unchanges, morphine 2mg Q4H prn, norco increased to Q4H prn, flexeril tid prn lidocaine patch daily prn, ortho consulted in ER - nonsurgical, pt/ot consult 2. Leukocytosis - likely due to recent steroid injections, no s/sx of infection, UA and chest x-ray negative 3. Hyponatremia - mild, improving, stop fluids, restart lasix 4. DM2 - chronic, accuchecks qid with ssi, hold oral agents, ADA diet 5. Hypertension - chronic, continue home medications DVT Prophylaxis: Maria Gis Admit to med/surg inpatient, awaiting insurance approval for SNF placement, unsafe discharge home due to inability to perform ADLs independently. Review Statement Review Statement: I have personally discussed and reviewed the patient's visit/currently labs/imaging/decision making with Dr. Rivers, my supervising attending. Greater that 50 minutes spent with patient, 50% of the time spent with this patient was devoted to counseling and coordination of care.
[2024-02-08] MEDS: ZOCOR PO SCH (16:34)
[2024-02-08] MEDS: SODIUM CHLORIDE PO SCH (21:20)
[2024-02-09 04:53] LABS: BASOPHILS % (AUTO) 0.2 % (0.0-3.0); EOSINOPHILS # (AUTO) 0.2 K/ul (0.0-0.7); EOSINOPHILS % (AUTO) 1.9 % (0.0-7.0); HEMATOCRIT 35.2 % (37.0-47.0); HEMOGLOBIN 11.2 g/dl (12.0-16.0); IMMATURE GRANULOCYTE # (AUTO) 0.1 (0.0-1.0); IMMATURE GRANULOCYTE % (AUTO) 0.6 % (0.0-5.0); LYMPHOCYTES # (AUTO) 1.4 K/uL (0.60-3.4); LYMPHOCYTES % (AUTO) 15.3 (10.0-50.0); MEAN CORPUSCULAR HGB CONC 31.8 (31.8-35.4); MEAN CORPUSCULAR VOLUME 97.5 fl (81.0-99.0); MONOCYTES # (AUTO) 0.9 K/uL (0.4-2.0); MONOCYTES % (AUTO) 9.5 (0-10); NEUTROPHILS # (AUTO) 6.7 K/ul (2.0-6.9); NEUTROPHILS % (AUTO) 72.5 % (42.2-75.2); PLATELET COUNT 209 10^3/uL (140-440); RDW COEFFICIENT OF VARIATION 12.9 % (11.6-14.8); RED BLOOD COUNT 3.61 10^6/ul (4.20-5.40)
[2024-02-09 05:06] LABS: ALANINE AMINOTRANSFERASE 14.4 U/L (0-35); ALBUMIN 3.28 g/dL (3.5-5.0); ALKALINE PHOSPHATASE 62.8 U/L (53-141); ASPARTATE AMINO TRANSFERASE 18.8 U/L (14-36); BILIRUBIN,TOTAL 0.35 mg/dL (0.2-1.3); BLOOD UREA NITROGEN 20.4 mg/dL (7-17); CALCIUM 8.46 mg/dL (8.4-10.2); CARBON DIOXIDE 31.1 mmol/L (22-30.0); CHLORIDE 95.1 mmol/L (98-107); CREATININE 0.94 mg/dL (0.60-1.30); GLUCOSE 147.4 mg/dL (74-106); POTASSIUM 4.52 mmol/L (3.5-5.1); SODIUM 131.8 mmol/L (134.5-145); TOTAL PROTEIN 6.2 g/dL (6.3-8.2)
[2024-02-09 06:13] LABS: SERUM OSMOLALITY 271 mOsmol/kg (280-301)
--- NOTE | 2024-02-09 09:55 | PCM.PROG ---
Date/Time Seen Date Seen by Provider: 02/09/24 Time Seen by Provider: 09:00 Provider Provider: KATHY WOMACK, [facility] Chief Complaint Chief Complaint: SACRAL FRACTURE; INTRACTABLE LOW BACK PAIN Subjective Subjective: Reports better pain control at this time. Developed sob yesterday. Requires breathing treatments at home prn. O2 sat was 88% and began to required 2L. Weaned down to 1L this am and is feeling some better better. Objective Appearance: Positive No Apparent Distress and Alert and Oriented x3 Chest/Lungs: Positive Symmetrical With Equal Breath Sounds and Wheezes Heart: Positive RRR and Pulses Normal GI/: Positive Soft, Nontender, Bowel Sounds Normal and No Distention Musculoskeletal: Positive Not Examined Neurological: Positive Sensation Intact, Motor intact, Alert and Oriented Vital Signs Vital Signs: Vital Signs: Last 24 Hours 02/08/24 10:00 02/08/24 10:00 02/08/24 10:51 Temperature 97.6 F Temperature Source Temporal Artery Scan Pulse Rate 107 H Respiratory Rate 17 Blood Pressure 123/84 Blood Pressure Mean 97 Blood Pressure Location Right Arm Blood Pressure Position Supine O2 Sat by Pulse Oximetry 90 L Oxygen Delivery Method Room Air Room Air Nasal Cannula Oxygen Flow Rate 2 02/08/24 14:00 02/08/24 18:00 02/08/24 20:00 Temperature 97.6 F 97.6 F Temperature Source Temporal Artery Scan Temporal Artery Scan Pulse Rate 99 112 H Respiratory Rate 17 21 H Blood Pressure 169/83 H 192/78 H Blood Pressure Mean 111 116 Blood Pressure Location Left Arm Left Arm Blood Pressure Position Supine Supine O2 Sat by Pulse Oximetry 96 97 Oxygen Delivery Method Nasal Cannula Nasal Cannula Room Air Oxygen Flow Rate 1.5 1.5 02/08/24 20:30 02/08/24 21:12 02/09/24 02:00 Temperature 97.5 F L 96.8 F L Temperature Source Temporal Artery Scan Temporal Artery Scan Pulse Rate 98 84 Respiratory Rate 18 18 Blood Pressure 168/77 H 165/90 H Blood Pressure Mean 107 115 Blood Pressure Location Left Arm Left Arm Blood Pressure Position Supine Supine O2 Sat by Pulse Oximetry 97 97 100 Oxygen Delivery Method Nasal Cannula Nasal Cannula Nasal Cannula Oxygen Flow Rate 1.5 1.5 1.5 02/09/24 05:32 02/09/24 06:00 Temperature 96.5 F L Temperature Source Temporal Artery Scan Pulse Rate 85 Respiratory Rate 18 Blood Pressure 177/69 H Blood Pressure Mean 105 Blood Pressure Location Right Arm Blood Pressure Position Supine O2 Sat by Pulse Oximetry 95 94 L Oxygen Delivery Method Nasal Cannula Nasal Cannula Oxygen Flow Rate 1.5 1 Lab Results Lab Results: Lab Results: Last 24 Hours 02/09/24 02/07/24 04:40 05:22 WBC 9.30 RBC 3.61 L Hgb 11.2 L Hct 35.2 L MCV 97.5 MCH 31.0 MCHC 31.8 RDW Coeff of Emely 12.9 Plt Count 209 Immature Gran % (Auto) 0.6 Neut % (Auto) 72.5 Lymph % (Auto) 15.3 [place] % (Auto) 9.5 Eos % (Auto) 1.9 Baso % (Auto) 0.2 Neut # (Auto) 6.7 Lymph # (Auto) 1.4 [place] # (Auto) 0.9 Eos # (Auto) 0.2 Baso # (Auto) 0.0 Immature Gran # (Auto) 0.1 Sodium 131.8 L Potassium 4.52 Chloride 95.1 L Carbon Dioxide 31.1 H Anion Gap 10.12 BUN 20.4 H Creatinine 0.94 Estimated GFR (MDRD) 57.00 BUN/Creatinine Ratio 21.70 Glucose 147.4 H Serum Osmolality 271 L Calcium 8.46 Total Bilirubin 0.35 AST 18.8 ALT 14.4 Alkaline Phosphatase 62.8 Total Protein 6.20 L Albumin 3.28 L Globulin 2.92 Albumin/Globulin Ratio 1.12 Additional Comments Additional Comments: I have independently reviewed and interpreted the labs/EKGs/imaging ordered during this hospital stay. I have reviewed outside records that are available in our EMR that pertain to medical stay including imaging/notes/labs from previous visits. Active Medications Active Medications: Medications Generic Name Dose Route Start Last Admin Trade Name Freq PRN Reason Stop Dose Admin Acetaminophen 650 mg 02/06/24 16:47 Acetaminophen 325 Mg Tablet PO Q4H PRN Mild Pain Hydrocodone Bitart/Acetaminophen 1 tab 02/07/24 15:35 02/09/24 09:04 Hydrocodone Bit/Acetaminophen 10/325 Mg Tablet PO 1 tab Q4H PRN Administration Pain Alprazolam 0.25 mg 02/06/24 20:50 02/08/24 21:19 Alprazolam 0.25 Mg Tablet PO 0.25 mg DAILY PRN Administration ANXIETY Cholecalciferol 1,000 unit 02/07/24 09:00 02/09/24 09:04 Cholecalciferol (Vitamin D3) 1,000 Unit (25 Mcg) Tablet PO 1,000 unit DAILY TOM Administration Cyclobenzaprine HCl 5 mg 02/07/24 08:22 02/09/24 08:30 Cyclobenzaprine Hcl 10 Mg Tablet PO 5 mg TID PRN Administration Spasms Diltiazem HCl 60 mg 02/06/24 21:00 02/09/24 09:04 Diltiazem Hcl 60 Mg Tablet PO 60 mg BID TOM Administration Docusate Sodium 100 mg 02/07/24 09:00 02/09/24 09:03 Docusate Sodium 100 Mg Capsule PO 100 mg BID TOM Administration Furosemide 20 mg 02/07/24 06:00 02/09/24 05:02 Furosemide 20 Mg Tablet PO 20 mg QDAC2 TOM Administration Insulin Human Regular 0 unit 02/06/24 16:49 02/08/24 21:20 Insulin Regular, Human 100 Unit/Ml (10ml) Vial SUBCUT 10 unit PRN PRN Administration Hyperglycemia Protocol Ipratropium [place] 1.25 ml 02/07/24 10:50 02/08/24 10:57 Ipratropium [place] 0.02% Vial.Neb NEB 1.25 ml TID PRN Administration shortness of breath Levothyroxine Sodium 50 mcg 02/07/24 06:00 02/09/24 05:02 Levothyroxine Sodium 50 Mcg Tablet PO 50 mcg QDAC2 TOM Administration Lidocaine 1 patch 02/07/24 10:49 02/09/24 08:30 Lidocaine 5% Patch TP 1 patch DAILY PRN Administration Pain Lisinopril 20 mg 02/07/24 09:00 02/09/24 09:03 Lisinopril 10 Mg Tablet PO 20 mg DAILY TOM Administration Meclizine HCl 12.5 mg 02/06/24 16:49 Meclizine Hcl 25 Mg Tablet PO BID PRN Dizziness Morphine Sulfate 2 mg 02/06/24 16:47 02/07/24 11:27 Morphine Sulfate 2 Mg/Ml Syringe IVP 2 mg Q6H PRN Administration Pain Ondansetron HCl 4 mg 02/06/24 16:47 Ondansetron Hcl/Pf 4 Mg/2 Ml Sdv IVP Q6H PRN Nausea / Vomiting Polyethylene Glycol 17 gm 02/07/24 09:00 02/09/24 09:05 Polyethylene Glycol 17 Gm Powd.Pack PO 17 gm DAILY TOM Administration Primidone 25 mg 02/06/24 21:00 02/08/24 21:19 Primidone 50 Mg Tablet PO 25 mg BEDTIME TOM Administration Simvastatin 20 mg 02/08/24 17:00 02/08/24 16:34 Simvastatin 10 Mg Tablet PO 20 mg QPM TOM Administration Sodium Chloride 1 gm 02/08/24 21:00 02/09/24 09:04 Sodium Chloride 1 Gm Tablet PO 1 gm TID TOM Administration Sodium Chloride 1 syr 02/09/24 05:00 02/09/24 04:54 0.9% Sodium Chloride 10 Ml Disp.Syrin IVF 1 syr Q8HR TOM Administration Plan Plan: 1. Intractable Pain in setting of Bilateral Sacral Fracture - Unchanges, morphine 2mg Q4H prn, norco increased to Q4H prn, flexeril tid prn lidocaine patch daily prn, ortho consulted in ER - nonsurgical, pt/ot consult 2. Leukocytosis - likely due to recent steroid injections, no s/sx of infection, UA and chest x-ray negative 3. Hyponatremia - mild, improving, stop fluids, restart lasix 4. DM2 - chronic, accuchecks qid with ssi, hold oral agents, ADA diet 5. Hypertension - chronic, continue home medications 6. Acute Hypoxic Respiratory Failure - secondary to fluid overload likely and COPD, wean oxygen as tolerated, restarted lasix yesterday, nebs prn DVT Prophylaxis: Mj Review Statement Review Statement: I have personally discussed and reviewed the patient's visit/currently labs/imaging/decision making with Dr. Rivers, my supervising attending. Greater that 50 minutes spent with patient, 50% of the time spent with this patient was devoted to counseling and coordination of care.
[2024-02-10 02:09] LABS: OSMOLALITY,URINE 443 mOsmol/kg (.)
[2024-02-10 05:34] LABS: BASOPHILS % (AUTO) 0.3 % (0.0-3.0); EOSINOPHILS # (AUTO) 0.2 K/ul (0.0-0.7); EOSINOPHILS % (AUTO) 1.8 % (0.0-7.0); HEMATOCRIT 38.7 % (37.0-47.0); HEMOGLOBIN 12.4 g/dl (12.0-16.0); IMMATURE GRANULOCYTE # (AUTO) 0.1 (0.0-1.0); IMMATURE GRANULOCYTE % (AUTO) 0.8 % (0.0-5.0); LYMPHOCYTES # (AUTO) 1.5 K/uL (0.60-3.4); LYMPHOCYTES % (AUTO) 17.7 (10.0-50.0); MEAN CORPUSCULAR HEMOGLOBIN 30.8 pg (27.0-31.0); MONOCYTES # (AUTO) 0.7 K/uL (0.4-2.0); MONOCYTES % (AUTO) 7.8 (0-10); NEUTROPHILS # (AUTO) 6.2 K/ul (2.0-6.9); NEUTROPHILS % (AUTO) 71.6 % (42.2-75.2); PLATELET COUNT 225 10^3/uL (140-440); RDW COEFFICIENT OF VARIATION 12.9 % (11.6-14.8); RED BLOOD COUNT 4.03 10^6/ul (4.20-5.40); WHITE BLOOD COUNT 8.71 K/ul (4.6-10.2)
[2024-02-10 05:47] LABS: ALANINE AMINOTRANSFERASE 16.4 U/L (0-35); ALBUMIN 3.68 g/dL (3.5-5.0); ALKALINE PHOSPHATASE 73.8 U/L (53-141); ASPARTATE AMINO TRANSFERASE 24.4 U/L (14-36); BILIRUBIN,TOTAL 0.52 mg/dL (0.2-1.3); BLOOD UREA NITROGEN 22.9 mg/dL (7-17); CALCIUM 9.01 mg/dL (8.4-10.2); CARBON DIOXIDE 30.9 mmol/L (22-30.0); CHLORIDE 91.6 mmol/L (98-107); CREATININE 0.94 mg/dL (0.60-1.30); GLUCOSE 207.5 mg/dL (74-106); POTASSIUM 4.75 mmol/L (3.5-5.1); SODIUM 128.1 mmol/L (134.5-145); TOTAL PROTEIN 6.94 g/dL (6.3-8.2)
[2024-02-10] MEDS: ZESTRIL PO SCH (08:22)
--- NOTE | 2024-02-10 09:53 | PCM.PROG ---
Provider Provider: KATHY WOMACK, [facility] Chief Complaint Chief Complaint: SACRAL FRACTURE; INTRACTABLE LOW BACK PAIN Vital Signs Vital Signs: Vital Signs: Last 24 Hours 02/09/24 10:00 02/09/24 10:00 02/09/24 13:57 Temperature 97.9 F 97.7 F Temperature Source Temporal Artery Scan Temporal Artery Scan Pulse Rate 110 H 102 H Respiratory Rate 19 20 Blood Pressure 179/84 H 140/84 Blood Pressure Mean 115 102 Blood Pressure Location Left Arm Left Arm Blood Pressure Position Sitting Sitting O2 Sat by Pulse Oximetry 96 95 97 Oxygen Delivery Method Nasal Cannula Nasal Cannula Nasal Cannula Oxygen Flow Rate 1.5 1 1.5 02/09/24 17:09 02/09/24 19:58 02/09/24 20:00 Temperature 97.6 F Temperature Source Temporal Artery Scan Pulse Rate 89 Respiratory Rate 20 18 Blood Pressure 145/96 H Blood Pressure Mean 112 Blood Pressure Location Right Arm Blood Pressure Position Supine O2 Sat by Pulse Oximetry 97 95 Oxygen Delivery Method Nasal Cannula Nasal Cannula Nasal Cannula Oxygen Flow Rate 1.5 0.5 0.5 02/09/24 21:17 02/10/24 05:17 02/10/24 05:23 Temperature 97.3 F L 98.0 F Temperature Source Temporal Artery Scan Temporal Artery Scan Pulse Rate 109 H 103 H Respiratory Rate 18 18 Blood Pressure 173/75 H 169/91 H Blood Pressure Mean 107 117 Blood Pressure Location Left Arm Right Arm Blood Pressure Position Supine Supine O2 Sat by Pulse Oximetry 92 L 95 97 Oxygen Delivery Method Nasal Cannula Nasal Cannula Nasal Cannula Oxygen Flow Rate 0.5 0.5 0.5 Lab Results Lab Results: Lab Results: Last 24 Hours 02/10/24 02/07/24 05:26 05:22 WBC 8.71 RBC 4.03 L Hgb 12.4 Hct 38.7 MCV 96.0 MCH 30.8 MCHC 32.0 RDW Coeff of Emely 12.9 Plt Count 225 Immature Gran % (Auto) 0.8 Neut % (Auto) 71.6 Lymph % (Auto) 17.7 [place] % (Auto) 7.8 Eos % (Auto) 1.8 Baso % (Auto) 0.3 Neut # (Auto) 6.2 Lymph # (Auto) 1.5 [place] # (Auto) 0.7 Eos # (Auto) 0.2 Baso # (Auto) 0.0 Immature Gran # (Auto) 0.1 Sodium 128.1 L Potassium 4.75 Chloride 91.6 L Carbon Dioxide 30.9 H Anion Gap 10.35 BUN 22.9 H Creatinine 0.94 Estimated GFR (MDRD) 57.00 BUN/Creatinine Ratio 24.36 Glucose 207.5 H Calcium 9.01 Total Bilirubin 0.52 AST 24.4 ALT 16.4 Alkaline Phosphatase 73.8 Total Protein 6.94 Albumin 3.68 Globulin 3.26 Albumin/Globulin Ratio 1.12 Urine Osmolality 443 Additional Comments Additional Comments: I have independently reviewed and interpreted the labs/EKGs/imaging ordered during this hospital stay. I have reviewed outside records that are available in our EMR that pertain to medical stay including imaging/notes/labs from previous visits. Active Medications Active Medications: Medications Generic Name Dose Route Start Last Admin Trade Name Freq PRN Reason Stop Dose Admin Acetaminophen 650 mg 02/06/24 16:47 Acetaminophen 325 Mg Tablet PO Q4H PRN Mild Pain Hydrocodone Bitart/Acetaminophen 1 tab 02/07/24 15:35 02/10/24 05:43 Hydrocodone Bit/Acetaminophen 10/325 Mg Tablet PO 1 tab Q4H PRN Administration Pain Alprazolam 0.25 mg 02/06/24 20:50 02/09/24 20:43 Alprazolam 0.25 Mg Tablet PO 0.25 mg DAILY PRN Administration ANXIETY Cholecalciferol 1,000 unit 02/07/24 09:00 02/10/24 08:22 Cholecalciferol (Vitamin D3) 1,000 Unit (25 Mcg) Tablet PO 1,000 unit DAILY TOM Administration Cyclobenzaprine HCl 5 mg 02/07/24 08:22 02/10/24 08:22 Cyclobenzaprine Hcl 10 Mg Tablet PO 5 mg TID PRN Administration Spasms Diltiazem HCl 60 mg 02/06/24 21:00 02/10/24 08:22 Diltiazem Hcl 60 Mg Tablet PO 60 mg BID TOM Administration Docusate Sodium 100 mg 02/07/24 09:00 02/10/24 08:22 Docusate Sodium 100 Mg Capsule PO 100 mg BID TOM Administration Furosemide 20 mg 02/07/24 06:00 02/10/24 05:30 Furosemide 20 Mg Tablet PO 20 mg QDAC2 TOM Administration Insulin Human Regular 0 unit 02/06/24 16:49 02/10/24 06:01 Insulin Regular, Human 100 Unit/Ml (10ml) Vial SUBCUT 2 unit PRN PRN Administration Hyperglycemia Protocol Ipratropium [place] 1.25 ml 02/07/24 10:50 02/08/24 10:57 Ipratropium [place] 0.02% Vial.Neb NEB 1.25 ml TID PRN Administration shortness of breath Levothyroxine Sodium 50 mcg 02/07/24 06:00 02/10/24 05:30 Levothyroxine Sodium 50 Mcg Tablet PO 50 mcg QDAC2 TOM Administration Lidocaine 1 patch 02/07/24 10:49 02/09/24 08:30 Lidocaine 5% Patch TP 1 patch DAILY PRN Administration Pain Lisinopril 40 mg 02/10/24 09:00 02/10/24 08:22 Lisinopril 10 Mg Tablet PO 40 mg DAILY TOM Administration Meclizine HCl 12.5 mg 02/06/24 16:49 Meclizine Hcl 25 Mg Tablet PO BID PRN Dizziness Morphine Sulfate 2 mg 02/06/24 16:47 02/07/24 11:27 Morphine Sulfate 2 Mg/Ml Syringe IVP 2 mg Q6H PRN Administration Pain Ondansetron HCl 4 mg 02/06/24 16:47 Ondansetron Hcl/Pf 4 Mg/2 Ml Sdv IVP Q6H PRN Nausea / Vomiting Polyethylene Glycol 17 gm 02/07/24 09:00 02/10/24 08:21 Polyethylene Glycol 17 Gm Powd.Pack PO 17 gm DAILY TOM Administration Primidone 25 mg 02/06/24 21:00 02/09/24 20:42 Primidone 50 Mg Tablet PO 25 mg BEDTIME TOM Administration Simvastatin 20 mg 02/08/24 17:00 02/09/24 17:20 Simvastatin 10 Mg Tablet PO 20 mg QPM TOM Administration Sodium Chloride 1 gm 02/08/24 21:00 02/10/24 08:22 Sodium Chloride 1 Gm Tablet PO 1 gm TID TOM Administration Sodium Chloride 1 syr 02/09/24 05:00 02/10/24 05:31 0.9% Sodium Chloride 10 Ml Disp.Syrin IVF 1 syr Q8HR TOM Administration Plan Plan: 1. Intractable Pain in setting of Bilateral Sacral Fracture - Improving, morphine 2mg Q4H prn, norco increased to Q4H prn, flexeril tid prn lidocaine patch daily prn, ortho consulted in ER - nonsurgical, pt/ot consult 2. Leukocytosis - Resolved 3. Hyponatremia - Stable between 128-130, likely chronic due to diuretic use, osmolalities normal 4. DM2 - chronic, accuchecks qid with ssi, hold oral agents, ADA diet 5. Hypertension - chronic, continue home medications 6. Acute Hypoxic Respiratory Failure - secondary to fluid overload likely and COPD, Improving - on 0.5L today, wean oxygen as tolerated, restarted lasix yesterday, nebs prn DVT Prophylaxis: Mj Dispo: awaiting insurance approval for SNF placement - [facility] Review Statement Review Statement: I have personally discussed and reviewed the patient's visit/currently labs/imaging/decision making with Dr. Rivers, my supervising attending. Greater that 50 minutes spent with patient, 50% of the time spent with this patient was devoted to counseling and coordination of care.
[2024-02-10] MEDS: NORVASC PO SCH (16:00)
[2024-02-11 05:14] LABS: BASOPHILS % (AUTO) 0.5 % (0.0-3.0); EOSINOPHILS # (AUTO) 0.2 K/ul (0.0-0.7); EOSINOPHILS % (AUTO) 1.9 % (0.0-7.0); HEMATOCRIT 36.1 % (37.0-47.0); HEMOGLOBIN 11.6 g/dl (12.0-16.0); IMMATURE GRANULOCYTE % (AUTO) 0.5 % (0.0-5.0); LYMPHOCYTES # (AUTO) 1.7 K/uL (0.60-3.4); MEAN CORPUSCULAR HEMOGLOBIN 30.7 pg (27.0-31.0); MEAN CORPUSCULAR HGB CONC 32.1 (31.8-35.4); MEAN CORPUSCULAR VOLUME 95.5 fl (81.0-99.0); MONOCYTES # (AUTO) 0.8 K/uL (0.4-2.0); MONOCYTES % (AUTO) 10.7 (0-10); NEUTROPHILS % (AUTO) 64.4 % (42.2-75.2); PLATELET COUNT 241 10^3/uL (140-440); RDW COEFFICIENT OF VARIATION 12.7 % (11.6-14.8); RED BLOOD COUNT 3.78 10^6/ul (4.20-5.40); WHITE BLOOD COUNT 7.79 K/ul (4.6-10.2)
[2024-02-11 05:29] LABS: ALANINE AMINOTRANSFERASE 15.6 U/L (0-35); ALBUMIN 3.39 g/dL (3.5-5.0); ALKALINE PHOSPHATASE 67.7 U/L (53-141); ASPARTATE AMINO TRANSFERASE 29.4 U/L (14-36); BILIRUBIN,TOTAL 0.38 mg/dL (0.2-1.3); BLOOD UREA NITROGEN 26.8 mg/dL (7-17); CALCIUM 9.02 mg/dL (8.4-10.2); CHLORIDE 91.7 mmol/L (98-107); CREATININE 0.92 mg/dL (0.60-1.30); GLUCOSE 115.4 mg/dL (74-106); POTASSIUM 4.69 mmol/L (3.5-5.1); SODIUM 129.5 mmol/L (134.5-145); TOTAL PROTEIN 6.4 g/dL (6.3-8.2)
--- NOTE | 2024-02-11 09:28 | PCM.PROG ---
Date/Time Seen Date Seen by Provider: 02/11/24 Time Seen by Provider: 08:45 Provider Provider[facility] Chief Complaint Chief Complaint: SACRAL FRACTURE; INTRACTABLE LOW BACK PAIN Subjective Subjective: Pain better controlled. No further complaints today. Vital Signs Vital Signs: Vital Signs: Last 24 Hours 02/10/24 10:00 02/10/24 10:00 02/10/24 13:49 Temperature 97 F L Temperature Source Oral Pulse Rate 94 Respiratory Rate 18 Blood Pressure 171/68 H Blood Pressure Mean 102 Blood Pressure Location Right Arm Blood Pressure Position Sitting O2 Sat by Pulse Oximetry 96 97 Oxygen Delivery Method Room Air Nasal Cannula Nasal Cannula Oxygen Flow Rate 0.5 0.5 02/10/24 14:00 02/10/24 18:00 02/10/24 20:00 Temperature 97.0 F L 97.2 F L Temperature Source Temporal Artery Scan Temporal Artery Scan Pulse Rate 105 H 102 H Respiratory Rate 18 16 Blood Pressure 176/95 H 93/44 L Blood Pressure Mean 122 60 Blood Pressure Location Right Arm Left Arm Blood Pressure Position O2 Sat by Pulse Oximetry 96 96 96 Oxygen Delivery Method Nasal Cannula Nasal Cannula Nasal Cannula Oxygen Flow Rate 0.5 0.5 0.5 02/10/24 20:00 02/10/24 20:38 02/11/24 02:00 Temperature 97.9 F Temperature Source Temporal Artery Scan Pulse Rate 100 Respiratory Rate 23 H Blood Pressure 159/69 H Blood Pressure Mean 99 Blood Pressure Location Right Arm Blood Pressure Position Supine O2 Sat by Pulse Oximetry 97 Oxygen Delivery Method Nasal Cannula Nasal Cannula Nasal Cannula Oxygen Flow Rate 0.5 0.5 02/11/24 05:21 02/11/24 05:22 02/11/24 08:00 Temperature 97.3 F L Temperature Source Temporal Artery Scan Pulse Rate 86 Respiratory Rate 20 Blood Pressure 157/74 H Blood Pressure Mean 101 Blood Pressure Location Right Arm Blood Pressure Position Supine O2 Sat by Pulse Oximetry 95 95 Oxygen Delivery Method Room Air Nasal Cannula Nasal Cannula Oxygen Flow Rate 0.5 0.5 0.5 Lab Results Lab Results: Lab Results: Last 24 Hours 02/11/24 05:09 WBC 7.79 RBC 3.78 L Hgb 11.6 L Hct 36.1 L MCV 95.5 MCH 30.7 MCHC 32.1 RDW Coeff of Emely 12.7 Plt Count 241 Immature Gran % (Auto) 0.5 Neut % (Auto) 64.4 Lymph % (Auto) 22.0 [place] % (Auto) 10.7 H Eos % (Auto) 1.9 Baso % (Auto) 0.5 Neut # (Auto) 5.0 Lymph # (Auto) 1.7 [place] # (Auto) 0.8 Eos # (Auto) 0.2 Baso # (Auto) 0.0 Immature Gran # (Auto) 0.0 Sodium 129.5 L Potassium 4.69 Chloride 91.7 L Carbon Dioxide 33.0 H Anion Gap 9.49 BUN 26.8 H Creatinine 0.92 Estimated GFR (MDRD) 59.00 BUN/Creatinine Ratio 29.13 Glucose 115.4 H D Calcium 9.02 Total Bilirubin 0.38 AST 29.4 ALT 15.6 Alkaline Phosphatase 67.7 Total Protein 6.40 Albumin 3.39 L Globulin 3.01 Albumin/Globulin Ratio 1.12 Additional Comments Additional Comments: I have independently reviewed and interpreted the labs/EKGs/imaging ordered during this hospital stay. I have reviewed outside records that are available in our EMR that pertain to medical stay including imaging/notes/labs from previous visits. Active Medications Active Medications: Medications Generic Name Dose Route Start Last Admin Trade Name Freq PRN Reason Stop Dose Admin Acetaminophen 650 mg 02/06/24 16:47 Acetaminophen 325 Mg Tablet PO Q4H PRN Mild Pain Hydrocodone Bitart/Acetaminophen 1 tab 02/07/24 15:35 02/11/24 04:34 Hydrocodone Bit/Acetaminophen 10/325 Mg Tablet PO 1 tab Q4H PRN Administration Pain Alprazolam 0.25 mg 02/06/24 20:50 02/10/24 20:16 Alprazolam 0.25 Mg Tablet PO 0.25 mg DAILY PRN Administration ANXIETY Amlodipine Besylate 5 mg 02/10/24 15:40 02/11/24 08:24 Amlodipine Besylate 5 Mg Tablet PO 5 mg DAILY TOM Administration Cholecalciferol 1,000 unit 02/07/24 09:00 02/11/24 08:24 Cholecalciferol (Vitamin D3) 1,000 Unit (25 Mcg) Tablet PO 1,000 unit DAILY TOM Administration Cyclobenzaprine HCl 5 mg 02/07/24 08:22 02/10/24 08:22 Cyclobenzaprine Hcl 10 Mg Tablet PO 5 mg TID PRN Administration Spasms Diltiazem HCl 60 mg 02/06/24 21:00 02/11/24 08:25 Diltiazem Hcl 60 Mg Tablet PO 60 mg BID TOM Administration Docusate Sodium 100 mg 02/07/24 09:00 02/11/24 08:25 Docusate Sodium 100 Mg Capsule PO 100 mg BID TOM Administration Furosemide 20 mg 02/07/24 06:00 02/11/24 05:12 Furosemide 20 Mg Tablet PO 20 mg QDAC2 TOM Administration Insulin Human Regular 0 unit 02/10/24 20:59 Insulin Regular, Human 100 Unit/Ml (10ml) Vial SUBCUT PRN PRN Hyperglycemia Protocol Ipratropium [place] 1.25 ml 02/07/24 10:50 02/10/24 13:18 Ipratropium [place] 0.02% Vial.Neb NEB 1.25 ml TID PRN Administration shortness of breath Levothyroxine Sodium 50 mcg 02/07/24 06:00 02/11/24 05:12 Levothyroxine Sodium 50 Mcg Tablet PO 50 mcg QDAC2 TOM Administration Lidocaine 1 patch 02/07/24 10:49 02/09/24 08:30 Lidocaine 5% Patch TP 1 patch DAILY PRN Administration Pain Lisinopril 40 mg 02/10/24 09:00 02/11/24 08:23 Lisinopril 10 Mg Tablet PO 40 mg DAILY TOM Administration Meclizine HCl 12.5 mg 02/06/24 16:49 Meclizine Hcl 25 Mg Tablet PO BID PRN Dizziness Ondansetron HCl 4 mg 02/06/24 16:47 Ondansetron Hcl/Pf 4 Mg/2 Ml Sdv IVP Q6H PRN Nausea / Vomiting Polyethylene Glycol 17 gm 02/07/24 09:00 02/11/24 08:23 Polyethylene Glycol 17 Gm Powd.Pack PO 17 gm DAILY TOM Administration Primidone 25 mg 02/06/24 21:00 02/10/24 20:16 Primidone 50 Mg Tablet PO 25 mg BEDTIME TOM Administration Simvastatin 20 mg 02/08/24 17:00 02/10/24 16:00 Simvastatin 10 Mg Tablet PO 20 mg QPM TOM Administration Sodium Chloride 1 gm 02/08/24 21:00 02/11/24 08:25 Sodium Chloride 1 Gm Tablet PO 1 gm TID TOM Administration Sodium Chloride 1 syr 02/09/24 05:00 02/11/24 05:12 0.9% Sodium Chloride 10 Ml Disp.Syrin IVF 1 syr Q8HR TOM Administration Plan Plan: 1. Intractable Pain in setting of Bilateral Sacral Fracture - Improving, norco Q4H prn, flexeril tid prn lidocaine patch daily prn, ortho consulted in ER - nonsurgical, pt/ot 2. Leukocytosis - Resolved 3. Hyponatremia - Stable between 128-130, likely chronic due to diuretic use, osmolalities normal 4. DM2 - chronic, accuchecks qid with ssi, hold oral agents, ADA diet 5. Hypertension - chronic, continue home medications 6. Acute Hypoxic Respiratory Failure - secondary to fluid overload likely and COPD, Improving - on 0.5L today, wean oxygen as tolerated, restarted lasix yesterday, nebs prn DVT Prophylaxis: Mj Dispo: awaiting insurance approval for SNF placement - [facility] Review Statement Review Statement: I have personally discussed and reviewed the patient's visit/currently labs/imaging/decision making with Dr. Rivers, my supervising attending. Greater that 50 minutes spent with patient, 50% of the time spent with this patient was devoted to counseling and coordination of care.
[2024-02-11] MEDS: HUMULIN R (10ML) SUBCUT PRN (12:14)
[2024-02-11] MEDS: TYLENOL PO PRN (12:14)
[2024-02-12 05:19] LABS: BASOPHILS % (AUTO) 0.4 % (0.0-3.0); EOSINOPHILS # (AUTO) 0.2 K/ul (0.0-0.7); EOSINOPHILS % (AUTO) 2.1 % (0.0-7.0); HEMATOCRIT 37.4 % (37.0-47.0); HEMOGLOBIN 12.2 g/dl (12.0-16.0); IMMATURE GRANULOCYTE % (AUTO) 0.5 % (0.0-5.0); LYMPHOCYTES # (AUTO) 2.4 K/uL (0.60-3.4); MEAN CORPUSCULAR HEMOGLOBIN 31.4 pg (27.0-31.0); MEAN CORPUSCULAR HGB CONC 32.6 (31.8-35.4); MEAN CORPUSCULAR VOLUME 96.1 fl (81.0-99.0); MONOCYTES % (AUTO) 11.7 (0-10); NEUTROPHILS # (AUTO) 4.9 K/ul (2.0-6.9); NEUTROPHILS % (AUTO) 57.3 % (42.2-75.2); PLATELET COUNT 253 10^3/uL (140-440); RDW COEFFICIENT OF VARIATION 12.9 % (11.6-14.8); RED BLOOD COUNT 3.89 10^6/ul (4.20-5.40); WHITE BLOOD COUNT 8.47 K/ul (4.6-10.2)
[2024-02-12 05:32] LABS: ALBUMIN 3.54 g/dL (3.5-5.0); ALKALINE PHOSPHATASE 75.2 U/L (53-141); ASPARTATE AMINO TRANSFERASE 23.9 U/L (14-36); BILIRUBIN,TOTAL 0.3 mg/dL (0.2-1.3); BLOOD UREA NITROGEN 27.1 mg/dL (7-17); CALCIUM 9.22 mg/dL (8.4-10.2); CARBON DIOXIDE 32.8 mmol/L (22-30.0); CHLORIDE 89.9 mmol/L (98-107); CREATININE 0.95 mg/dL (0.60-1.30); GLUCOSE 179.6 mg/dL (74-106); POTASSIUM 4.71 mmol/L (3.5-5.1); SODIUM 128.7 mmol/L (134.5-145); TOTAL PROTEIN 6.52 g/dL (6.3-8.2)
[2024-02-12] MEDS: DULCOLAX PO PRN (08:57)
--- NOTE | 2024-02-12 10:34 | PCM.PROG ---
Date/Time Seen Date Seen by Provider: 02/12/24 Time Seen by Provider: 08:45 Provider Provider: Caryl Baker [facility]-C, [facility] Chief Complaint Chief Complaint: SACRAL FRACTURE; INTRACTABLE LOW BACK PAIN Subjective Subjective: Patient states her pain is overall better since arrival but still present. Makes it difficult to perform ADLs. She is awaiting snf placement for rehab. She has not had a BM in several days. States she usually has to do an enema at home. Objective Appearance: Positive No Apparent Distress and Alert and Oriented x3 Chest/Lungs: Positive Clear to Auscultation Bilaterally; Negative Rales, Rhonci or Wheezes Heart: Positive RRR GI/: Positive Soft, Nontender, Bowel Sounds Normal and No Distention Neurological: Positive Cranial Nerves Intact, Alert, Oriented and Other (+generalized weakness ) Vital Signs Vital Signs: Vital Signs: Last 24 Hours 02/11/24 14:00 02/11/24 14:00 02/11/24 17:59 Temperature 97.3 F L 97.6 F Temperature Source Temporal Artery Scan Temporal Artery Scan Pulse Rate 107 H 107 H Respiratory Rate 16 16 Blood Pressure 171/91 H 137/61 Blood Pressure Mean 117 86 Blood Pressure Location Left Arm Left Arm Blood Pressure Position O2 Sat by Pulse Oximetry 98 93 L Oxygen Delivery Method Nasal Cannula Nasal Cannula Room Air Oxygen Flow Rate 0.5 0.5 02/11/24 19:14 02/11/24 20:00 02/11/24 20:26 Temperature 97.2 F L Temperature Source Temporal Artery Scan Pulse Rate 99 Respiratory Rate 21 H Blood Pressure 155/73 H Blood Pressure Mean 100 Blood Pressure Location Right Arm Blood Pressure Position Supine O2 Sat by Pulse Oximetry 94 L 95 Oxygen Delivery Method Room Air Room Air Room Air Oxygen Flow Rate 02/12/24 05:25 02/12/24 05:46 02/12/24 08:00 Temperature 98.9 F Temperature Source Temporal Artery Scan Pulse Rate 96 Respiratory Rate Blood Pressure 148/90 H Blood Pressure Mean 109 Blood Pressure Location Blood Pressure Position O2 Sat by Pulse Oximetry 92 L 92 L Oxygen Delivery Method Room Air Room Air Room Air Oxygen Flow Rate 02/12/24 10:00 Temperature Temperature Source Pulse Rate Respiratory Rate Blood Pressure Blood Pressure Mean Blood Pressure Location Blood Pressure Position O2 Sat by Pulse Oximetry 93 L Oxygen Delivery Method Room Air Oxygen Flow Rate Lab Results Lab Results: Lab Results: Last 24 Hours 02/12/24 05:14 WBC 8.47 RBC 3.89 L Hgb 12.2 Hct 37.4 MCV 96.1 MCH 31.4 H MCHC 32.6 RDW Coeff of Emely 12.9 Plt Count 253 Immature Gran % (Auto) 0.5 Neut % (Auto) 57.3 Lymph % (Auto) 28.0 [place] % (Auto) 11.7 H Eos % (Auto) 2.1 Baso % (Auto) 0.4 Neut # (Auto) 4.9 Lymph # (Auto) 2.4 [place] # (Auto) 1.0 Eos # (Auto) 0.2 Baso # (Auto) 0.0 Immature Gran # (Auto) 0.0 Sodium 128.7 L Potassium 4.71 Chloride 89.9 L Carbon Dioxide 32.8 H Anion Gap 10.71 BUN 27.1 H Creatinine 0.95 Estimated GFR (MDRD) 57.00 BUN/Creatinine Ratio 28.52 Glucose 179.6 H Calcium 9.22 Total Bilirubin 0.30 AST 23.9 ALT 18.0 Alkaline Phosphatase 75.2 Total Protein 6.52 Albumin 3.54 Globulin 2.98 Albumin/Globulin Ratio 1.18 Additional Comments Additional Comments: I have independently reviewed and interpreted the labs/EKGs/imaging ordered during this hospital stay. I have reviewed outside records that are available in our EMR that pertain to medical stay including imaging/notes/labs from previous visits. Active Medications Active Medications: Medications Generic Name Dose Route Start Last Admin Trade Name Freq PRN Reason Stop Dose Admin Acetaminophen 650 mg 02/06/24 16:47 02/11/24 12:14 Acetaminophen 325 Mg Tablet PO 650 mg Q4H PRN Administration Mild Pain Hydrocodone Bitart/Acetaminophen 1 tab 02/07/24 15:35 02/12/24 08:23 Hydrocodone Bit/Acetaminophen 10/325 Mg Tablet PO 1 tab Q4H PRN Administration Pain Alprazolam 0.25 mg 02/06/24 20:50 02/11/24 20:47 Alprazolam 0.25 Mg Tablet PO 0.25 mg DAILY PRN Administration ANXIETY Amlodipine Besylate 5 mg 02/10/24 15:40 02/12/24 08:28 Amlodipine Besylate 5 Mg Tablet PO 5 mg DAILY OTM Administration Bisacodyl 5 mg 02/12/24 08:38 02/12/24 08:57 Bisacodyl 5 Mg Tablet. PO 5 mg DAILY PRN Administration Constipation Cholecalciferol 1,000 unit 02/07/24 09:00 02/12/24 08:36 Cholecalciferol (Vitamin D3) 1,000 Unit (25 Mcg) Tablet PO 1,000 unit DAILY TOM Administration Cyclobenzaprine HCl 5 mg 02/07/24 08:22 02/10/24 08:22 Cyclobenzaprine Hcl 10 Mg Tablet PO 5 mg TID PRN Administration Spasms Diltiazem HCl 60 mg 02/06/24 21:00 02/12/24 08:25 Diltiazem Hcl 60 Mg Tablet PO 60 mg BID TOM Administration Docusate Sodium 100 mg 02/07/24 09:00 02/12/24 08:28 Docusate Sodium 100 Mg Capsule PO 100 mg BID TOM Administration Furosemide 20 mg 02/07/24 06:00 02/12/24 05:20 Furosemide 20 Mg Tablet PO 20 mg QDAC2 TOM Administration Insulin Human Regular 0 unit 02/10/24 20:59 02/12/24 05:49 Insulin Regular, Human 100 Unit/Ml (10ml) Vial SUBCUT 3 unit PRN PRN Administration Hyperglycemia Protocol Ipratropium [place] 1.25 ml 02/07/24 10:50 02/10/24 13:18 Ipratropium [place] 0.02% Vial.Neb NEB 1.25 ml TID PRN Administration shortness of breath Levothyroxine Sodium 50 mcg 02/07/24 06:00 02/12/24 05:20 Levothyroxine Sodium 50 Mcg Tablet PO 50 mcg QDAC2 TOM Administration Lidocaine 1 patch 02/07/24 10:49 02/09/24 08:30 Lidocaine 5% Patch TP 1 patch DAILY PRN Administration Pain Lisinopril 40 mg 02/10/24 09:00 02/12/24 08:25 Lisinopril 10 Mg Tablet PO 40 mg DAILY TOM Administration Meclizine HCl 12.5 mg 02/06/24 16:49 Meclizine Hcl 25 Mg Tablet PO BID PRN Dizziness Ondansetron HCl 4 mg 02/06/24 16:47 Ondansetron Hcl/Pf 4 Mg/2 Ml Sdv IVP Q6H PRN Nausea / Vomiting Polyethylene Glycol 17 gm 02/07/24 09:00 02/12/24 08:21 Polyethylene Glycol 17 Gm Powd.Pack PO 17 gm DAILY TOM Administration Primidone 25 mg 02/06/24 21:00 02/11/24 20:48 Primidone 50 Mg Tablet PO 25 mg BEDTIME TOM Administration Simvastatin 20 mg 02/08/24 17:00 02/11/24 17:07 Simvastatin 10 Mg Tablet PO 20 mg QPM TOM Administration Sodium Chloride 1 gm 02/08/24 21:00 02/12/24 08:27 Sodium Chloride 1 Gm Tablet PO 1 gm TID TOM Administration Sodium Chloride 1 syr 02/09/24 05:00 02/12/24 05:21 0.9% Sodium Chloride 10 Ml Disp.Syrin IVF 1 syr Q8HR TOM Administration Plan Plan: 1. Intractable Pain in setting of Bilateral Sacral Fracture - Improving, norco Q4H prn, flexeril tid prn lidocaine patch daily prn, ortho consulted in ER - nonsurgical, pt/ot 2. Leukocytosis - Resolved 3. Hyponatremia - Stable between 128-130, likely chronic due to diuretic use, osmolalities normal 4. DM2 - chronic, accuchecks qid with ssi, hold oral agents, ADA diet 5. Hypertension - chronic, continue home medications 6. Acute Hypoxic Respiratory Failure - Resolved, on RA today. secondary to fluid overload likely and COPD, cont lasix, nebs prn DVT Prophylaxis: Mj Dispo: awaiting insurance approval for SNF placement - [facility] Review Statement Review Statement: I have personally discussed and reviewed the patient's visit/currently labs/imaging/decision making with Dr. Rivers, my supervising attending. Greater that 50 minutes spent with patient, 50% of the time spent with this patient was devoted to counseling and coordination of care.
--- NOTE | 2024-02-12 12:12 | DCSUM ---
Admission Date Admission Date: 02/06/24 Discharge Date Discharge Date: 02/12/24 Admission Diagnosis Admission Diagnosis: 1. Intractable Pain in setting of Bilateral Sacral Fracture Discharge Diagnosis Discharge Diagnosis: 1. Intractable Pain in setting of Bilateral Sacral Fracture - improved 2. Leukocytosis - Resolved 3. Hyponatremia 4. DM2 5. Hypertension 6. Acute Hypoxic Respiratory Failure - resolved Hospital Provider Hospital Provider: Ovidio Schwartz PA-C, [facility] Primary Care Physician Primary Care Physician: MARIA BRYANT MD Summary of History and Physical Summary of History and Physical: 78-year-old female presented to the ER with low back pain. States that this has been ongoing over the last several months but worsened over the last couple days. Denies any fall or injury. Had been receiving steroid injections by pain management that have been ineffective. Reports bilateral hip pain with spasm like pain shooting down both legs. Patient was found to have bilateral sacral fractures. Patient denies any injuries recently that she is aware of. Patient reports no imaging has been completed for 2-1/2 years while going to pain management. Patient reports pain to be 10 out of 10 with [place] given. Has been receiving morphine and is currently requesting a muscle relaxer to help with the spasms as well as a lidocaine cream or patch. Patient lives at home by herself and has been completely independent of all ADLs prior to this. Reports major concerns with going home due to requiring moderate assistance with 2 staff members at this time. Hospital Course Subjective: Patient was treated with norco and flexeril and lidocaine patches for pain. Pain improved but still hindering her physical ability to care for herself. She requested [facility] for rehab. She was initially given fluids for her hyponatremia, however she became fluid overloaded requiring 2L. Fluids were stopped, lasix given, and she was weaned to RA. She was hypertensive, systolic in 170s consistently, sometimes 190s. HR mildly elevated throughout stay as well. EKG showed SR with p waves present. Lisinopril increased from 20 to 40 mg during stay. Will also increase her diltiazem from 60 bid to 90 bid. Pt has been constipated, continue stool softeners upon discharge. She was able to have a BM today prior to discharge. Patient started on sodium chloride tabs for hyponatremia, reevaluate with bmp in 1 week. Pt agrees to plan of care. DC to SNF in stable condition. Appearance: No Apparent Distress and Alert HEENT: MMM and Supple CVS: Other (RRR) Abdomen: Soft, Non-Tender and No Distention Respiratory: No Accessory Muscle Use Extremities: No Edema Additional Findings: Pain with movement of low back, chronic Vital Signs: Most Recent Vital Signs Temperature 97.6 F 02/12/24 10:00 Temperature Source Temporal Artery Scan 02/12/24 10:00 Temperature Source Temporal Artery Scan 02/06/24 11:59 Pulse Rate 117 H 02/12/24 10:00 Respiratory Rate 17 02/12/24 10:00 Blood Pressure 137/68 02/12/24 10:00 Blood Pressure Mean 91 02/12/24 10:00 Blood Pressure Left Arm 183/97 02/06/24 17:06 Blood Pressure Location Right Arm 02/12/24 10:00 Blood Pressure Position Supine 02/12/24 10:00 O2 Sat by Pulse Oximetry 91 L 02/12/24 10:00 Oxygen Delivery Method Room Air 02/12/24 10:00 Oxygen Flow Rate 0.5 02/11/24 14:00 Height 5 ft 2 in 02/08/24 09:30 Weight 86.2 kg 02/08/24 09:30 Telemetry Heart Rate 95 11/03/17 07:00 Imaging: EXAM: CT OF THE PELVIS WITHOUT CONTRAST FINDINGS: Diffuse demineralization. Intervertebral the space narrowing, endplate degenerative change most severe at L5/S1. Chronic superior endplate irregularity at L5. Marked bilateral facet hypertrophy with bilateral foraminal narrowing L4/L5 and L5/S1, most severe at L5/S1. Cortical irregularity with sclerosis involving the fifth sacral segment at the vertebral body through the sacrococcygeal junction in keeping with a fracture. There is also a comminuted insufficiency fracture with mild displacement extending through the right sacral ala and nondisplaced insufficiency fracture along the left sacral ala. Subtle linear lucency involving the posteroinferior left acetabular rim, best seen on image 68 of series 4 and image 77 of series 5 is indeterminate though a hairline nondisplaced acetabular fracture at that level is not excluded. Degenerative spurring at the coccyx. There is soft tissue swelling posteriorly at the lower sacrum and coccyx without deep soft tissue ulcer or drainable fluid collection. No deep soft tissue gas. Marked hypertrophic degenerative change of the pubic symphysis with chondrocalcinosis. Marked degenerative changes of the hips bilaterally more extensive on the right side. Small hip joint effusions. Chronic sequela of calcific tendonitis/enthesopathy most pronounced along the ischial tuberosity and greater trochanters. No soft tissue mass or free fluid in the pelvis. Vascular calcifications. Colonic diverticulosis without definite evidence of acute diverticulitis. IMPRESSION: Comminuted insufficiency fracture of the sacrum involving the sacral ala bilaterally (right greater than left) and extending through the midline at the lower sacrum. Marked demineralization. Questionable hairline nondisplaced fracture of the posteroinferior left acetabulum. No additional fractures identified. Correlation with MRI of the bony pelvis could be considered. Moderate to marked degenerative changes as described. Subcutaneous edema posteriorly without drainable fluid collection. Colonic diverticulosis without evidence of acute diverticulitis. EXAM: CT LUMBAR SPINE FINDINGS: Bones appear demineralized. There is moderate inferior endplate deformity at L2 which is likely related to a Schmorl's node. Otherwise normal vertebral body height and alignment without acute fracture seen. No spondylolisthesis. Bridging osteophytic spurs. Minimal scoliosis. Moderate diffuse degenerative disc and facet disease most apparent at L3/L4 where broad- based disc bulging, ligamentum flavum hypertrophy and facet arthropathy lead to moderate central canal stenosis. There is moderate bilateral neural foraminal narrowing at L4/L5 and L5/S1. Incidental note of a nondisplaced right sacral ala fracture. See also same day CT pelvis report. - - - - - IMPRESSION: 1. Moderate degenerative changes. No acute fracture of the lumbar spine proper. 2. Incidental note of a nondisplaced right sacral ala fracture. EXAM: CHEST FRONTAL VIEW HISTORY: Dyspnea COMPARISON: 02/18/2022 IMPRESSION: Mildly prominent heart size. Mild atherosclerotic disease. No acute infiltrates are seen. No vascular congestion. There is no consolidation, visible pleural fluid or pneumothorax. Bones reveal no acute abnormality. - - - - - Lab Results Last 24 Hours: 02/12/24 05:14 WBC 8.47 RBC 3.89 L Hgb 12.2 Hct 37.4 MCV 96.1 MCH 31.4 H MCHC 32.6 RDW Coeff of Emely 12.9 Plt Count 253 Immature Gran % (Auto) 0.5 Neut % (Auto) 57.3 Lymph % (Auto) 28.0 Wallace % (Auto) 11.7 H Eos % (Auto) 2.1 Baso % (Auto) 0.4 Neut # (Auto) 4.9 Lymph # (Auto) 2.4 Wallace # (Auto) 1.0 Eos # (Auto) 0.2 Baso # (Auto) 0.0 Immature Gran # (Auto) 0.0 Sodium 128.7 L Potassium 4.71 Chloride 89.9 L Carbon Dioxide 32.8 H Anion Gap 10.71 BUN 27.1 H Creatinine 0.95 Estimated GFR (MDRD) 57.00 BUN/Creatinine Ratio 28.52 Glucose 179.6 H Calcium 9.22 Total Bilirubin 0.30 AST 23.9 ALT 18.0 Alkaline Phosphatase 75.2 Total Protein 6.52 Albumin 3.54 Globulin 2.98 Albumin/Globulin Ratio 1.18 Discharge Instructions Discharge Planning: Discharge Planning > [address] Teresa Bryant. Discharge Medications: Medications at Discharge (Home Meds & RX) Discharge Plan Discharge Discharge Orders: Discharge Patient (ONCE); Ordered 02/12/24 Ordered By: OVIDIO SCHWARTZ Activity Restrictions/Additional Instructions: DISCHARGE TO SNF, [facility] DIET: DIABETIC ACTIVITY: TOLERATED, PT/OT DX: SACRAL FRACTURES, HYPONATREMIA LISINOPRIL DOSE AND DILTIAZEM DOSE INCREASED DUE TO HIGH BLOOD PRESSURE SODIUM TABS ORDERED FOR LOW SODIUM, REPEAT BMP IN NEXT 1 WEEK TO DETERMINE FUTURE NEED NORCO DOSE INCREASED TO Q4HRS, DECREASE WHEN ABLE FLEXERIL PRN, DECREASE WHEN ABLE PATIENT REPORTED TODAY HER BUTTOCKS( SACRAL AREA) HURT TO MUCH TO SIT UP IN CHAIR Patient Disposition: TRANSFER SNF Prescriptions: New cyclobenzaprine 10 mg Tablet 5 mg PO TID PRN (Reason: muscle pain) Qty: 14 0RF hydrocodone-acetaminophen 10-325 mg Tablet 1 tab PO Q4H PRN (Reason: moderate pain (scale score 5-6)) Qty: 30 0RF lidocaine [Lidoderm] 5 % Adhesive Patch,Medicated 1 patch transdermal DAILY PRN (Reason: pain (scale score 4-6)) Qty: 15 0RF docusate sodium 100 mg Capsule 100 mg PO BID Qty: 60 0RF bisacodyl 5 mg Tablet,Delayed Release (Dr/Ec) 5 mg PO DAILY PRN (Reason: constipation) Qty: 14 0RF polyethylene glycol 3350 [HealthyLax] 17 gram Powder In Packet 17 g PO DAILY Qty: 30 0RF sodium chloride 1,000 mg Tablet,Soluble 1,000 mg PO TID Qty: 30 0RF lisinopril 40 mg tablet 40 mg PO DAILY Qty: 30 0RF diltiazem HCl 90 mg capsule,extended release 12 hr 90 mg PO BID Qty: 60 0RF Continued (DME) pen needle, diabetic [BD Ultra-Fine Mini Pen Needle] 31 gauge x 3/16" needle See Rx Instructions .ROUTE .COMPLEX Qty: 100 1RF Dose Instruction: DIRECTED Rx Instructions: DIRECTED (DME) OneTouch Ultra Test Strip See Rx Instructions .ROUTE .COMPLEX Qty: 100 5RF Dose Instruction: TEST DAILY Rx Instructions: TEST DAILY E11.9 DM2 levothyroxine 50 mcg tablet See Rx Instructions .ROUTE .COMPLEX Qty: 90 1RF Dose Instruction: TAKE ONE TABLET DAILY Rx Instructions: TAKE ONE TABLET DAILY meclizine 12.5 mg tablet 12.5 mg PO BID PRN (Reason: dizziness) Qty: 60 2RF furosemide 20 mg tablet See Rx Instructions .ROUTE .COMPLEX Qty: 90 1RF Dose Instruction: TAKE ONE TABLET EVERY MORNING FOR EDEMA Rx Instructions: TAKE ONE TABLET EVERY MORNING FOR EDEMA alendronate 70 mg tablet See Rx Instructions .ROUTE .COMPLEX Qty: 12 1RF Dose Instruction: TAKE ONE TABLET WEEKLY PLEASE DRINK LOTS OF WATER WITH MEDICATION Rx Instructions: TAKE ONE TABLET WEEKLY PLEASE DRINK LOTS OF WATER WITH MEDICATION glipizide 10 mg tablet extended release 24hr See Rx Instructions .ROUTE .COMPLEX Qty: 90 1RF Dose Instruction: TAKE ONE TABLET DAILY Rx Instructions: TAKE ONE TABLET DAILY metformin 1,000 mg tablet See Rx Instructions .ROUTE .COMPLEX Qty: 180 1RF Dose Instruction: TAKE ONE TABLET TWICE DAILY Rx Instructions: TAKE ONE TABLET TWICE DAILY simvastatin 20 mg tablet See Rx Instructions .ROUTE .COMPLEX Qty: 90 3RF Dose Instruction: TAKE ONE TABLET DAILY Rx Instructions: TAKE ONE TABLET DAILY primidone 50 mg tablet 25 mg PO BEDTIME Qty: 15 0RF cyanocobalamin (vitamin B-12) 1,000 MCG tablet 1,000 mcg PO DAILY ipratropium bromide 0.02 % solution 1.25 ml inhalation TID PRN (Reason: shortness of breath or wheezing) alprazolam [Xanax] 0.25 mg tablet 0.25 mg PO QDAY PRN (Reason: anxiety) Qty: 30 1RF cholecalciferol (vitamin D3) [Vitamin D3] 25 mcg (1,000 unit) capsule 1,000 unit PO DAILY Qty: 90 1RF Discontinued diltiazem HCl 60 mg tablet See Rx Instructions .ROUTE .COMPLEX Qty: 180 1RF Dose Instruction: TAKE ONE TABLET EVERY TWELVE HOURS Rx Instructions: TAKE ONE TABLET EVERY TWELVE HOURS hydrocodone-acetaminophen [[place]] 1 EACH tablet 1 ea PO TID PRN (Reason: PAIN) lisinopril 20 mg tablet 20 mg PO DAILY Qty: 30 1RF Did you review [place] [employer] for ALL controlled substances?: Yes Discussed opioids are addictive and Narcan is available by prescription or from pharmacy.: No Condition: Stable
[2024-02-12 14:06] VITALS: BP 156/59; PULSE 100; RESP 19; TEMP 97.4
== END 2024-02-12 14:55 | DRG 551 ==
LOC: ED 11:15 → INTOOBSV 16:25 → MEDSURG B 16:25
PROVIDERS: ADMIT Hospitalist; ATTEND Physician Assistant

== ENCOUNTER 2024-03-05 10:56 | Observation (INO) ==
--- NOTE | 2024-03-05 11:08 | ED.PDOC ---
General ED Provider: Dr. JESSIE PARTIDA DO Chief Complaint: Weakness Time Seen by Provider: 03/05/24 11:00 Primary Care Provider: MARIA BRYANT MD What is Opioid Naive?: *Opioid Naive implies the patient is not already taking opioids or not chronically receiving opioids on a daily basis. *PRN dosing is not "usually" associated with tolerance. *Patients are at higher risk of over-sedation and aspiration. What is Opioid Tolerant?: *Opioid Tolerance implies less than the expected response to an opioid. *Acquired tolerance is defined by the patient taking 60mg of oral morphine daily (or equianalgesic dose of another opioid) for 1 week or more. *Often associated with chronic pain. *May take more than usual dose to achieve desired pain control. [facility] Medical History Fracture of coccyx S32.2XXA - Fracture of coccyx, initial encounter for closed fracture (ICD- 10) COVID-19 02/03 U07.1 - COVID-19 (ICD-10) External otitis H60.90 - Unspecified otitis externa, unspecified ear (ICD-10) Bilateral foot pain M79.671 - Pain in right foot (ICD-10) M79.672 - Pain in left foot (ICD-10) Osteoarthritis of right hip M16.11 - Unilateral primary osteoarthritis, right hip (ICD-10) Osteoarthritis of right knee M17.11 - Unilateral primary osteoarthritis, right knee (ICD-10) Hip pain, right M25.551 - Pain in right hip (ICD-10) Hyponatremia E87.1 - Hypo-osmolality and hyponatremia (ICD-10) Weakness of both legs R29.898 - Other symptoms and signs involving the musculoskeletal system (ICD-10) Knee pain, right M25.561 - Pain in right knee (ICD-10) Left hip pain toradol 60 mg IM in clinic today prednisone 20 mg po bid x 1 week-advised may have temp. spike in bs due to this Defer imaging @ this time to pain management. 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 Did not take any treatment. R76.11 - Nonspecific reaction to tuberculin skin test without active tuberculosis (ICD-10) Diabetes mellitus age 48 E11.9 - Type 2 diabetes mellitus without complications (ICD-10) Hip pain M25.559 - PAIN IN UNSPECIFIED HIP (ICD-10) Urinary tract infection N39.0 - URINARY TRACT INFECTION, SITE NOT SPECIFIED (ICD-10) Family History Mother Diabetes, Onset Age: 50 Cancer pancreatic SISTER Diabetes FATHER Cancer prostate Social History Smoking and tobacco status: Former smoker Alcohol intake: never Substance use type: does not use Sarah/protestant: [place] Special sarah needs: No Agree to transfusion: Yes Adopted: No Caregiver/support person: Yes Foster care: No Housing: house Marital status: W / Lives independently: Yes Number of children: 1 Number of grandchildren: 3 Highest education level completed: some college, no degree Financial difficulty paying for basics: somewhat hard service: No retirement: No Current occupational status: retired Pets and animals: Yes (10 dogs, 4 cats) Leisure activites: other History of recent travel: No Sexually active: No Do you think of yourself as: straight/heterosexual Current gender identity: female Seatbelt use: always Helmet use: No Drives intoxicated or rides with intoxicated salesperson driver: No Current diet type/program: regular Well-balanced diet: daily Caffeine: Yes Eating out: 1-3 times/week Reads food labels: seldom or never During the past year weight has: remained stable Water heater temperature set < 120 degrees: Yes Working smoke detector in home: Yes Fire extinguisher in home: Yes Carbon monoxide detector in home: No Firearms in home: No What type of physical activity do you participate in?: walking Physical activity functional status: independent ambulation How many days of moderate to strenuous exercise, like a brisk walk, did you do in the last 7 days: 7 Female Reproductive History Menstrual Hx Hysterectomy: No Hx Tubal Ligation: Yes Course Course 03/05/24 11:15 03/05/24 11:15 Orders, Labs, Meds: Lab Review 03/05/24 03/05/24 11:15 11:30 WBC 10.49 H RBC 3.58 L Hgb 10.9 L Hct 34.7 L MCV 96.9 MCH 30.4 MCHC 31.4 L RDW Coeff of Emely 13.4 Plt Count 394 Immature Gran % (Auto) 1.0 Neut % (Auto) 78.5 H Lymph % (Auto) 11.2 [place]der % (Auto) 8.0 Eos % (Auto) 0.9 Baso % (Auto) 0.4 Neut # (Auto) 8.3 H Lymph # (Auto) 1.2 Kidder # (Auto) 0.8 Eos # (Auto) 0.1 Baso # (Auto) 0.0 Immature Gran # (Auto) 0.1 Sodium 132.7 L Potassium 3.60 Chloride 98.8 Carbon Dioxide 25.8 Anion Gap 11.70 BUN 12.1 Creatinine 0.89 Estimated GFR (MDRD) 61.00 BUN/Creatinine Ratio 13.59 Glucose 338.6 H Calcium 8.56 Total Bilirubin 0.41 AST 22.3 ALT 15.8 Alkaline Phosphatase 166.3 H Total Protein 6.43 Albumin 3.25 L Globulin 3.18 Albumin/Globulin Ratio 1.02 TSH 2.030 Urine Color Yellow Urine Clarity Clear Urine pH 5.5 Ur Specific [place] 1.020 Urine Protein 2+ H Urine Glucose (UA) 2+ H Urine Ketones 1+ H Urine Blood Negative Urine Nitrite Negative Urine Bilirubin Negative Urine Urobilinogen 0.2 Ur Leukocyte Esterase 1+ H Urine Microscopic WBC 10-20 Ur Squamous Epith Cells 5-10 Ur Renal Epithelial Cell 2-5 Urine Bacteria 2+ Orders Category Date Time Status EKG-(ED ONLY) Stat CARDIO 03/05/24 11:03 Completed WRAP [ED JERSON WRAP] .ONCE EMERGENCY 03/05/24 12:42 Active CBC W/ AUTO DIFF Stat LAB 03/05/24 11:15 Completed COMPREHENSIVE METABOLIC PANEL Stat LAB 03/05/24 11:15 Completed THYROID STIMULATING HORMONE Stat LAB 03/05/24 11:15 Completed URINALYSIS C & S IF INDICATED Stat LAB 03/05/24 11:30 Completed URINE CULTURE Stat LAB 03/05/24 11:30 Received Ceftriaxone 1 gm Vial [Rocephin 1 gm Vial] Meds 03/05/24 14:12 Discontinued 2 gm IVP ONCE ONE Cefuroxime Axetil [Ceftin] Meds 03/05/24 12:41 Discontinued 500 mg PO ONCE ONE Sodium Chloride 0.9% [Sodium Chloride] 1,000 ml Meds 03/05/24 11:07 Discontinued IV BOLUS Sodium Chloride 0.9% [Sodium Chloride] 1,000 ml Meds 03/05/24 14:13 Active IV BOLUS ANKLE, RIGHT MIN 3 VIEWS Stat RADS 03/05/24 11:07 Completed CHEST, 1V AP ONLY Stat RADS 03/05/24 11:02 Completed Medications Generic Name Dose Route Start Last Admin Trade Name Freq PRN Reason Stop Dose Admin Sodium Chloride 1,000 mls @ 1,000 mls/hr 03/05/24 14:13 Sodium Chloride IV 03/05/24 15:12 BOLUS ONE Discontinued Medications Generic Name Dose Route Start Last Admin Trade Name Freq PRN Reason Stop Dose Admin Ceftriaxone Sodium 2 gm 03/05/24 14:12 Ceftriaxone 1 Gm Vial IVP 03/05/24 14:13 ONCE ONE Cefuroxime Axetil 500 mg 03/05/24 12:41 03/05/24 12:49 Cefuroxime Axetil 250 Mg Tablet PO 03/05/24 12:42 500 mg ONCE ONE Administration Sodium Chloride 1,000 mls @ 1,000 mls/hr 03/05/24 11:07 03/05/24 13:30 Sodium Chloride IV 03/05/24 12:06 Infused BOLUS ONE Infusion Vital Signs: Temp Pulse Resp BP Pulse Ox 03/05/24 11:01 98.8 F 134 H 18 151/66 H 96 Discharge Plan Discharge Patient Disposition: PLACED OBSERVATION Discharge Problem: Acute UTI, Weakness Prescriptions: No Action (DME) pen needle, diabetic [BD Ultra-Fine Mini Pen Needle] 31 gauge x 3/16" needle See Rx Instructions .ROUTE .COMPLEX Qty: 100 1RF Dose Instruction: DIRECTED Rx Instructions: DIRECTED (DME) OneTouch Ultra Test Strip See Rx Instructions .ROUTE .COMPLEX Qty: 100 5RF Dose Instruction: TEST DAILY Rx Instructions: TEST DAILY E11.9 DM2 levothyroxine 50 mcg tablet See Rx Instructions .ROUTE .COMPLEX Qty: 90 1RF Dose Instruction: TAKE ONE TABLET DAILY Rx Instructions: TAKE ONE TABLET DAILY meclizine 12.5 mg tablet 12.5 mg PO BID PRN (Reason: dizziness) Qty: 60 2RF furosemide 20 mg tablet See Rx Instructions .ROUTE .COMPLEX Qty: 90 1RF Dose Instruction: TAKE ONE TABLET EVERY MORNING FOR EDEMA Rx Instructions: TAKE ONE TABLET EVERY MORNING FOR EDEMA alendronate 70 mg tablet See Rx Instructions .ROUTE .COMPLEX Qty: 12 1RF Dose Instruction: TAKE ONE TABLET WEEKLY PLEASE DRINK LOTS OF WATER WITH MEDICATION Rx Instructions: TAKE ONE TABLET WEEKLY PLEASE DRINK LOTS OF WATER WITH MEDICATION glipizide 10 mg tablet extended release 24hr See Rx Instructions .ROUTE .COMPLEX Qty: 90 1RF Dose Instruction: TAKE ONE TABLET DAILY Rx Instructions: TAKE ONE TABLET DAILY metformin 1,000 mg tablet See Rx Instructions .ROUTE .COMPLEX Qty: 180 1RF Dose Instruction: TAKE ONE TABLET TWICE DAILY Rx Instructions: TAKE ONE TABLET TWICE DAILY simvastatin 20 mg tablet See Rx Instructions .ROUTE .COMPLEX Qty: 90 3RF Dose Instruction: TAKE ONE TABLET DAILY Rx Instructions: TAKE ONE TABLET DAILY primidone 50 mg tablet 25 mg PO BEDTIME Qty: 15 0RF cyanocobalamin (vitamin B-12) 1,000 MCG tablet 1,000 mcg PO DAILY ipratropium bromide 0.02 % solution 1.25 ml inhalation TID PRN (Reason: shortness of breath or wheezing) cyclobenzaprine 10 mg Tablet 5 mg PO TID PRN (Reason: muscle pain) Qty: 14 0RF hydrocodone-acetaminophen 10-325 mg Tablet 1 tab PO Q4H PRN (Reason: moderate pain (scale score 5-6)) Qty: 30 0RF lidocaine [Lidoderm] 5 % Adhesive Patch,Medicated 1 patch transdermal DAILY PRN (Reason: pain (scale score 4-6)) Qty: 15 0RF docusate sodium 100 mg Capsule 100 mg PO BID Qty: 60 0RF bisacodyl 5 mg Tablet,Delayed Release (Dr/Ec) 5 mg PO DAILY PRN (Reason: constipation) Qty: 14 0RF polyethylene glycol 3350 [HealthyLax] 17 gram Powder In Packet 17 g PO DAILY Qty: 30 0RF sodium chloride 1,000 mg Tablet,Soluble 1,000 mg PO TID Qty: 30 0RF lisinopril 40 mg tablet 40 mg PO DAILY Qty: 30 0RF diltiazem HCl 90 mg capsule,extended release 12 hr 90 mg PO BID Qty: 60 0RF alprazolam [Xanax] 0.25 mg tablet 0.25 mg PO QDAY PRN (Reason: anxiety) Qty: 30 1RF lisinopril 20 mg tablet 20 mg PO DAILY diltiazem HCl 60 mg tablet 60 mg PO 2XD cholecalciferol (vitamin D3) [Vitamin D3] 25 mcg (1,000 unit) capsule 1,000 unit PO DAILY Qty: 90 1RF ED Provider: JESSIE PARTIDA
[2024-03-05 11:18] LABS: BASOPHILS % (AUTO) 0.4 % (0.0-3.0); EOSINOPHILS # (AUTO) 0.1 K/ul (0.0-0.7); EOSINOPHILS % (AUTO) 0.9 % (0.0-7.0); HEMATOCRIT 34.7 % (37.0-47.0); HEMOGLOBIN 10.9 g/dl (12.0-16.0); IMMATURE GRANULOCYTE # (AUTO) 0.1 (0.0-1.0); LYMPHOCYTES # (AUTO) 1.2 K/uL (0.60-3.4); LYMPHOCYTES % (AUTO) 11.2 (10.0-50.0); MEAN CORPUSCULAR HEMOGLOBIN 30.4 pg (27.0-31.0); MEAN CORPUSCULAR HGB CONC 31.4 (31.8-35.4); MEAN CORPUSCULAR VOLUME 96.9 fl (81.0-99.0); MONOCYTES # (AUTO) 0.8 K/uL (0.4-2.0); NEUTROPHILS # (AUTO) 8.3 K/ul (2.0-6.9); NEUTROPHILS % (AUTO) 78.5 % (42.2-75.2); PLATELET COUNT 394 10^3/uL (140-440); RDW COEFFICIENT OF VARIATION 13.4 % (11.6-14.8); RED BLOOD COUNT 3.58 10^6/ul (4.20-5.40); WHITE BLOOD COUNT 10.49 K/ul (4.6-10.2)
[2024-03-05] MEDS: SODIUM CHLORIDE 1,000 ML IV ONE ×2 (11:23→14:45)
[2024-03-05 11:31] LABS: ALANINE AMINOTRANSFERASE 15.8 U/L (0-35); ALBUMIN 3.25 g/dL (3.5-5.0); ALKALINE PHOSPHATASE 166.3 U/L (53-141); ASPARTATE AMINO TRANSFERASE 22.3 U/L (14-36); BILIRUBIN,TOTAL 0.41 mg/dL (0.2-1.3); BLOOD UREA NITROGEN 12.1 mg/dL (7-17); CALCIUM 8.56 mg/dL (8.4-10.2); CARBON DIOXIDE 25.8 mmol/L (22-30.0); CHLORIDE 98.8 mmol/L (98-107); CREATININE 0.89 mg/dL (0.60-1.30); POTASSIUM 3.6 mmol/L (3.5-5.1); SODIUM 132.7 mmol/L (134.5-145); TOTAL PROTEIN 6.43 g/dL (6.3-8.2)
[2024-03-05 11:38] LABS: BILIRUBIN,URINE Negative (NEGATIVE); CLARITY,URINE Clear (CLEAR); COLOR,URINE Yellow (YELLOW); GLUCOSE, URINE (UA) 2+ (NEGATIVE); KETONES,URINE 1+ (NEGATIVE); LEUKOCYTE ESTERASE ,URINE 1+ (NEGATIVE); NITRITE,URINE Negative (NEGATIVE); PH,URINE 5.5 (5-9); PROTEIN,URINE 2+ (NEGATIVE); URINE, BLOOD Negative (NEGATIVE); UROBILINOGEN,URINE 0.2 (0.2)
[2024-03-05 11:43] LABS: BACTERIA,URINE 2+ (NOT PRESENT)
[2024-03-05 11:48] LABS: GLUCOSE 338.6 mg/dL (74-106)
[2024-03-05 12:01] LABS: THYROID STIMULATING HORMONE 2.03 uIU/L (0.465-4.68)
--- NOTE | 2024-03-05 12:01 | DI ---
EXAM: CHEST RADIOGRAPH TECHNIQUE: Single frontal chest radiograph. HISTORY: Weakness COMPARISON: 02/06/2024 FINDINGS: The lungs are clear. The heart size is normal. Bilateral shoulder arthropathy. There is resection of distal right clavicle. IMPRESSION: 1. No acute disease.
--- NOTE | 2024-03-05 12:02 | DI ---
EXAM: RIGHT ANKLE RADIOGRAPH TECHNIQUE: 3 views of the right ankle HISTORY: Pain COMPARISON: None. FINDINGS: No acute fracture or dislocation. There is heterotopic ossification at the tip of the distal fibula compatible with remote injury. Soft tissue prominence about the ankle. Moderate tibiotalar osteoart hritis. Irregular contour /erosions of the anterior aspect of the distal tibia is unchanged. No wid ening of the syndesmosis or ankle mortise on nonweightbearing views. Plantar calcaneal spur. IMPRESSION: - No acute osseous abnormality identified. - Sequelae of remote lateral ankle injury. - Moderate tibiotalar osteoarthritis an unchanged irregular contour/erosions of the anterior aspect o f the distal tibia.
[2024-03-05] MEDS: CEFTIN PO ONE (12:49)
[2024-03-05] MEDS ORDERED: ROCEPHIN 1 GM VIAL IVP ONE (14:12)
[2024-03-05 14:45] LABS: SARS COV-2 RNA RAPID NAAT NEGATIVE (NEGATIVE)
[2024-03-05] MEDS: ROCEPHIN 1 GM/50 ML D5W 1 GM/50 ML BAG IV ONE (14:46)
[2024-03-05] MEDS ORDERED: TYLENOL PO PRN (15:45)
--- NOTE | 2024-03-05 15:49 | PCM ---
Date of Service Date Seen by Provider: 03/05/24 Admit Day/Time Admission Date: 03/05/24 Reason for Admission Chief Complaint: WEAKNESS, UTI Hospital Provider Hospital Provider: KATHY WOMACK, [facility] Primary Care Physician Primary Care Physician: MARIA RIVERS MD History of Present Illness History of Present Illness: 78 yo female presented to the ER from home following frequent falls/weakness. Patient was recently admitted at this facility for bilateral sacral fractures and discharged to [facility]. She ran out of days on her insurance at [facility] and was discharged home Monday. Since then, she has fallen multiple times and only has friends to care for her. Found to have multiple skin tears with draining wound to L lower leg. Also found to have UTI. Denies urinary symptoms. Reports weakness and inability to perform ADLs without assistance. Admitted med/surg observation. Case Discussed With Case Discussed With: Patient's case was discussed with the ER Physicians, Dr. Ramon. [facility] Medical History Fracture of coccyx S32.2XXA - Fracture of coccyx, initial encounter for closed fracture (ICD- 10) COVID-19 02/03 U07.1 - COVID-19 (ICD-10) External otitis H60.90 - Unspecified otitis externa, unspecified ear (ICD-10) Bilateral foot pain M79.671 - Pain in right foot (ICD-10) M79.672 - Pain in left foot (ICD-10) Osteoarthritis of right hip M16.11 - Unilateral primary osteoarthritis, right hip (ICD-10) Osteoarthritis of right knee M17.11 - Unilateral primary osteoarthritis, right knee (ICD-10) Hip pain, right M25.551 - Pain in right hip (ICD-10) Hyponatremia E87.1 - Hypo-osmolality and hyponatremia (ICD-10) Weakness of both legs R29.898 - Other symptoms and signs involving the musculoskeletal system (ICD-10) Knee pain, right M25.561 - Pain in right knee (ICD-10) Left hip pain toradol 60 mg IM in clinic today prednisone 20 mg po bid x 1 week-advised may have temp. spike in bs due to this Defer imaging @ this time to pain management. 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 Did not take any treatment. R76.11 - Nonspecific reaction to tuberculin skin test without active tube rculosis (ICD-10) Diabetes mellitus age 48 E11.9 - Type 2 diabetes mellitus without complications (ICD-10) Hip pain M25.559 - PAIN IN UNSPECIFIED HIP (ICD-10) Urinary tract infection N39.0 - URINARY TRACT INFECTION, SITE NOT SPECIFIED (ICD-10) Family History Mother Diabetes, Onset Age: 50 Cancer pancreatic SISTER Diabetes FATHER Cancer prostate Social History (Updated 03/05/24 @ 16:08 by SAUL RYA RN) Smoking and tobacco status: Former smoker Alcohol intake: never Substance use type: does not use Sarah/moravian: Rito Special sarah needs: No Agree to transfusion: Yes Adopted: No Caregiver/support person: Yes Foster care: No Housing: house Marital status: W / Lives independently: Yes Number of children: 1 Number of grandchildren: 3 Highest education level completed: some college, no degree Financial difficulty paying for basics: somewhat hard service: No [employer]: No Current occupational status: retired Pets and animals: Yes (10 dogs, 4 cats) Leisure activites: other History of recent travel: No Sexually active: No Do you think of yourself as: straight/heterosexual Current gender identity: female Seatbelt use: always Helmet use: No Drives intoxicated or rides with intoxicated patient transportation driver: No Current diet type/program: regular Well-balanced diet: daily Caffeine: Yes Eating out: 1-3 times/week Reads food labels: seldom or never During the past year weight has: remained stable Water heater temperature set < 120 degrees: Yes Working smoke detector in home: Yes Fire extinguisher in home: Yes Carbon monoxide detector in home: No Firearms in home: No What type of physical activity do you participate in?: walking Physical activity functional status: independent ambulation How many days of moderate to strenuous exercise, like a brisk walk, did you do in the last 7 days: 7 Allergies Allergies Allergy/AdvReac Type Severity Reaction Status Date / Time sulfamethoxazole AdvReac ABD PAIN Verified 03/05/24 10:59 [From Bactrim] trimethoprim [From Bactrim] AdvReac ABD PAINS Verified 03/05/24 10:59 instant potatoes Allergy Severe swelling, Uncoded 03/05/24 10:59 rash PAPER TAPE AdvReac Mild PULLS SKIN Uncoded 03/05/24 10:59 OFF Current Medications Home Medications cyanocobalamin (vitamin B-12) 1,000 mcg tablet 1,000 mcg PO DAILY 12/12/15 [History Confirmed 03/05/24 Last Taken 02/06/24 08:00 1,000 mcg] cholecalciferol (vitamin D3) 25 mcg (1,000 unit) capsule (Vitamin D3) 1,000 unit PO DAILY #90 caps 12/08/20 [Rx Confirmed 03/05/24 Last Taken 02/06/24 08:00 1,000 unit] pen needle, diabetic 31 gauge x 3/16" (BD Ultra-Fine Mini Pen Needle) #100 inserts 03/14/23 [Rx Confirmed 03/05/24 Last Taken Unknown] blood sugar diagnostic (OneTouch Ultra Test strips) #100 ea 03/27/23 [Rx Confirmed 03/05/24 Last Taken Unknown] levothyroxine 50 mcg tablet See Rx Instructions .Route .COMPLEX #90 tabs 05/17/23 [Rx Confirmed 03/05/24 Last Taken 02/06/24 06:00 50] meclizine 12.5 mg tablet 12.5 mg PO BID PRN dizziness #60 tabs 08/14/23 [Rx Confirmed 03/05/24 Last Taken 02/06/24 08:00 12.5 mg] furosemide 20 mg tablet See Rx Instructions .Route .COMPLEX #90 tabs 09/12/23 [Rx Confirmed 03/05/24 Last Taken 02/06/24 08:00 20] alendronate 70 mg tablet See Rx Instructions .Route .COMPLEX #12 tabs 09/28/23 [Rx Confirmed 03/05/24 Last Taken 01/31/24 06:00 70] glipizide 10 mg tablet, extended release 24 hr See Rx Instructions .Route .COMPLEX #90 tabs 11/02/23 [Rx Confirmed 03/05/24 Last Taken 02/06/24 08:00 10] metformin 1,000 mg tablet See Rx Instructions .Route .COMPLEX #180 tabs 12/19/23 [Rx Confirmed 03/05/24 Last Taken 02/06/24 08:00 1,000] simvastatin 20 mg tablet See Rx Instructions .Route .COMPLEX #90 tabs 01/01/24 [Rx Confirmed 03/05/24 Last Taken 02/06/24 08:00 20] primidone 50 mg tablet 25 mg (1/2 x 50 mg) PO BEDTIME #15 tabs 01/29/24 [Rx Confirmed 03/05/24 Last Taken 02/05/24 21:00 25 mg] ipratropium bromide 0.02 % solution for inhalation 1.25 ml inhalation TID PRN shortness of breath or wheezing 02/06/24 [History Confirmed 03/05/24 Last Taken Unknown] alprazolam 0.25 mg tablet (Xanax) 0.25 mg PO QDAY PRN anxiety #30 tabs 02/12/24 [Rx Confirmed 03/05/24 Last Taken Unknown] bisacodyl 5 mg tablet,delayed release 5 mg PO DAILY PRN constipation #14 tabs 02/12/24 [Rx Confirmed 03/05/24 Last Taken Unknown] cyclobenzaprine 10 mg tablet 5 mg (1/2 x 10 mg) PO TID PRN muscle pain #14 tabs 02/12/24 [Rx Confirmed 03/05/24 Last Taken Unknown] diltiazem HCl 90 mg capsule,extended release 12 hr 90 mg PO BID #60 caps 02/12/24 [Rx Confirmed 03/05/24 Last Taken Unknown] docusate sodium 100 mg capsule 100 mg PO BID #60 caps 02/12/24 [Rx Confirmed 03/05/24 Last Taken Unknown] hydrocodone 10 mg-acetaminophen 325 mg tablet 1 tab PO Q4H PRN moderate pain (scale score 5-6) #30 tabs 02/12/24 [Rx Confirmed 03/05/24 Last Taken Unknown] lidocaine 5 % topical patch (Lidoderm) 1 patch transdermal DAILY PRN pain (scale score 4-6) #15 ea 02/12/24 [Rx Confirmed 03/05/24 Last Taken Unknown] lisinopril 40 mg tablet 40 mg PO DAILY #30 tabs 02/12/24 [Rx Confirmed 03/05/24 Last Taken Unknown] polyethylene glycol 3350 17 gram oral powder packet (HealthyLax) 17 g PO DAILY #30 ea 02/12/24 [Rx Confirmed 03/05/24 Last Taken Unknown] sodium chloride 1,000 mg soluble tablet 1,000 mg PO TID #30 tabs 02/12/24 [Rx Confirmed 03/05/24 Last Taken Unknown] diltiazem HCl 60 mg tablet 60 mg PO 2XD 03/05/24 [History Confirmed 03/05/24 Last Taken Unknown] lisinopril 20 mg tablet 20 mg PO DAILY 03/05/24 [History Confirmed 03/05/24 Last Taken Unknown] Home Acetaminophen (Acetaminophen 325 Mg Tablet) 650 mg PO Q4H PRN PRN Reason: Mild Pain CEFTRIAXONE/D5W 1 GM PREMIX (Rocephin 1 Gm/50 Ml D5w) 1 gm in 50 mls @ 100 mls/hr IV DAILY TOM Stop: 03/09/24 08:59 Insulin Human Regular (Insulin Regular, Human 100 Unit/Ml (10ml) Vial) 0 unit SUBCUT PRN PRN; Protocol PRN Reason: Hyperglycemia Discontinued Medications Cefuroxime Axetil (Cefuroxime Axetil 250 Mg Tablet) 500 mg PO ONCE ONE Stop: 03/05/24 12:42 Last Admin: 03/05/24 12:49 Dose: 500 mg Sodium Chloride (Sodium Chloride) 1,000 mls @ 1,000 mls/hr IV BOLUS ONE Stop: 03/05/24 12:06 Last Infusion: 03/05/24 13:30 Dose: Infused Sodium Chloride (Sodium Chloride) 1,000 mls @ 1,000 mls/hr IV BOLUS ONE Stop: 03/05/24 15:12 Last Admin: 03/05/24 14:45 Dose: 1,000 mls/hr CEFTRIAXONE/D5W 1 GM PREMIX (Rocephin 1 Gm/50 Ml D5w) 1 gm in 50 mls @ 100 mls/hr IV ONCE ONE Stop: 03/05/24 14:51 Last Admin: 03/05/24 14:46 Dose: 100 mls/hr Opioid Naive vs. Tolerant Does Patient Take Opioids?: No Is Patient Opioid Naive?: Yes What is Opioid Naive?: *Opioid Naive implies the patient is not already taking opioids or not chronically receiving opioids on a daily basis. *PRN dosing is not "usually" associated with tolerance. *Patients are at higher risk of over-sedation and aspiration. Is Patient Opioid Tolerant?: No What is Opioid Tolerant?: *Opioid Tolerance implies less than the expected response to an opioid. *Acquired tolerance is defined by the patient taking 60mg of oral morphine daily (or equianalgesic dose of another opioid) for 1 week or more. *Often associated with chronic pain. *May take more than usual dose to achieve desired pain control. Review of Systems Constitutional: Reports Weakness Head: Reports Normocephalic Eyes: Reports No symptoms Ears: Reports No symptoms Nose: Reports No symptoms Mouth: Reports No symptoms Throat: Reports No symptoms Cardiovascular: Reports No symptoms Respiratory: Reports No symptoms Gastrointestinal: Reports No symptoms Genitourinary: Reports No Symptoms Musculoskeletal: Reports No symptoms Dermatologic: Reports Other (scattered skin tears and bruising to extremities) Endocrine: Reports No symptoms Hematology: Reports No symptoms Immunology: Reports No symptoms Neurological: Reports No symptoms Psychiatric: Reports No symptoms Physical examination Most Recent Vital Signs: Most Recent Vital Signs Temperature 98.8 F 03/05/24 11:01 Temperature Source Infrared 03/05/24 11:01 Pulse Rate 134 H 03/05/24 11:01 Respiratory Rate 18 03/05/24 11:01 Blood Pressure 151/66 H 03/05/24 11:01 O2 Sat by Pulse Oximetry 96 03/05/24 11:01 Height 5 ft 2 in 03/05/24 11:01 Weight 86.3 kg 03/05/24 11:01 Telemetry Heart Rate 95 11/03/17 07:00 Appearance: Positive No Apparent Distress and Alert and Oriented x3 Skin: Positive Warm and Other (Large skin tear to L upper forearm with active bleeding and clots present; 0.5 inch wound to L lower leg mid calf with mild erythema and purulent drainage) HEENT: Positive Normocephalic and PERRLA Neck: Positive Supple and Midline Trachea Chest/Lungs: Positive Symmetrical With Equal Breath Sounds, Clear to Auscultation Bilaterally and Good Air Movement all 4 Lung Lr Heart: Positive RRR and Pulses Normal GI/: Positive Soft, Nontender, Bowel Sounds Normal and No Distention Musculoskeletal: Positive Not Examined Extremities: Positive Intact Peripheral Pulses, Stable Joints Without Laxity and Good ROM in All Joints Neurological: Positive Sensation Intact, Motor intact, Alert, Oriented and Other (generalized weakness) Labs This Visit Labs This Visit: Labs This Visit 03/05/24 03/05/24 03/05/24 11:15 11:30 14:27 WBC 10.49 H RBC 3.58 L Hgb 10.9 L Hct 34.7 L MCV 96.9 MCH 30.4 MCHC 31.4 L RDW Coeff of Emely 13.4 Plt Count 394 Immature Gran % (Auto) 1.0 Neut % (Auto) 78.5 H Lymph % (Auto) 11.2 [place] % (Auto) 8.0 Eos % (Auto) 0.9 Baso % (Auto) 0.4 Neut # (Auto) 8.3 H Lymph # (Auto) 1.2 [place] # (Auto) 0.8 Eos # (Auto) 0.1 Baso # (Auto) 0.0 Immature Gran # (Auto) 0.1 Sodium 132.7 L Potassium 3.60 Chloride 98.8 Carbon Dioxide 25.8 Anion Gap 11.70 BUN 12.1 Creatinine 0.89 Estimated GFR (MDRD) 61.00 BUN/Creatinine Ratio 13.59 Glucose 338.6 H Calcium 8.56 Total Bilirubin 0.41 AST 22.3 ALT 15.8 Alkaline Phosphatase 166.3 H Total Protein 6.43 Albumin 3.25 L Globulin 3.18 Albumin/Globulin Ratio 1.02 TSH 2.030 Urine Color Yellow Urine Clarity Clear Urine pH 5.5 Ur Specific [place] 1.020 Urine Protein 2+ H Urine Glucose (UA) 2+ H Urine Ketones 1+ H Urine Blood Negative Urine Nitrite Negative Urine Bilirubin Negative Urine Urobilinogen 0.2 Ur Leukocyte Esterase 1+ H Urine Microscopic WBC 10-20 Ur Squamous Epith Cells 5-10 Ur Renal Epithelial Cell 2-5 Urine Bacteria 2+ SARS CoV-2 RNA Rapid GD Negative Imaging Imaging: EXAM: CHEST RADIOGRAPH TECHNIQUE: Single frontal chest radiograph. HISTORY: Weakness COMPARISON: 02/06/2024 FINDINGS: The lungs are clear. The heart size is normal. Bilateral shoulder arthropathy. There is resection of distal right clavicle. IMPRESSION: 1. No acute disease. EXAM: RIGHT ANKLE RADIOGRAPH FINDINGS: No acute fracture or dislocation. There is heterotopic ossification at the tip of the distal fibula compatible with remote injury. Soft tissue prominence about the ankle. Moderate tibiotalar osteoarthritis. Irregular contour /erosions of the anterior aspect of the distal tibia is unchanged. No widening of the syndesmosis or ankle mortise on nonweightbearing views. Plantar calcaneal spur. IMPRESSION: - No acute osseous abnormality identified. - Sequelae of remote lateral ankle injury. - Moderate tibiotalar osteoarthritis an unchanged irregular contour/erosions of the anterior aspect of the distal tibia. Review Statement Review Statement: I have independently reviewed and interpreted the labs/EKGs/imaging that were ordered by the ER provider. I have reviewed all outside records that are available currently in our EMR including imaging/notes/labs from previous visits. Plan Plan: 1. UTI - culture pending, rocephin 1G Q24H 2. Wound to L leg - wound culture pending, rocephin 3. Afib - chronic, stable, continue home medications 4. DM2 - ADA diet, accuchecks qid with ssi, hold oral agents 5. COPD - chronic, not in exacerbation, monitor 6. Unsafe living conditions - return to [facility] upon discharge DVT Prophylaxis: SCD Time Spent: Greater than 80 minutes spent with patient, 50% of the time spent with this patient was devoted to counseling and coordination of care. [facility] minutes spent discussing advance care planning. Disposition: Admit to: Med/Surg Observation DNI, CPR only Discussed Plan of Care with Dr. Rivers. Medications Medication Orders: Medications Ordered Category Date Time Status Acetaminophen [Tylenol] Meds 03/05/24 15:45 Ordered 650 mg PO Q4H PRN Ceftriaxone/D5w 1 gm Premix [Rocephin 1 gm/50 ml D5w] Meds 03/06/24 09:00 Ordered 1 gm in 50 ml IV DAILY Insulin Regular, Human [Humulin R (10Ml)] Meds 03/05/24 15:45 Ordered See Protocol SUBCUT PRN PRN
[2024-03-05 16:23] VITALS: BMI 36.0
[2024-03-05] MEDS ORDERED: ATROVENT 0.02% NEB NEB PRN (16:50)
[2024-03-05] MEDS ORDERED: LIDODERM 5 % PATCH TP PRN (16:51)
[2024-03-05] MEDS ORDERED: XANAX PO PRN (16:51)
[2024-03-05] MEDS ORDERED: ANTIVERT PO PRN (16:51)
[2024-03-05] MEDS: ZESTRIL PO SCH (17:34)
[2024-03-05] MEDS: CARDIZEM PO SCH ×3 (17:37→20:05)
[2024-03-05] MEDS: NORCO 10-325 PO PRN (18:07)
[2024-03-05] MEDS: HUMULIN R (10ML) SUBCUT PRN (20:03)
[2024-03-05] MEDS: COLACE PO SCH (20:05)
[2024-03-05] MEDS: FLEXERIL PO PRN (20:05)
[2024-03-05] MEDS: DULCOLAX PO PRN (20:05)
[2024-03-05] MEDS: MYSOLINE PO SCH (20:05)
[2024-03-05] MEDS: SODIUM CHLORIDE PO SCH (20:06)
[2024-03-06] MEDS: SYNTHROID PO SCH (05:31)
[2024-03-06 05:40] LABS: BASOPHILS % (AUTO) 0.3 % (0.0-3.0); EOSINOPHILS # (AUTO) 0.1 K/ul (0.0-0.7); EOSINOPHILS % (AUTO) 1.5 % (0.0-7.0); HEMATOCRIT 32.7 % (37.0-47.0); HEMOGLOBIN 10.1 g/dl (12.0-16.0); IMMATURE GRANULOCYTE # (AUTO) 0.1 (0.0-1.0); IMMATURE GRANULOCYTE % (AUTO) 0.9 % (0.0-5.0); LYMPHOCYTES # (AUTO) 2.2 K/uL (0.60-3.4); MEAN CORPUSCULAR HEMOGLOBIN 30.1 pg (27.0-31.0); MEAN CORPUSCULAR HGB CONC 30.9 (31.8-35.4); MEAN CORPUSCULAR VOLUME 97.3 fl (81.0-99.0); MONOCYTES # (AUTO) 1.2 K/uL (0.4-2.0); MONOCYTES % (AUTO) 12.6 (0-10); NEUTROPHILS # (AUTO) 5.8 K/ul (2.0-6.9); NEUTROPHILS % (AUTO) 61.7 % (42.2-75.2); PLATELET COUNT 376 10^3/uL (140-440); RDW COEFFICIENT OF VARIATION 13.7 % (11.6-14.8); RED BLOOD COUNT 3.36 10^6/ul (4.20-5.40); WHITE BLOOD COUNT 9.35 K/ul (4.6-10.2)
[2024-03-06 05:55] LABS: ALANINE AMINOTRANSFERASE 13.1 U/L (0-35); ALBUMIN 3.09 g/dL (3.5-5.0); ALKALINE PHOSPHATASE 148.8 U/L (53-141); ASPARTATE AMINO TRANSFERASE 20.3 U/L (14-36); BILIRUBIN,TOTAL 0.33 mg/dL (0.2-1.3); BLOOD UREA NITROGEN 9.5 mg/dL (7-17); CALCIUM 8.38 mg/dL (8.4-10.2); CARBON DIOXIDE 31.3 mmol/L (22-30.0); CHLORIDE 97.4 mmol/L (98-107); CREATININE 0.78 mg/dL (0.60-1.30); GLUCOSE 110.2 mg/dL (74-106); POTASSIUM 3.89 mmol/L (3.5-5.1); SODIUM 133.2 mmol/L (134.5-145); TOTAL PROTEIN 6.38 g/dL (6.3-8.2)
[2024-03-06] MEDS: MIRALAX PO SCH (08:40)
[2024-03-06] MEDS: ZOCOR PO SCH (08:40)
[2024-03-06] MEDS: ROCEPHIN 1 GM/50 ML D5W 1 GM/50 ML BAG IV SCH (08:40)
[2024-03-06] MEDS: LASIX TAB PO SCH (08:40)
[2024-03-06] MEDS ORDERED: SYNTHROID PO SCH (09:00)
[2024-03-06] MEDS ORDERED: ATROVENT 0.02% NEB NEB PRN (09:54)
[2024-03-06 10:38] VITALS: BP 138/50; PULSE 115; RESP 20; TEMP 97.2
[2024-03-06] MEDS: CARDIZEM PO ONE (11:51)
[2024-03-06] MEDS: CARDIZEM ONE ×2 (12:35)
[2024-03-06] MEDS: ZESTRIL ONE (12:35)
--- NOTE | 2024-03-06 13:08 | DCSUM ---
Admission Date Admission Date: 03/05/24 Discharge Date Discharge Date: 03/06/24 Admission Diagnosis Admission Diagnosis: 1. UTI 2. Wound to L leg 3. Afib 4. DM2 5. COPD 6. Unsafe living conditions Discharge Diagnosis Discharge Diagnosis: 1. UTI - Ruled out, culture showing no growth 2. Cellulitis to L leg - gram neg rods on culture, d/c with keflex 3. Afib - Rate uncontrolled, increased cardizem 4. DM2 - chronic, stable 5. COPD - chronic, stable 6. Unsafe living conditions - return to [facility] upon discharge Hospital Provider Hospital Provider[facility], [facility] Phys[facility] Primary Care Physician: MARIA BRYANT MD Summary of History and Physical Summary of History and Physical: 78 yo female presented to the ER from home following frequent falls/weakness. Patient was recently admitted at this facility for bilateral sacral fractures and discharged to [facility]. She ran out of days on her insurance at [facility] and was discharged home Monday. Since then, she has fallen multiple times and only has friends to care for her. Found to have multiple skin tears with draining wound to L lower leg. Also found to have UTI. Denies urinary symptoms. Reports weakness and inability to perform ADLs without assistance. Admitted med/surg observation. Hospital Course Subjective: During stay, urine culture showed no growth. Wound to L leg showing gram negative rods on culture. Received rocephin while awaiting sensitivity. D/c with Keflex. Will contact [facility] if antibiotic needs adjusted. HR has been running 120s-130s. Increased dose of cardizem and down to 100s in SR. Asymptomatic. Rx for cardizem CD 120 mg daily sent. No further changes to home medications DC to [facility] Appearance: Pleasant, No Apparent Distress and Alert HEENT: MMM, Supple and No JVD CVS: No Murmur and No Rubs Abdomen: Soft, Non-Tender and No Distention Respiratory: No Dyspnea Extremities: No Edema Vital Signs: Most Recent Vital Signs Temperature 97.2 F L 03/06/24 10:00 Temperature Source Temporal Artery Scan 03/06/24 10:00 Temperature Source Infrared 03/05/24 11:01 Pulse Rate 115 H 03/06/24 10:00 Respiratory Rate 20 03/06/24 10:00 Blood Pressure 138/50 L 03/06/24 10:00 Blood Pressure Mean 79 03/06/24 10:00 Blood Pressure Left Arm 189/79 03/05/24 15:50 Blood Pressure Location Right Arm 03/06/24 10:00 Blood Pressure Position Sitting 03/06/24 10:00 O2 Sat by Pulse Oximetry 95 03/06/24 10:00 Oxygen Delivery Method Room Air 03/06/24 12:00 Height 5 ft 2 in 03/05/24 15:50 Weight 89.3 kg 03/05/24 15:50 Telemetry Type Remote Telemetry 03/06/24 07:00 Telemetry Monitoring Continues 03/06/24 07:00 Telemetry Heart Rate 104 H 03/06/24 07:00 EKG WI Interval 0.18 03/06/24 07:00 EKG QRS Interval 0.06 03/06/24 07:[address] 03/06/24 07:00 Imaging: EXAM: CHEST RADIOGRAPH FINDINGS: The lungs are clear. The heart size is normal. Bilateral shoulder arthropathy. There is resection of distal right clavicle. IMPRESSION: 1. No acute disease. Lab Results Last 24 Hours: 03/06/24 03/05/24 05:04 14:27 WBC 9.35 RBC 3.36 L Hgb 10.1 L Hct 32.7 L MCV 97.3 MCH 30.1 MCHC 30.9 L RDW Coeff of Emely 13.7 Plt Count 376 Immature Gran % (Auto) 0.9 Neut % (Auto) 61.7 Lymph % (Auto) 23.0 [place] % (Auto) 12.6 H Eos % (Auto) 1.5 Baso % (Auto) 0.3 Neut # (Auto) 5.8 Lymph # (Auto) 2.2 [place] # (Auto) 1.2 Eos # (Auto) 0.1 Baso # (Auto) 0.0 Immature Gran # (Auto) 0.1 Sodium 133.2 L Potassium 3.89 Chloride 97.4 L Carbon Dioxide 31.3 H Anion Gap 8.39 BUN 9.5 Creatinine 0.78 Estimated GFR (MDRD) 71.00 BUN/Creatinine Ratio 12.17 Glucose 110.2 H D Calcium 8.38 L Total Bilirubin 0.33 AST 20.3 ALT 13.1 Alkaline Phosphatase 148.8 H Total Protein 6.38 Albumin 3.09 L Globulin 3.29 Albumin/Globulin Ratio 0.93 SARS CoV-2 RNA Rapid DG Negative Discharge Instructions Discharge Planning: Discharge Planning > 40 minutes If patient is discharged with left ventricular systolic dysfunction: na Discharged with a beta monica? [] If no, why not? [] Discharged with an zack/arb? [] If no, why not? [] DIAGNOSIS: CELLULITIS DIET: DIABETIC ACTIVITY: TOLERATED FOLLOW-UP WITH PCP NEXT WEEK MEDICATIONS: PRINTED NEW RX KEFLEX 500 MG X 5 DAYS, START TOMORROW CARDIZEM CD 120 MG DAILY Discharge Medications: Medications at Discharge (Home Meds & RX) cyanocobalamin (vitamin B-12) 1,000 mcg tablet 1,000 mcg PO DAILY 12/12/15 cholecalciferol (vitamin D3) 25 mcg (1,000 unit) capsule (Vitamin D3) 1,000 unit PO DAILY #90 caps 12/08/20 pen needle, diabetic 31 gauge x 3/16" (BD Ultra-Fine Mini Pen Needle) #100 inserts 03/14/23 blood sugar diagnostic (Bplatsuch Ultra Test strips) #100 ea 03/27/23 levothyroxine 50 mcg tablet See Rx Instructions .Route .COMPLEX #90 tabs 05/17/23 meclizine 12.5 mg tablet 12.5 mg PO BID PRN dizziness #60 tabs 08/14/23 furosemide 20 mg tablet See Rx Instructions .Route .COMPLEX #90 tabs 09/12/23 alendronate 70 mg tablet See Rx Instructions .Route .COMPLEX #12 tabs 09/28/23 glipizide 10 mg tablet, extended release 24 hr See Rx Instructions .Route .COMPLEX #90 tabs 11/02/23 metformin 1,000 mg tablet See Rx Instructions .Route .COMPLEX #180 tabs 12/19/23 simvastatin 20 mg tablet See Rx Instructions .Route .COMPLEX #90 tabs 01/01/24 primidone 50 mg tablet 25 mg (1/2 x 50 mg) PO BEDTIME #15 tabs 01/29/24 ipratropium bromide 0.02 % solution for inhalation 2.5 ml inhalation TID PRN shortness of breath or wheezing 02/06/24 alprazolam 0.25 mg tablet (Xanax) 0.25 mg PO QDAY PRN anxiety #30 tabs 02/12/24 bisacodyl 5 mg tablet,delayed release 5 mg PO DAILY PRN constipation #14 tabs 02/12/24 cyclobenzaprine 10 mg tablet 5 mg (1/2 x 10 mg) PO TID PRN muscle pain #14 tabs 02/12/24 diltiazem HCl 90 mg capsule,extended release 12 hr 90 mg PO BID #60 caps 02/12/24 docusate sodium 100 mg capsule 100 mg PO BID #60 caps 02/12/24 hydrocodone 10 mg-acetaminophen 325 mg tablet 1 tab PO Q4H PRN moderate pain (scale score 5-6) #30 tabs 02/12/24 lidocaine 5 % topical patch (Lidoderm) 1 patch transdermal DAILY PRN pain (scale score 4-6) #15 ea 02/12/24 lisinopril 40 mg tablet 40 mg PO DAILY #30 tabs 02/12/24 polyethylene glycol 3350 17 gram oral powder packet (HealthyLax) 17 g PO DAILY #30 ea 02/12/24 sodium chloride 1,000 mg soluble tablet 1,000 mg PO TID #30 tabs 02/12/24 diltiazem HCl 60 mg tablet 60 mg PO 2XD 03/05/24 lisinopril 20 mg tablet 20 mg PO DAILY 03/05/24 Discharge Plan Discharge Discharge Orders: Discharge Patient (ONCE); Ordered 03/06/24 Ordered By: MICHELLE REID Activity Restrictions/Additional Instructions: DIAGNOSIS: CELLULITIS DIET: DIABETIC ACTIVITY: TOLERATED FOLLOW-UP WITH PCP NEXT WEEK MEDICATIONS: PRINTED NEW RX Instructions: Cellulitis (GEN) Patient Disposition: TRANSFER [facility] Prescriptions: New cephalexin 500 mg capsule 500 mg PO BID Qty: 10 0RF diltiazem HCl [Cardizem CD] 120 mg capsule,extended release 24hr 120 mg PO DAILY Qty: 30 0RF Continued levothyroxine 50 mcg tablet See Rx Instructions .ROUTE .COMPLEX Qty: 90 1RF Dose Instruction: TAKE ONE TABLET DAILY Rx Instructions: TAKE ONE TABLET DAILY meclizine 12.5 mg tablet 12.5 mg PO BID PRN (Reason: dizziness) Qty: 60 2RF furosemide 20 mg tablet See Rx Instructions .ROUTE .COMPLEX Qty: 90 1RF Dose Instruction: TAKE ONE TABLET EVERY MORNING FOR EDEMA Rx Instructions: TAKE ONE TABLET EVERY MORNING FOR EDEMA alendronate 70 mg tablet See Rx Instructions .ROUTE .COMPLEX Qty: 12 1RF Dose Instruction: TAKE ONE TABLET WEEKLY PLEASE DRINK LOTS OF WATER WITH MEDICATION Rx Instructions: TAKE ONE TABLET WEEKLY PLEASE DRINK LOTS OF WATER WITH MEDICATION glipizide 10 mg tablet extended release 24hr See Rx Instructions .ROUTE .COMPLEX Qty: 90 1RF Dose Instruction: TAKE ONE TABLET DAILY Rx Instructions: TAKE ONE TABLET DAILY metformin 1,000 mg tablet See Rx Instructions .ROUTE .COMPLEX Qty: 180 1RF Dose Instruction: TAKE ONE TABLET TWICE DAILY Rx Instructions: TAKE ONE TABLET TWICE DAILY simvastatin 20 mg tablet See Rx Instructions .ROUTE .COMPLEX Qty: 90 3RF Dose Instruction: TAKE ONE TABLET DAILY Rx Instructions: TAKE ONE TABLET DAILY primidone 50 mg tablet 25 mg PO BEDTIME Qty: 15 0RF cyanocobalamin (vitamin B-12) 1,000 MCG tablet 1,000 mcg PO DAILY ipratropium bromide 0.02 % solution 2.5 ml inhalation TID PRN (Reason: shortness of breath or wheezing) cyclobenzaprine 10 mg Tablet 5 mg PO TID PRN (Reason: muscle pain) Qty: 14 0RF hydrocodone-acetaminophen 10-325 mg Tablet 1 tab PO Q4H PRN (Reason: moderate pain (scale score 5-6)) Qty: 30 0RF lidocaine [Lidoderm] 5 % Adhesive Patch,Medicated 1 patch transdermal DAILY PRN (Reason: pain (scale score 4-6)) Qty: 15 0RF docusate sodium 100 mg Capsule 100 mg PO BID Qty: 60 0RF bisacodyl 5 mg Tablet,Delayed Release (Dr/Ec) 5 mg PO DAILY PRN (Reason: constipation) Qty: 14 0RF polyethylene glycol 3350 [HealthyLax] 17 gram Powder In Packet 17 g PO DAILY Qty: 30 0RF sodium chloride 1,000 mg Tablet,Soluble 1,000 mg PO TID Qty: 30 0RF lisinopril 40 mg tablet 40 mg PO DAILY Qty: 30 0RF alprazolam [Xanax] 0.25 mg tablet 0.25 mg PO QDAY PRN (Reason: anxiety) Qty: 30 1RF cholecalciferol (vitamin D3) [Vitamin D3] 25 mcg (1,000 unit) capsule 1,000 unit PO DAILY Qty: 90 1RF Discontinued diltiazem HCl 90 mg capsule,extended release 12 hr 90 mg PO BID Qty: 60 0RF lisinopril 20 mg tablet 20 mg PO DAILY diltiazem HCl 60 mg tablet 60 mg PO 2XD No Action (DME) pen needle, diabetic [BD Ultra-Fine Mini Pen Needle] 31 gauge x 3/16" needle See Rx Instructions .ROUTE .COMPLEX Qty: 100 1RF Dose Instruction: DIRECTED Rx Instructions: DIRECTED (DME) OneTouch Ultra Test Strip See Rx Instructions .ROUTE .COMPLEX Qty: 100 5RF Dose Instruction: TEST DAILY Rx Instructions: TEST DAILY E11.9 DM2 Did you review [place] RAIL LAYER for [place] controlled substances?: No Discussed opioids are addictive and Narcan is available by prescription or from pharmacy.: No
== END 2024-03-06 13:45 ==
LOC: MEDSURG B 10:56 → ED 10:56 → MEDSURG B 15:34
PROVIDERS: ADMIT Hospitalist; ATTEND Nurse Practitioner Family
DX: W19.XXXA Unspecified fall, initial encounter; Z59.10 Inadequate housing, unspecified; L03.116 Cellulitis of left lower limb; M19.071 Primary osteoarthritis, right ankle and foot; J44.9 Chronic obstructive pulmonary disease, unspecified; S81.802A Unspecified open wound, left lower leg, initial encounter; Z51.81 Encounter for therapeutic drug level monitoring; R29.6 Repeated falls; M62.81 Muscle weakness (generalized); I48.91 Unspecified atrial fibrillation; E11.9 Type 2 diabetes mellitus without complications; Z79.84 Long term (current) use of oral hypoglycemic drugs; Z20.822 Contact with and (suspected) exposure to COVID-19; Z79.899 Other long term (current) drug therapy